=== PATIENT | female | born 1955 | race Caucasian/White ===

== ENCOUNTER 2016-04-24 23:21 | Inpatient (IN) | payer OTHER, MEDICAID ==
[~2016-04-24] VITALS: Ht 154.9 cm; Wt 74.9 kg
[~2016-04-24 23:21] MED LIST: RISP2 PO
[2016-04-24 23:36] LABS: GLUCOSE,POINT OF CARE 118 MG/DL (70-110)
[2016-04-25 01:10] LABS: BASOPHILS % (AUTO) 0.4 % (0.0-2.0); HEMATOCRIT 35.1 % (36-46); HEMOGLOBIN 11.5 g/dL (12.0-16.0); LYMPHOCYTES # (AUTO) 1.7 K/uL (1.0-4.8); LYMPHOCYTES % (AUTO) 11.8 % (22.0-44.0); MEAN CORPUSCULAR HEMOGLOBIN 29.2 pg (26.0-34.0); MEAN CORPUSCULAR HGB CONC 32.8 G/dL (31.0-37.0); MEAN CORPUSCULAR VOLUME 89 fL (80-100); MONOCYTES # (AUTO) 1.1 K/uL (0.1-1.0); MONOCYTES % (AUTO) 7.8 % (2.0-9.0); NEUTROPHILS # (AUTO) 10.4 K/uL (1.8-7.7); PLATELET COUNT (AUTO) 244 K/uL (150-450); RED BLOOD CELL COUNT(AUTO) 3.94 MIL/uL (4.00-5.20); RED CELL DISTRIBUTION WIDTH 14.1 % (11.5-14.5); WHITE BLOOD COUNT (AUTO) 14.1 K/uL (4.5-11.0)
[2016-04-25 01:16] LABS: ANION GAP 7 mmol/L (8-16); CALCIUM, TOTAL 8.5 mg/dL (8.8-10.5); CARBON DIOXIDE 29 mmol/L (22-29); CHLORIDE 104 mmol/L (98-107); CREATININE 0.74 mg/dL (0.60-1.30); GLOMERULAR FILTR. RATE CALC > 60 mL/min (>60); POTASSIUM 3.7 mmol/L (3.5-5.1); SODIUM SERUM 140 mmol/L (136-145); UREA NITROGEN, BLOOD 17 mg/dL (7-18)
[2016-04-25 01:21] LABS: ALANINE AMINOTRANSFERASE 21 U/L (12-78); ALBUMIN 3.2 g/dL (3.4-5.0); ASPARTATE AMINOTRANSFERASE 11 U/L (15-37); BILIRUBIN,TOTAL 0.2 mg/dL (0.1-1.0); TOTAL PROTEIN, SERUM 6.6 g/dL (6.4-8.2)
[2016-04-25] MEDS ORDERED: HALOPERIDOL LACTATE 5 MG/ML VIAL IM ONE (01:45)
[2016-04-25] MEDS ORDERED: DiphenhydrAMINE HCL 50 MG/ML VIAL IM ONE (01:45)
[2016-04-25] MEDS ORDERED: LORazepam 2 MG/ML VIAL IM ONE (01:45)
[2016-04-25] MEDS: LORazepam 2 MG TABLET PO PRN (01:53)
[2016-04-25] MEDS: HALOPERIDOL 5 MG TABLET PO PRN (01:53)
[2016-04-25 06:09] VITALS: BP 113/60
[2016-04-25 08:43] VITALS: BP 131/66
[2016-04-25] MEDS ORDERED: IBUPROFEN 600 MG TABLET PO PRN (11:45)
[2016-04-25] MEDS: ACETAMINOPHEN 325 MG TABLET PO SCH ×2 (12:52→17:02)
[2016-04-25 16:09] VITALS: BP 129/59
[2016-04-25] MEDS: OXYBUTYNIN CHLORIDE 5 MG TABLET PO SCH (20:16)
[2016-04-26] MEDS: ACETAMINOPHEN 325 MG TABLET PO SCH ×2 (06:00)
[2016-04-26 08:04] VITALS: BP 110/88
[2016-04-26] MEDS: AmLODIPine BESYLATE 5 MG TABLET PO SCH (08:33)
[2016-04-26] MEDS: LORATADINE 10 MG TABLET PO SCH (08:33)
[2016-04-26] MEDS: TERBINAFINE HCL 250 MG TABLET PO SCH (08:33)
[2016-04-26] MEDS: ALLOPURINOL 300 MG TABLET PO SCH (08:33)
[2016-04-26 09:54] LABS: APPEARANCE,URINE CLOUDY (CLEAR); GLUCOSE, URINE (UA) NEGATIVE (NEGATIVE); KETONES,URINE NEGATIVE (NEGATIVE); LEUKOCYTE ESTERASE ,URINE MODERATE (NEGATIVE); OCCULT BLOOD,URINE NEGATIVE (NEGATIVE); PH,URINE 6.5 (5.0-8.0); PROTEIN,URINE NEGATIVE (NEGATIVE)
[2016-04-26 09:58] LABS: ADD UA MICROSCOPIC YES
[2016-04-26 10:07] LABS: RBC,URINE None Seen /HPF (0-2); SQUAMOUS EPITHELIAL CELL,UR Rare /LPF (None Seen)
[2016-04-26] MEDS ORDERED: ACETAMINOPHEN 325 MG TABLET PO PRN (12:00)
[2016-04-26] MEDS: LORazepam 2 MG TABLET PO PRN (13:59)
[2016-04-26 16:06] VITALS: BP 130/71
[2016-04-26] MEDS: OXYBUTYNIN CHLORIDE 5 MG TABLET PO SCH (21:10)
[2016-04-27 06:27] VITALS: BP 134/63
[2016-04-27 08:26] VITALS: BP 133/66
[2016-04-27 08:26] LABS: BASOPHILS % (AUTO) 0.7 % (0.0-2.0); EOSINOPHILS % (AUTO) 12.4 % (1.0-6.0); HEMATOCRIT 36.5 % (36-46); LYMPHOCYTES # (AUTO) 2.1 K/uL (1.0-4.8); MEAN CORPUSCULAR HEMOGLOBIN 29.4 pg (26.0-34.0); MEAN CORPUSCULAR HGB CONC 32.7 G/dL (31.0-37.0); MEAN CORPUSCULAR VOLUME 90 fL (80-100); MONOCYTES # (AUTO) 0.7 K/uL (0.1-1.0); MONOCYTES % (AUTO) 9.6 % (2.0-9.0); NEUTROPHILS # (AUTO) 3.4 K/uL (1.8-7.7); NEUTROPHILS % (AUTO) 47.3 % (40.0-70.0); PLATELET COUNT (AUTO) 251 K/uL (150-450); RED BLOOD CELL COUNT(AUTO) 4.07 MIL/uL (4.00-5.20); RED CELL DISTRIBUTION WIDTH 14.2 % (11.5-14.5); WHITE BLOOD COUNT (AUTO) 7.1 K/uL (4.5-11.0)
[2016-04-27] MEDS: LORATADINE 10 MG TABLET PO SCH (09:42)
[2016-04-27] MEDS: TERBINAFINE HCL 250 MG TABLET PO SCH (09:42)
[2016-04-27] MEDS: AmLODIPine BESYLATE 5 MG TABLET PO SCH (09:42)
[2016-04-27] MEDS: ALLOPURINOL 300 MG TABLET PO SCH (09:42)
[2016-04-27] MEDS: LORazepam 2 MG TABLET PO PRN (09:42)
[2016-04-27] MEDS: OXYBUTYNIN CHLORIDE 5 MG TABLET PO SCH (21:00)
[2016-04-28] MEDS: ALLOPURINOL 300 MG TABLET PO SCH (09:00)
[2016-04-28] MEDS: AmLODIPine BESYLATE 5 MG TABLET PO SCH (09:00)
[2016-04-28] MEDS: TERBINAFINE HCL 250 MG TABLET PO SCH (09:00)
[2016-04-28] MEDS: LORATADINE 10 MG TABLET PO SCH (09:00)
[2016-04-28] MEDS ORDERED: PERMETHRIN 1% 60 ML LOTION TP ONE (16:00)
[2016-04-28] MEDS: OXYBUTYNIN CHLORIDE 5 MG TABLET PO SCH (21:00)
[2016-04-28] MEDS ORDERED: PERMETHRIN 5% 60 GM CREAM TP ONE (23:35)
[2016-04-28] MEDS: HALOPERIDOL 5 MG TABLET PO PRN (23:55)
[2016-04-28] MEDS: LORazepam 2 MG TABLET PO PRN (23:55)
[2016-04-29 08:54] VITALS: BP 131/69
[2016-04-29] MEDS: ALLOPURINOL 300 MG TABLET PO SCH (10:21)
[2016-04-29] MEDS: AmLODIPine BESYLATE 5 MG TABLET PO SCH (10:21)
[2016-04-29] MEDS: TERBINAFINE HCL 250 MG TABLET PO SCH (10:21)
[2016-04-29] MEDS: LORazepam 2 MG TABLET PO PRN (10:21)
[2016-04-29] MEDS: LORATADINE 10 MG TABLET PO SCH (10:22)
[2016-04-29 16:04] VITALS: BP 108/67
[2016-04-29] MEDS: NITROFURANTOIN/NITROFURAN MAC 100 MG CAPSULE [MACROBID] PO SCH (17:17)
[2016-04-29] MEDS: OXYBUTYNIN CHLORIDE 5 MG TABLET PO SCH (20:36)
[2016-04-30 08:30] VITALS: BP 112/62
[2016-04-30] MEDS: LORATADINE 10 MG TABLET PO SCH (08:42)
[2016-04-30] MEDS: ALLOPURINOL 300 MG TABLET PO SCH (08:42)
[2016-04-30] MEDS: NITROFURANTOIN/NITROFURAN MAC 100 MG CAPSULE [MACROBID] PO SCH ×2 (08:42→16:27)
[2016-04-30] MEDS: AmLODIPine BESYLATE 5 MG TABLET PO SCH (08:42)
[2016-04-30] MEDS: TERBINAFINE HCL 250 MG TABLET PO SCH (08:42)
[2016-04-30 16:00] VITALS: BP 137/81
[2016-04-30] MEDS: OXYBUTYNIN CHLORIDE 5 MG TABLET PO SCH (20:11)
[2016-05-01 09:01] VITALS: BP 110/62
[2016-05-01] MEDS: ALLOPURINOL 300 MG TABLET PO SCH (09:20)
[2016-05-01] MEDS: LORATADINE 10 MG TABLET PO SCH (09:20)
[2016-05-01] MEDS: NITROFURANTOIN/NITROFURAN MAC 100 MG CAPSULE [MACROBID] PO SCH ×2 (09:20→16:40)
[2016-05-01] MEDS: AmLODIPine BESYLATE 5 MG TABLET PO SCH (09:20)
[2016-05-01] MEDS: TERBINAFINE HCL 250 MG TABLET PO SCH (09:20)
[2016-05-01 16:05] VITALS: BP 117/65
[2016-05-01] MEDS: OXYBUTYNIN CHLORIDE 5 MG TABLET PO SCH (20:35)
[2016-05-02 08:31] VITALS: BP 120/59
[2016-05-02] MEDS ORDERED: RisperiDONE MICROSPHERES 50 MG/2 ML SYRINGE IM SCH (09:00)
[2016-05-02] MEDS: AmLODIPine BESYLATE 5 MG TABLET PO SCH (09:18)
[2016-05-02] MEDS: LORATADINE 10 MG TABLET PO SCH (09:18)
[2016-05-02] MEDS: ALLOPURINOL 300 MG TABLET PO SCH (09:18)
[2016-05-02] MEDS: TERBINAFINE HCL 250 MG TABLET PO SCH (09:18)
[2016-05-02] MEDS: NITROFURANTOIN/NITROFURAN MAC 100 MG CAPSULE [MACROBID] PO SCH (09:18)
[2016-05-02] MEDS: NICOTINE 21 MG/24 HOUR PATCH TD SCH (10:45)
[2016-05-02] MEDS ORDERED: RISPC50 IM (11:32)
[2016-05-02] MEDS ORDERED: OXYB5 PO (11:34)
[2016-05-02] MEDS ORDERED: LORA10TA7 PO (11:42)
[2016-05-02] MEDS ORDERED: TERB250 PO (11:43)
[2016-05-02] MEDS ORDERED: ALLO300 PO (11:44)
[2016-05-02] MEDS ORDERED: AMLO-511 PO (11:44)
[2016-05-02 16:07] VITALS: BP 128/85
[2016-05-02] MEDS: OXYBUTYNIN CHLORIDE 5 MG TABLET PO SCH (20:09)
[2016-05-03 06:55] VITALS: BP 133/72
[2016-05-03 08:14] VITALS: BP 148/64
[2016-05-03] MEDS: AmLODIPine BESYLATE 5 MG TABLET PO SCH (08:48)
[2016-05-03] MEDS: ALLOPURINOL 300 MG TABLET PO SCH (08:48)
[2016-05-03] MEDS: TERBINAFINE HCL 250 MG TABLET PO SCH (08:48)
[2016-05-03] MEDS: LORATADINE 10 MG TABLET PO SCH (08:49)
[2016-05-03] MEDS: NICOTINE 21 MG/24 HOUR PATCH TD SCH (09:00)
[2016-05-03 16:02] VITALS: BP 128/80
[2016-05-03] MEDS: OXYBUTYNIN CHLORIDE 5 MG TABLET PO SCH (20:02)
[2016-05-03] MEDS: LORazepam 2 MG TABLET PO PRN (21:51)
[2016-05-04 08:40] VITALS: BP 134/70
[2016-05-04] MEDS: ALLOPURINOL 300 MG TABLET PO SCH (10:52)
[2016-05-04] MEDS: TERBINAFINE HCL 250 MG TABLET PO SCH (10:52)
[2016-05-04] MEDS: AmLODIPine BESYLATE 5 MG TABLET PO SCH (10:53)
[2016-05-04] MEDS: LORATADINE 10 MG TABLET PO SCH (10:53)
[2016-05-04] MEDS: NICOTINE 21 MG/24 HOUR PATCH TD SCH (10:54)
[2016-05-04 16:07] VITALS: BP 132/81
[2016-05-04] MEDS: OXYBUTYNIN CHLORIDE 5 MG TABLET PO SCH (20:11)
[2016-05-05 08:13] VITALS: BP 120/60
[2016-05-05] MEDS: HALOPERIDOL 5 MG TABLET PO PRN (10:04)
[2016-05-05] MEDS: ALLOPURINOL 300 MG TABLET PO SCH (10:04)
[2016-05-05] MEDS: AmLODIPine BESYLATE 5 MG TABLET PO SCH (10:04)
[2016-05-05] MEDS: LORazepam 2 MG TABLET PO PRN ×2 (10:04→20:48)
[2016-05-05] MEDS: LORATADINE 10 MG TABLET PO SCH (10:04)
[2016-05-05] MEDS: TERBINAFINE HCL 250 MG TABLET PO SCH (10:05)
[2016-05-05] MEDS: NICOTINE 21 MG/24 HOUR PATCH TD SCH (10:05)
[2016-05-05] MEDS ORDERED: PERMETHRIN 1% 60 ML LOTION TP ONE (12:00)
[2016-05-05 16:42] VITALS: BP 121/61
[2016-05-05] MEDS: OXYBUTYNIN CHLORIDE 5 MG TABLET PO SCH (20:48)
[2016-05-06 08:30] VITALS: BP 146/69
[2016-05-06] MEDS: AmLODIPine BESYLATE 5 MG TABLET PO SCH (10:35)
[2016-05-06] MEDS: TERBINAFINE HCL 250 MG TABLET PO SCH (10:35)
[2016-05-06] MEDS: LORATADINE 10 MG TABLET PO SCH (10:35)
[2016-05-06] MEDS: ALLOPURINOL 300 MG TABLET PO SCH (10:35)
[2016-05-06] MEDS: NICOTINE 21 MG/24 HOUR PATCH TD SCH (10:36)
[2016-05-06 16:33] VITALS: BP 135/77
[2016-05-06] MEDS: LORazepam 2 MG TABLET PO PRN (20:05)
[2016-05-06] MEDS: OXYBUTYNIN CHLORIDE 5 MG TABLET PO SCH (20:10)
[2016-05-06] MEDS: ZOLPIDEM TARTRATE 10 MG TABLET PO PRN (22:38)
[2016-05-07] MEDS: AmLODIPine BESYLATE 5 MG TABLET PO SCH (08:03)
[2016-05-07] MEDS: ALLOPURINOL 300 MG TABLET PO SCH (08:03)
[2016-05-07] MEDS: LORATADINE 10 MG TABLET PO SCH (08:03)
[2016-05-07] MEDS: NICOTINE 21 MG/24 HOUR PATCH TD SCH (08:03)
[2016-05-07] MEDS: TERBINAFINE HCL 250 MG TABLET PO SCH (08:03)
[2016-05-07 08:30] VITALS: BP 112/61
[2016-05-07] MEDS: LORazepam 2 MG TABLET PO PRN ×2 (09:06→16:01)
[2016-05-07] MEDS ORDERED: IVERMECTIN 3 MG TABLET PO ONE (12:00)
[2016-05-07 16:03] VITALS: BP 118/61
[2016-05-07] MEDS: ZOLPIDEM TARTRATE 10 MG TABLET PO PRN (20:55)
[2016-05-07] MEDS: OXYBUTYNIN CHLORIDE 5 MG TABLET PO SCH (20:55)
[2016-05-08] MEDS: NICOTINE 21 MG/24 HOUR PATCH TD SCH (10:20)
[2016-05-08] MEDS: AmLODIPine BESYLATE 5 MG TABLET PO SCH (10:20)
[2016-05-08] MEDS: LORATADINE 10 MG TABLET PO SCH (10:20)
[2016-05-08] MEDS: TERBINAFINE HCL 250 MG TABLET PO SCH (10:20)
[2016-05-08] MEDS: ALLOPURINOL 300 MG TABLET PO SCH (10:20)
[2016-05-08 16:11] VITALS: BP 124/69
[2016-05-08] MEDS: LORazepam 2 MG TABLET PO PRN (16:22)
[2016-05-08] MEDS: OXYBUTYNIN CHLORIDE 5 MG TABLET PO SCH (20:05)
[2016-05-08] MEDS: ZOLPIDEM TARTRATE 10 MG TABLET PO PRN (20:05)
[2016-05-09 06:43] VITALS: BP 130/72
[2016-05-09 08:28] VITALS: BP 126/69
[2016-05-09] MEDS: TERBINAFINE HCL 250 MG TABLET PO SCH (08:28)
[2016-05-09] MEDS: AmLODIPine BESYLATE 5 MG TABLET PO SCH (08:28)
[2016-05-09] MEDS: LORATADINE 10 MG TABLET PO SCH (08:28)
[2016-05-09] MEDS: ALLOPURINOL 300 MG TABLET PO SCH (08:28)
[2016-05-09] MEDS: NICOTINE 21 MG/24 HOUR PATCH TD SCH (08:29)
[2016-05-09] MEDS: LORazepam 2 MG TABLET PO PRN (10:06)
[2016-05-09 16:01] VITALS: BP 114/57
[2016-05-09] MEDS: OXYBUTYNIN CHLORIDE 5 MG TABLET PO SCH (20:09)
[2016-05-10 05:41] VITALS: BP 104/53
[2016-05-10 08:19] VITALS: BP 108/64
[2016-05-10] MEDS: AmLODIPine BESYLATE 5 MG TABLET PO SCH (09:44)
[2016-05-10] MEDS: LORATADINE 10 MG TABLET PO SCH (09:44)
[2016-05-10] MEDS: ALLOPURINOL 300 MG TABLET PO SCH (09:45)
[2016-05-10] MEDS: TERBINAFINE HCL 250 MG TABLET PO SCH (09:45)
[2016-05-10] MEDS: NICOTINE 21 MG/24 HOUR PATCH TD SCH (09:45)
== END 2016-05-10 15:21 | disposition home or self-care (01) | DRG 750 ==
LOC: EMS 23:26 → B3A 04-25 01:15
PROVIDERS: ADMIT Psychiatry & Neurology Psychiatry; ATTEND Psychiatry & Neurology Psychiatry
DX: F25.0 Schizoaffective disorder, bipolar type (principal); F23 Brief psychotic disorder; J44.9 Chronic obstructive pulmonary disease, unspecified; B19.20 Unspecified viral hepatitis C without hepatic coma; B85.2 Pediculosis, unspecified; D72.829 Elevated white blood cell count, unspecified; F22 Delusional disorders; F17.210 Nicotine dependence, cigarettes, uncomplicated; R32 Unspecified urinary incontinence; Z88.5 Allergy status to narcotic agent; Z88.8 Allergy status to other drugs, medicaments and biological substances; Z91.02 Food additives allergy status; Z79.899 Other long term (current) drug therapy; Z90.49 Acquired absence of other specified parts of digestive tract
CPT/HCPCS: 80307; 82962; 87081; 87086; 99285; G0480; J2794

== ENCOUNTER 2016-07-08 16:15 | Inpatient (IN) | payer MEDICAID, OTHER ==
[~2016-07-08] VITALS: Ht 157.5 cm; Wt 75.3 kg
[2016-07-08] MEDS ORDERED: DiphenhydrAMINE HCL 50 MG/ML VIAL IM ONE (16:30)
[2016-07-08] MEDS ORDERED: HALOPERIDOL LACTATE 5 MG/ML VIAL IM ONE (16:30)
[2016-07-08] MEDS ORDERED: LORazepam 2 MG/ML VIAL IM ONE (16:30)
[2016-07-08 16:32] LABS: BASOPHILS % (AUTO) 0.5 % (0.0-2.0); EOSINOPHILS % (AUTO) 1.4 % (1.0-6.0); HEMATOCRIT 34.8 % (36-46); HEMOGLOBIN 11.4 g/dL (12.0-16.0); LYMPHOCYTES # (AUTO) 1.9 K/uL (1.0-4.8); LYMPHOCYTES % (AUTO) 25.1 % (22.0-44.0); MEAN CORPUSCULAR HEMOGLOBIN 29.2 pg (26.0-34.0); MEAN CORPUSCULAR HGB CONC 32.7 G/dL (31.0-37.0); MEAN CORPUSCULAR VOLUME 89 fL (80-100); MONOCYTES # (AUTO) 0.6 K/uL (0.1-1.0); MONOCYTES % (AUTO) 7.5 % (2.0-9.0); NEUTROPHILS # (AUTO) 4.9 K/uL (1.8-7.7); NEUTROPHILS % (AUTO) 65.5 % (40.0-70.0); PLATELET COUNT (AUTO) 255 K/uL (150-450); RED BLOOD CELL COUNT(AUTO) 3.89 MIL/uL (4.00-5.20); RED CELL DISTRIBUTION WIDTH 15.3 % (11.5-14.5); WHITE BLOOD COUNT (AUTO) 7.5 K/uL (4.5-11.0)
[2016-07-08 16:42] LABS: ANION GAP 10 mmol/L (8-16); CALCIUM, TOTAL 8.9 mg/dL (8.8-10.5); CARBON DIOXIDE 28 mmol/L (22-29); CHLORIDE 109 mmol/L (98-107); CREATININE 0.61 mg/dL (0.60-1.30); GLOMERULAR FILTR. RATE CALC > 60 mL/min (>60); POTASSIUM 3.9 mmol/L (3.5-5.1); SODIUM SERUM 147 mmol/L (136-145); UREA NITROGEN, BLOOD 11 mg/dL (7-18)
[2016-07-08 16:50] LABS: ALANINE AMINOTRANSFERASE 14 U/L (12-78); ALBUMIN 3.4 g/dL (3.4-5.0); ASPARTATE AMINOTRANSFERASE 8 U/L (15-37); BILIRUBIN,TOTAL 0.2 mg/dL (0.1-1.0)
[2016-07-08] MEDS ORDERED: PERMETHRIN 1% 60 ML LOTION TP ONE (18:00)
[2016-07-09] MEDS ORDERED: ACETAMINOPHEN 325 MG TABLET PO PRN (11:45)
[2016-07-09] MEDS ORDERED: ONDANSETRON HCL 4 MG/2 ML VIAL IVP PRN (11:45)
[2016-07-09 12:37] VITALS: BP 139/77
[2016-07-09] MEDS: HALOPERIDOL 5 MG TABLET PO PRN (13:26)
[2016-07-09] MEDS: LORazepam 2 MG TABLET PO PRN (13:26)
[2016-07-09 16:31] VITALS: BP 122/59
[2016-07-09] MEDS: RisperiDONE 2 MG TABLET PO SCH (20:20)
[2016-07-09] MEDS: OXYBUTYNIN CHLORIDE 5 MG TABLET PO SCH (20:20)
[2016-07-10] MEDS: RisperiDONE 2 MG TABLET PO SCH ×2 (07:37→21:00)
[2016-07-10] MEDS: TERBINAFINE HCL 250 MG TABLET PO SCH (07:38)
[2016-07-10] MEDS: ALLOPURINOL 300 MG TABLET PO SCH (07:38)
[2016-07-10] MEDS: AmLODIPine BESYLATE 5 MG TABLET PO SCH (07:38)
[2016-07-10] MEDS: LORATADINE 10 MG TABLET PO SCH (07:38)
[2016-07-10] MEDS: HALOPERIDOL 5 MG TABLET PO PRN (07:39)
[2016-07-10] MEDS: LORazepam 2 MG TABLET PO PRN (07:39)
[2016-07-10 08:00] VITALS: BP 130/77
[2016-07-10] MEDS ORDERED: RISPC50 IM (15:06)
[2016-07-10 16:04] VITALS: BP 147/86
[2016-07-10] MEDS: RisperiDONE MICROSPHERES 50 MG/2 ML SYRINGE IM SCH (16:49)
[2016-07-10] MEDS: OXYBUTYNIN CHLORIDE 5 MG TABLET PO SCH (20:59)
[2016-07-11] MEDS: LORATADINE 10 MG TABLET PO SCH (08:26)
[2016-07-11] MEDS: AmLODIPine BESYLATE 5 MG TABLET PO SCH (08:26)
[2016-07-11] MEDS: ALLOPURINOL 300 MG TABLET PO SCH (08:26)
[2016-07-11] MEDS: RisperiDONE 2 MG TABLET PO SCH ×2 (08:26→21:57)
[2016-07-11] MEDS: TERBINAFINE HCL 250 MG TABLET PO SCH (08:27)
[2016-07-11 08:55] VITALS: BP 122/93
[2016-07-11] MEDS: LORazepam 2 MG TABLET PO PRN (09:00)
[2016-07-11] MEDS: HALOPERIDOL 5 MG TABLET PO PRN (09:01)
[2016-07-11 16:17] VITALS: BP 140/79
[2016-07-11] MEDS: OXYBUTYNIN CHLORIDE 5 MG TABLET PO SCH (21:57)
[2016-07-12] MEDS: AmLODIPine BESYLATE 5 MG TABLET PO SCH (08:02)
[2016-07-12] MEDS: TERBINAFINE HCL 250 MG TABLET PO SCH (08:02)
[2016-07-12] MEDS: LORATADINE 10 MG TABLET PO SCH (08:02)
[2016-07-12] MEDS: ALLOPURINOL 300 MG TABLET PO SCH (08:03)
[2016-07-12] MEDS: RisperiDONE 2 MG TABLET PO SCH ×2 (08:03→21:20)
[2016-07-12 08:05] VITALS: BP 132/77
[2016-07-12 16:27] VITALS: BP 125/82
[2016-07-12] MEDS: OXYBUTYNIN CHLORIDE 5 MG TABLET PO SCH (21:21)
[2016-07-12] MEDS: LORazepam 2 MG TABLET PO PRN (23:41)
[2016-07-12] MEDS: HALOPERIDOL 5 MG TABLET PO PRN (23:54)
[2016-07-13] MEDS ORDERED: LORazepam 2 MG/ML VIAL IM ONE (00:45)
[2016-07-13] MEDS ORDERED: DiphenhydrAMINE HCL 50 MG/ML VIAL IM ONE (00:45)
[2016-07-13] MEDS ORDERED: HALOPERIDOL LACTATE 5 MG/ML VIAL IM ONE (00:45)
[2016-07-13 01:11] VITALS: BP 120/80
[2016-07-13 02:11] VITALS: BP 128/82
[2016-07-13] MEDS: LORATADINE 10 MG TABLET PO SCH (10:50)
[2016-07-13] MEDS: TERBINAFINE HCL 250 MG TABLET PO SCH (10:50)
[2016-07-13] MEDS: OXYBUTYNIN CHLORIDE 5 MG TABLET PO SCH (10:50)
[2016-07-13] MEDS: ALLOPURINOL 300 MG TABLET PO SCH (10:50)
[2016-07-13] MEDS: RisperiDONE 2 MG TABLET PO SCH ×2 (10:50→20:21)
[2016-07-13] MEDS: HALOPERIDOL 5 MG TABLET PO PRN (10:53)
[2016-07-13] MEDS: LORazepam 2 MG TABLET PO PRN (10:53)
[2016-07-13] MEDS: AmLODIPine BESYLATE 5 MG TABLET PO SCH (10:53)
[2016-07-13 16:25] VITALS: BP 124/83
[2016-07-13 16:27] VITALS: BP 124/83
[2016-07-14] MEDS: TERBINAFINE HCL 250 MG TABLET PO SCH (10:57)
[2016-07-14] MEDS: RisperiDONE 2 MG TABLET PO SCH ×2 (10:57→21:08)
[2016-07-14] MEDS: ALLOPURINOL 300 MG TABLET PO SCH (10:57)
[2016-07-14] MEDS: LORATADINE 10 MG TABLET PO SCH (10:57)
[2016-07-14] MEDS: AmLODIPine BESYLATE 5 MG TABLET PO SCH (10:58)
[2016-07-14] MEDS: HALOPERIDOL 5 MG TABLET PO PRN (11:01)
[2016-07-14] MEDS ORDERED: FLUCONAZOLE 150 MG TABLET PO ONE (11:30)
[2016-07-14 12:33] VITALS: BP 134/80
[2016-07-14 13:06] LABS: APPEARANCE,URINE TURBID (CLEAR); GLUCOSE, URINE (UA) NEGATIVE (NEGATIVE); KETONES,URINE NEGATIVE (NEGATIVE); LEUKOCYTE ESTERASE ,URINE LARGE (NEGATIVE); OCCULT BLOOD,URINE LARGE (NEGATIVE); PH,URINE 5.5 (5.0-8.0); PROTEIN,URINE SEE CONFIRM (NEGATIVE)
[2016-07-14 13:16] LABS: SQUAMOUS EPITHELIAL CELL,UR Moderate /LPF (None Seen); SULFOSALICYLIC ACID,URINE 2+ (Negative); WBC,URINE 51-100 /HPF (0-5)
[2016-07-14] MEDS: LORazepam 2 MG TABLET PO PRN (14:45)
[2016-07-14] MEDS: NITROFURANTOIN/NITROFURAN MAC 100 MG CAPSULE [MACROBID] PO SCH (16:41)
[2016-07-14 17:48] VITALS: BP 121/69
[2016-07-14] MEDS: OXYBUTYNIN CHLORIDE 5 MG TABLET PO SCH (21:08)
[2016-07-15] MEDS: AmLODIPine BESYLATE 5 MG TABLET PO SCH (08:08)
[2016-07-15] MEDS: NITROFURANTOIN/NITROFURAN MAC 100 MG CAPSULE [MACROBID] PO SCH ×2 (08:08→16:53)
[2016-07-15] MEDS: LORazepam 2 MG TABLET PO PRN ×2 (08:08→18:11)
[2016-07-15] MEDS: RisperiDONE 2 MG TABLET PO SCH ×2 (08:08→20:12)
[2016-07-15] MEDS: HALOPERIDOL 5 MG TABLET PO PRN ×2 (08:08→18:11)
[2016-07-15] MEDS: LORATADINE 10 MG TABLET PO SCH (08:08)
[2016-07-15] MEDS: TERBINAFINE HCL 250 MG TABLET PO SCH (08:08)
[2016-07-15] MEDS: ALLOPURINOL 300 MG TABLET PO SCH (08:09)
[2016-07-15 08:17] VITALS: BP 112/80
[2016-07-15] MEDS ORDERED: NICOTINE 21 MG/24 HOUR PATCH TD ONE (14:30)
[2016-07-15 17:04] VITALS: BP 131/76
[2016-07-15] MEDS: OXYBUTYNIN CHLORIDE 5 MG TABLET PO SCH (20:12)
[2016-07-16] MEDS: RisperiDONE 2 MG TABLET PO SCH ×2 (07:54→21:04)
[2016-07-16] MEDS: LORazepam 2 MG TABLET PO PRN ×2 (07:54→16:02)
[2016-07-16] MEDS: NITROFURANTOIN/NITROFURAN MAC 100 MG CAPSULE [MACROBID] PO SCH ×2 (07:54→16:03)
[2016-07-16] MEDS: AmLODIPine BESYLATE 5 MG TABLET PO SCH (07:54)
[2016-07-16] MEDS: HALOPERIDOL 5 MG TABLET PO PRN ×2 (07:54→16:02)
[2016-07-16] MEDS: LORATADINE 10 MG TABLET PO SCH (07:55)
[2016-07-16] MEDS: TERBINAFINE HCL 250 MG TABLET PO SCH (07:55)
[2016-07-16] MEDS: ALLOPURINOL 300 MG TABLET PO SCH (07:55)
[2016-07-16] MEDS: LOPERAMIDE HCL 2 MG CAPSULE PO PRN (07:56)
[2016-07-16 08:00] VITALS: BP 131/67
[2016-07-16] MEDS: NICOTINE 21 MG/24 HOUR PATCH TD SCH (08:03)
[2016-07-16 16:38] VITALS: BP 133/78
[2016-07-16] MEDS: OXYBUTYNIN CHLORIDE 5 MG TABLET PO SCH (21:04)
[2016-07-17] MEDS: RisperiDONE 2 MG TABLET PO SCH ×2 (07:43→20:22)
[2016-07-17] MEDS: HALOPERIDOL 5 MG TABLET PO PRN ×2 (07:43→15:30)
[2016-07-17] MEDS: LORazepam 2 MG TABLET PO PRN ×2 (07:43→15:30)
[2016-07-17] MEDS: ALLOPURINOL 300 MG TABLET PO SCH (07:44)
[2016-07-17] MEDS: AmLODIPine BESYLATE 5 MG TABLET PO SCH (07:44)
[2016-07-17] MEDS: TERBINAFINE HCL 250 MG TABLET PO SCH (07:44)
[2016-07-17] MEDS: LORATADINE 10 MG TABLET PO SCH (07:45)
[2016-07-17] MEDS: NITROFURANTOIN/NITROFURAN MAC 100 MG CAPSULE [MACROBID] PO SCH (07:45)
[2016-07-17] MEDS: NICOTINE 21 MG/24 HOUR PATCH TD SCH (07:54)
[2016-07-17 10:02] VITALS: BP 121/52
[2016-07-17 16:00] VITALS: BP 143/70
[2016-07-17] MEDS: OXYBUTYNIN CHLORIDE 5 MG TABLET PO SCH (20:22)
[2016-07-18] MEDS: TERBINAFINE HCL 250 MG TABLET PO SCH (09:42)
[2016-07-18] MEDS: LORATADINE 10 MG TABLET PO SCH (09:42)
[2016-07-18] MEDS: ALLOPURINOL 300 MG TABLET PO SCH (09:42)
[2016-07-18] MEDS: AmLODIPine BESYLATE 5 MG TABLET PO SCH (09:43)
[2016-07-18] MEDS: RisperiDONE 2 MG TABLET PO SCH ×2 (09:43→20:22)
[2016-07-18] MEDS: DIVALPROEX SODIUM 500 MG DR TABLET PO SCH ×2 (09:44→20:22)
[2016-07-18 09:45] VITALS: BP 124/82
[2016-07-18] MEDS: NICOTINE 21 MG/24 HOUR PATCH TD SCH (09:59)
[2016-07-18 17:36] VITALS: BP 128/78
[2016-07-18] MEDS: OXYBUTYNIN CHLORIDE 5 MG TABLET PO SCH (20:22)
[2016-07-19] MEDS: LORazepam 2 MG TABLET PO PRN (03:39)
[2016-07-19 03:42] VITALS: BP 122/76
[2016-07-19] MEDS ORDERED: IBUPROFEN 600 MG TABLET PO PRN (08:15)
[2016-07-19 08:18] VITALS: BP 132/71
[2016-07-19] MEDS: TERBINAFINE HCL 250 MG TABLET PO SCH (08:41)
[2016-07-19] MEDS: RisperiDONE 2 MG TABLET PO SCH ×2 (08:41→21:30)
[2016-07-19] MEDS: LORATADINE 10 MG TABLET PO SCH (08:41)
[2016-07-19] MEDS: ALLOPURINOL 300 MG TABLET PO SCH (08:41)
[2016-07-19] MEDS: AmLODIPine BESYLATE 5 MG TABLET PO SCH (08:41)
[2016-07-19] MEDS: DIVALPROEX SODIUM 500 MG DR TABLET PO SCH ×2 (08:41→21:30)
[2016-07-19] MEDS: NICOTINE 21 MG/24 HOUR PATCH TD SCH (08:42)
[2016-07-19 16:38] VITALS: BP 141/88
[2016-07-19] MEDS: OXYBUTYNIN CHLORIDE 5 MG TABLET PO SCH (21:31)
[2016-07-20 08:28] VITALS: BP 106/55
[2016-07-20] MEDS: TERBINAFINE HCL 250 MG TABLET PO SCH (09:17)
[2016-07-20] MEDS: DIVALPROEX SODIUM 500 MG DR TABLET PO SCH ×2 (09:17→20:02)
[2016-07-20] MEDS: LORATADINE 10 MG TABLET PO SCH (09:17)
[2016-07-20] MEDS: RisperiDONE 2 MG TABLET PO SCH ×2 (09:17→20:02)
[2016-07-20] MEDS: AmLODIPine BESYLATE 5 MG TABLET PO SCH (09:17)
[2016-07-20] MEDS: ALLOPURINOL 300 MG TABLET PO SCH (09:18)
[2016-07-20] MEDS: NICOTINE 21 MG/24 HOUR PATCH TD SCH (09:22)
[2016-07-20] MEDS: LOPERAMIDE HCL 2 MG CAPSULE PO PRN (13:45)
[2016-07-20 16:00] VITALS: BP 118/63
[2016-07-20] MEDS: OXYBUTYNIN CHLORIDE 5 MG TABLET PO SCH (20:02)
[2016-07-21 08:00] VITALS: BP 122/73
[2016-07-21 08:32] VITALS: BP 122/73
[2016-07-21] MEDS: TERBINAFINE HCL 250 MG TABLET PO SCH (08:42)
[2016-07-21] MEDS: RisperiDONE 2 MG TABLET PO SCH ×2 (08:42→20:24)
[2016-07-21] MEDS: AmLODIPine BESYLATE 5 MG TABLET PO SCH (08:42)
[2016-07-21] MEDS: ALLOPURINOL 300 MG TABLET PO SCH (08:42)
[2016-07-21] MEDS: DIVALPROEX SODIUM 500 MG DR TABLET PO SCH ×2 (08:42→20:24)
[2016-07-21] MEDS: LORATADINE 10 MG TABLET PO SCH (08:42)
[2016-07-21] MEDS: NICOTINE 21 MG/24 HOUR PATCH TD SCH (12:54)
[2016-07-21] MEDS: LORazepam 2 MG TABLET PO PRN (15:57)
[2016-07-21] MEDS: HALOPERIDOL 5 MG TABLET PO PRN (15:58)
[2016-07-21 19:58] VITALS: BP 124/69
[2016-07-21] MEDS: OXYBUTYNIN CHLORIDE 5 MG TABLET PO SCH (20:24)
[2016-07-22 08:58] VITALS: BP 121/64
[2016-07-22] MEDS: SULFAMETHOX/TRIMETH DS 800-160 MG/TABLET PO SCH ×2 (09:04→16:36)
[2016-07-22] MEDS: LORATADINE 10 MG TABLET PO SCH (09:05)
[2016-07-22] MEDS: TERBINAFINE HCL 250 MG TABLET PO SCH (09:05)
[2016-07-22] MEDS: ALLOPURINOL 300 MG TABLET PO SCH (09:05)
[2016-07-22] MEDS: DIVALPROEX SODIUM 500 MG DR TABLET PO SCH ×2 (09:05→20:54)
[2016-07-22] MEDS: RisperiDONE 2 MG TABLET PO SCH ×2 (09:05→20:53)
[2016-07-22] MEDS: AmLODIPine BESYLATE 5 MG TABLET PO SCH (09:05)
[2016-07-22] MEDS: NICOTINE 21 MG/24 HOUR PATCH TD SCH (09:49)
[2016-07-22] MEDS ORDERED: IVERMECTIN 3 MG TABLET PO ONE (10:45)
[2016-07-22 16:12] VITALS: BP 109/65
[2016-07-22] MEDS: OXYBUTYNIN CHLORIDE 5 MG TABLET PO SCH (20:54)
[2016-07-23 04:56] VITALS: BP 112/71
[2016-07-23] MEDS: AmLODIPine BESYLATE 5 MG TABLET PO SCH (09:36)
[2016-07-23] MEDS: RisperiDONE 2 MG TABLET PO SCH ×2 (09:36→20:28)
[2016-07-23] MEDS: SULFAMETHOX/TRIMETH DS 800-160 MG/TABLET PO SCH ×2 (09:36→16:23)
[2016-07-23] MEDS: ALLOPURINOL 300 MG TABLET PO SCH (09:36)
[2016-07-23] MEDS: DIVALPROEX SODIUM 500 MG DR TABLET PO SCH ×2 (09:36→20:28)
[2016-07-23] MEDS: LORATADINE 10 MG TABLET PO SCH (09:36)
[2016-07-23] MEDS: TERBINAFINE HCL 250 MG TABLET PO SCH (09:36)
[2016-07-23] MEDS: NICOTINE 21 MG/24 HOUR PATCH TD SCH (09:38)
[2016-07-23 16:00] VITALS: BP 106/63
[2016-07-23] MEDS: LOPERAMIDE HCL 2 MG CAPSULE PO PRN (16:38)
[2016-07-23] MEDS: OXYBUTYNIN CHLORIDE 5 MG TABLET PO SCH (20:28)
[2016-07-24] MEDS: ALLOPURINOL 300 MG TABLET PO SCH (09:15)
[2016-07-24] MEDS: SULFAMETHOX/TRIMETH DS 800-160 MG/TABLET PO SCH ×2 (09:15→16:04)
[2016-07-24] MEDS: DIVALPROEX SODIUM 500 MG DR TABLET PO SCH ×2 (09:15→20:20)
[2016-07-24] MEDS: AmLODIPine BESYLATE 5 MG TABLET PO SCH (09:15)
[2016-07-24] MEDS: RisperiDONE 2 MG TABLET PO SCH ×2 (09:15→20:16)
[2016-07-24] MEDS: TERBINAFINE HCL 250 MG TABLET PO SCH (09:15)
[2016-07-24] MEDS: LORATADINE 10 MG TABLET PO SCH (09:15)
[2016-07-24] MEDS: NICOTINE 21 MG/24 HOUR PATCH TD SCH (09:16)
[2016-07-24] MEDS: RisperiDONE MICROSPHERES 50 MG/2 ML SYRINGE IM SCH (09:20)
[2016-07-24] MEDS: ACETAMINOPHEN 325 MG TABLET PO PRN (12:19)
[2016-07-24 16:11] VITALS: BP 108/59
[2016-07-24] MEDS: LORazepam 2 MG TABLET PO PRN (19:12)
[2016-07-24] MEDS: OXYBUTYNIN CHLORIDE 5 MG TABLET PO SCH (20:16)
[2016-07-25 07:13] VITALS: BP 112/65
[2016-07-25] MEDS: AmLODIPine BESYLATE 5 MG TABLET PO SCH (09:53)
[2016-07-25] MEDS: RisperiDONE 2 MG TABLET PO SCH ×2 (09:53→21:02)
[2016-07-25] MEDS: TERBINAFINE HCL 250 MG TABLET PO SCH (09:54)
[2016-07-25] MEDS: LORATADINE 10 MG TABLET PO SCH (09:54)
[2016-07-25] MEDS: DIVALPROEX SODIUM 500 MG DR TABLET PO SCH ×2 (09:54→21:02)
[2016-07-25] MEDS: NICOTINE 21 MG/24 HOUR PATCH TD SCH (09:54)
[2016-07-25] MEDS: SULFAMETHOX/TRIMETH DS 800-160 MG/TABLET PO SCH ×2 (09:54→16:39)
[2016-07-25] MEDS: ALLOPURINOL 300 MG TABLET PO SCH (09:54)
[2016-07-25 16:00] VITALS: BP 108/60
[2016-07-25] MEDS: LORazepam 2 MG TABLET PO PRN (18:29)
[2016-07-25] MEDS: OXYBUTYNIN CHLORIDE 5 MG TABLET PO SCH (21:02)
[2016-07-26] MEDS: AmLODIPine BESYLATE 5 MG TABLET PO SCH (10:11)
[2016-07-26] MEDS: SULFAMETHOX/TRIMETH DS 800-160 MG/TABLET PO SCH ×2 (10:11→16:01)
[2016-07-26] MEDS: RisperiDONE 2 MG TABLET PO SCH ×2 (10:11→20:10)
[2016-07-26] MEDS: LORATADINE 10 MG TABLET PO SCH (10:11)
[2016-07-26] MEDS: DIVALPROEX SODIUM 500 MG DR TABLET PO SCH (10:11)
[2016-07-26] MEDS: TERBINAFINE HCL 250 MG TABLET PO SCH (10:12)
[2016-07-26] MEDS: ALLOPURINOL 300 MG TABLET PO SCH (10:12)
[2016-07-26] MEDS: NICOTINE 21 MG/24 HOUR PATCH TD SCH (10:17)
[2016-07-26 16:03] VITALS: BP 115/64
[2016-07-26] MEDS: ACETAMINOPHEN 325 MG TABLET PO PRN (18:54)
[2016-07-26] MEDS: DIVALPROEX SODIUM 250 MG DR TABLET PO SCH (20:09)
[2016-07-26] MEDS: OXYBUTYNIN CHLORIDE 5 MG TABLET PO SCH (20:10)
[2016-07-26] MEDS ORDERED: DIVALPROEX SODIUM 500 MG DR TABLET PO SCH (21:00)
[2016-07-27] MEDS: TERBINAFINE HCL 250 MG TABLET PO SCH (08:25)
[2016-07-27] MEDS: RisperiDONE 2 MG TABLET PO SCH ×2 (08:25→20:20)
[2016-07-27] MEDS: LORATADINE 10 MG TABLET PO SCH (08:25)
[2016-07-27] MEDS: AmLODIPine BESYLATE 5 MG TABLET PO SCH (08:25)
[2016-07-27] MEDS: ALLOPURINOL 300 MG TABLET PO SCH (08:25)
[2016-07-27] MEDS: NICOTINE 21 MG/24 HOUR PATCH TD SCH (08:29)
[2016-07-27] MEDS: ACETAMINOPHEN 325 MG TABLET PO PRN (14:15)
[2016-07-27 14:21] VITALS: BP 147/79
[2016-07-27 16:07] VITALS: BP 125/70
[2016-07-27] MEDS: LORazepam 2 MG TABLET PO PRN (19:40)
[2016-07-27] MEDS: DIVALPROEX SODIUM 250 MG DR TABLET PO SCH (20:19)
[2016-07-27] MEDS: OXYBUTYNIN CHLORIDE 5 MG TABLET PO SCH (20:20)
[2016-07-27] MEDS: ZOLPIDEM TARTRATE 10 MG TABLET PO PRN (22:59)
[2016-07-28] MEDS: NICOTINE 21 MG/24 HOUR PATCH TD SCH (09:13)
[2016-07-28] MEDS: LORATADINE 10 MG TABLET PO SCH (09:13)
[2016-07-28] MEDS: RisperiDONE 2 MG TABLET PO SCH ×2 (09:13→20:32)
[2016-07-28] MEDS: TERBINAFINE HCL 250 MG TABLET PO SCH (09:13)
[2016-07-28] MEDS: ALLOPURINOL 300 MG TABLET PO SCH (09:13)
[2016-07-28] MEDS: AmLODIPine BESYLATE 5 MG TABLET PO SCH (09:13)
[2016-07-28 16:02] VITALS: BP 116/73
[2016-07-28] MEDS: DIVALPROEX SODIUM 250 MG DR TABLET PO SCH (20:32)
[2016-07-28] MEDS: OXYBUTYNIN CHLORIDE 5 MG TABLET PO SCH (20:32)
[2016-07-28] MEDS: LORazepam 2 MG TABLET PO PRN (22:31)
[2016-07-29 08:43] VITALS: BP 120/60
[2016-07-29] MEDS: AmLODIPine BESYLATE 5 MG TABLET PO SCH (09:04)
[2016-07-29] MEDS: RisperiDONE 2 MG TABLET PO SCH ×2 (09:04→20:18)
[2016-07-29] MEDS: LORATADINE 10 MG TABLET PO SCH (09:04)
[2016-07-29] MEDS: ALLOPURINOL 300 MG TABLET PO SCH (09:04)
[2016-07-29] MEDS: TERBINAFINE HCL 250 MG TABLET PO SCH (09:04)
[2016-07-29] MEDS: NICOTINE 21 MG/24 HOUR PATCH TD SCH (09:05)
[2016-07-29 16:20] VITALS: BP 129/72
[2016-07-29] MEDS: DIVALPROEX SODIUM 250 MG DR TABLET PO SCH (20:18)
[2016-07-29] MEDS: OXYBUTYNIN CHLORIDE 5 MG TABLET PO SCH (20:18)
[2016-07-29] MEDS: LORazepam 2 MG TABLET PO PRN (21:30)
[2016-07-30 06:21] VITALS: BP 115/70
[2016-07-30] MEDS: LORATADINE 10 MG TABLET PO SCH (09:31)
[2016-07-30] MEDS: ALLOPURINOL 300 MG TABLET PO SCH (09:31)
[2016-07-30] MEDS: AmLODIPine BESYLATE 5 MG TABLET PO SCH (09:31)
[2016-07-30] MEDS: TERBINAFINE HCL 250 MG TABLET PO SCH (09:31)
[2016-07-30] MEDS: RisperiDONE 2 MG TABLET PO SCH ×2 (09:31→20:09)
[2016-07-30] MEDS: NICOTINE 21 MG/24 HOUR PATCH TD SCH (09:32)
[2016-07-30 16:00] VITALS: BP 131/65
[2016-07-30] MEDS: DIVALPROEX SODIUM 250 MG DR TABLET PO SCH (20:09)
[2016-07-30] MEDS: OXYBUTYNIN CHLORIDE 5 MG TABLET PO SCH (20:09)
[2016-07-30] MEDS: LORazepam 2 MG TABLET PO PRN (21:34)
[2016-07-30] MEDS: ZOLPIDEM TARTRATE 10 MG TABLET PO PRN (22:29)
[2016-07-31 08:27] VITALS: BP 122/68
[2016-07-31] MEDS: LORATADINE 10 MG TABLET PO SCH (08:40)
[2016-07-31] MEDS: TERBINAFINE HCL 250 MG TABLET PO SCH (08:40)
[2016-07-31] MEDS: MULTIVITAMINS WITH IRON TABLET PO SCH (08:40)
[2016-07-31] MEDS: ALLOPURINOL 300 MG TABLET PO SCH (08:40)
[2016-07-31] MEDS: AmLODIPine BESYLATE 5 MG TABLET PO SCH (08:40)
[2016-07-31] MEDS: LORazepam 2 MG TABLET PO PRN ×2 (08:40→20:56)
[2016-07-31] MEDS: RisperiDONE 2 MG TABLET PO SCH ×2 (08:40→20:56)
[2016-07-31] MEDS: NICOTINE 21 MG/24 HOUR PATCH TD SCH (08:40)
[2016-07-31 16:07] VITALS: BP 121/73
[2016-07-31] MEDS: HALOPERIDOL 5 MG TABLET PO PRN (20:56)
[2016-07-31] MEDS: LOPERAMIDE HCL 2 MG CAPSULE PO PRN (20:56)
[2016-07-31] MEDS: OXYBUTYNIN CHLORIDE 5 MG TABLET PO SCH (20:56)
[2016-07-31] MEDS: DIVALPROEX SODIUM 250 MG DR TABLET PO SCH (20:56)
[2016-08-01 08:11] VITALS: BP 124/80
[2016-08-01] MEDS: ALLOPURINOL 300 MG TABLET PO SCH (09:37)
[2016-08-01] MEDS: AmLODIPine BESYLATE 5 MG TABLET PO SCH (09:37)
[2016-08-01] MEDS: RisperiDONE 2 MG TABLET PO SCH (09:37)
[2016-08-01] MEDS: LORATADINE 10 MG TABLET PO SCH (09:37)
[2016-08-01] MEDS: TERBINAFINE HCL 250 MG TABLET PO SCH (09:37)
[2016-08-01] MEDS: NICOTINE 21 MG/24 HOUR PATCH TD SCH (09:37)
[2016-08-01] MEDS: MULTIVITAMINS WITH IRON TABLET PO SCH (09:37)
[2016-08-01 11:47] VITALS: BP 120/78
[2016-08-01] MEDS: ACETAMINOPHEN 325 MG TABLET PO PRN (11:47)
[2016-08-01] MEDS: LOPERAMIDE HCL 2 MG CAPSULE PO PRN (11:49)
[2016-08-01] MEDS ORDERED: DIVA250T4 PO (11:50)
[2016-08-01] MEDS ORDERED: RISP2 PO (11:50)
[2016-08-01] MEDS ORDERED: OXYB5 PO (11:51)
[2016-08-01] MEDS ORDERED: TERB250 PO (11:53)
[2016-08-01] MEDS ORDERED: AMLO-511 PO (11:53)
[2016-08-01] MEDS ORDERED: ALLO300 PO (11:53)
[2016-08-01] MEDS ORDERED: LORA10TA7 PO (11:53)
== END 2016-08-01 13:30 | disposition home or self-care (01) | DRG 750 ==
LOC: EMS 16:16 → 3EC 07-09 02:00 → EMS 07-09 12:30 → B3A 07-22 09:45
DX: F25.0 Schizoaffective disorder, bipolar type (principal); E87.0 Hyperosmolality and hypernatremia; J44.9 Chronic obstructive pulmonary disease, unspecified; E11.9 Type 2 diabetes mellitus without complications; I10 Essential (primary) hypertension; E03.9 Hypothyroidism, unspecified; M10.9 Gout, unspecified; B96.20 Unspecified Escherichia coli [E. coli] as the cause of diseases classified elsewhere; J45.909 Unspecified asthma, uncomplicated; F15.90 Other stimulant use, unspecified, uncomplicated; R32 Unspecified urinary incontinence; E86.0 Dehydration; F10.20 Alcohol dependence, uncomplicated; R45.87 Impulsiveness; J30.9 Allergic rhinitis, unspecified; F17.210 Nicotine dependence, cigarettes, uncomplicated; D64.9 Anemia, unspecified; Z59.0 Homelessness; Z88.6 Allergy status to analgesic agent; Z88.8 Allergy status to other drugs, medicaments and biological substances; Z91.013 Allergy to seafood; Z90.49 Acquired absence of other specified parts of digestive tract; Z79.899 Other long term (current) drug therapy; Z91.83 Wandering in diseases classified elsewhere
CPT/HCPCS: 87081; 87086; 96372; 99285; G0480; J1200; J1630; J2060; J2794

== ENCOUNTER 2016-11-04 06:38 | Inpatient (IN) | payer MEDICAID ==
[~2016-11-04] VITALS: Ht 154.9 cm; Wt 78.5 kg
[~2016-11-04 06:38] MED LIST changes: +ALLO300 PO; +AMLO-511 PO; +DIVA250T4 PO; +LORA10TA7 PO; +OXYB5 PO; +RISPC50 IM; +TERB250 PO
[2016-11-04 10:41] VITALS: BP 130/70
[2016-11-04] MEDS ORDERED: PNEUMOCOCCAL VACCINE POLYVALENT 0.5 ML VIAL [PPSV23] IM ONE (10:45)
[2016-11-04] MEDS ORDERED: PERMETHRIN 1% 60 ML LOTION TP ONE (12:30)
[2016-11-04 15:32] LABS: GLUCOSE,POINT OF CARE 87 MG/DL (70-110)
[2016-11-04] MEDS: NYSTATIN 30 GM OINTMENT TP SCH (17:00)
[2016-11-05 04:33] VITALS: BP 127/71
[2016-11-05 08:26] VITALS: BP 149/114
[2016-11-05] MEDS: NYSTATIN 30 GM OINTMENT TP SCH ×2 (09:00→16:35)
[2016-11-05 16:33] VITALS: BP 112/77
[2016-11-05] MEDS: LORazepam 1 MG TABLET PO PRN (16:34)
[2016-11-05] MEDS: HALOPERIDOL 5 MG TABLET PO PRN (16:34)
[2016-11-05] MEDS: RisperiDONE 2 MG TABLET PO SCH (20:24)
[2016-11-05] MEDS: DIVALPROEX SODIUM 250 MG DR TABLET PO SCH (20:24)
[2016-11-05] MEDS: ZOLPIDEM TARTRATE 10 MG TABLET PO PRN (20:24)
[2016-11-06 06:08] VITALS: BP 117/78
[2016-11-06] MEDS: RisperiDONE 2 MG TABLET PO SCH ×2 (09:05→20:31)
[2016-11-06] MEDS: NYSTATIN 30 GM OINTMENT TP SCH ×2 (09:05→16:18)
[2016-11-06 16:07] VITALS: BP 146/96
[2016-11-06] MEDS: LORazepam 1 MG TABLET PO PRN (16:19)
[2016-11-06] MEDS: DIVALPROEX SODIUM 250 MG DR TABLET PO SCH (20:31)
[2016-11-06] MEDS: ZOLPIDEM TARTRATE 10 MG TABLET PO PRN (21:03)
[2016-11-07] MEDS: RisperiDONE 2 MG TABLET PO SCH ×3 (08:46→20:26)
[2016-11-07] MEDS: NYSTATIN 30 GM OINTMENT TP SCH ×2 (08:47→16:29)
[2016-11-07] MEDS ORDERED: LORazepam 2 MG/ML VIAL IM ONE (09:30)
[2016-11-07] MEDS ORDERED: DiphenhydrAMINE HCL 50 MG/ML VIAL IM ONE (09:30)
[2016-11-07] MEDS ORDERED: HALOPERIDOL LACTATE 5 MG/ML VIAL IM ONE (09:30)
[2016-11-07 11:00] VITALS: BP 151/77
[2016-11-07] MEDS: ZOLPIDEM TARTRATE 10 MG TABLET PO PRN (20:26)
[2016-11-07] MEDS: DIVALPROEX SODIUM 250 MG DR TABLET PO SCH (20:26)
[2016-11-07] MEDS: OXYBUTYNIN CHLORIDE 5 MG TABLET PO SCH (20:43)
[2016-11-08 08:22] LABS: BASOPHILS % (AUTO) 0.4 % (0.0-2.0); HEMATOCRIT 37.1 % (36-46); HEMOGLOBIN 12.4 g/dL (12.0-16.0); LYMPHOCYTES % (AUTO) 33.4 % (22.0-44.0); MEAN CORPUSCULAR HEMOGLOBIN 29.8 pg (26.0-34.0); MEAN CORPUSCULAR HGB CONC 33.4 G/dL (31.0-37.0); MEAN CORPUSCULAR VOLUME 89 fL (80-100); MONOCYTES # (AUTO) 0.4 K/uL (0.1-1.0); MONOCYTES % (AUTO) 6.9 % (2.0-9.0); NEUTROPHILS # (AUTO) 3.5 K/uL (1.8-7.7); NEUTROPHILS % (AUTO) 57.3 % (40.0-70.0); PLATELET COUNT (AUTO) 258 K/uL (150-450); RED BLOOD CELL COUNT(AUTO) 4.16 MIL/uL (4.00-5.20); RED CELL DISTRIBUTION WIDTH 14.2 % (11.5-14.5)
[2016-11-08 08:28] VITALS: BP 148/81
[2016-11-08 08:45] LABS: ALANINE AMINOTRANSFERASE 22 U/L (12-78); ALBUMIN 3.1 g/dL (3.4-5.0); ANION GAP 9 mmol/L (8-16); ASPARTATE AMINOTRANSFERASE 12 U/L (15-37); BILIRUBIN,TOTAL 0.4 mg/dL (0.1-1.0); CALCIUM, TOTAL 9.2 mg/dL (8.8-10.5); CARBON DIOXIDE 26 mmol/L (22-29); CHLORIDE 106 mmol/L (98-107); CREATININE 0.53 mg/dL (0.60-1.30); GLOMERULAR FILTR. RATE CALC > 60 mL/min (>60); POTASSIUM 4.6 mmol/L (3.5-5.1); SODIUM SERUM 141 mmol/L (136-145); TOTAL PROTEIN, SERUM 6.3 g/dL (6.4-8.2); UREA NITROGEN, BLOOD 14 mg/dL (7-18)
[2016-11-08] MEDS: RisperiDONE 2 MG TABLET PO SCH ×2 (09:10→20:01)
[2016-11-08] MEDS: ALLOPURINOL 100 MG TABLET PO SCH (09:10)
[2016-11-08] MEDS: AmLODIPine BESYLATE 10 MG TABLET PO SCH (09:10)
[2016-11-08] MEDS: NYSTATIN 30 GM OINTMENT TP SCH ×2 (09:19→16:01)
[2016-11-08] MEDS: LOPERAMIDE HCL 2 MG CAPSULE PO PRN (10:55)
[2016-11-08] MEDS ORDERED: DiphenhydrAMINE HCL 50 MG/ML VIAL IM ONE (13:00)
[2016-11-08] MEDS ORDERED: LORazepam 2 MG/ML VIAL IM ONE (13:00)
[2016-11-08] MEDS ORDERED: HALOPERIDOL LACTATE 5 MG/ML VIAL IM ONE (13:00)
[2016-11-08] MEDS ORDERED: RisperiDONE MICROSPHERES 50 MG/2 ML SYRINGE IM SCH (16:00)
[2016-11-08 16:05] VITALS: BP 135/83
[2016-11-08] MEDS ORDERED: LACTULOSE 20 GM/30 ML SOLUTION UDCUP PO ONE (18:00)
[2016-11-08] MEDS: DIVALPROEX SODIUM 250 MG DR TABLET PO SCH (20:01)
[2016-11-08] MEDS: OXYBUTYNIN CHLORIDE 5 MG TABLET PO SCH (20:01)
[2016-11-09 07:19] VITALS: BP 135/77
[2016-11-09] MEDS: ALLOPURINOL 100 MG TABLET PO SCH (08:29)
[2016-11-09] MEDS: AmLODIPine BESYLATE 10 MG TABLET PO SCH (08:29)
[2016-11-09] MEDS: RisperiDONE 2 MG TABLET PO SCH ×2 (08:29→20:06)
[2016-11-09] MEDS: NYSTATIN 30 GM OINTMENT TP SCH ×2 (08:29→16:34)
[2016-11-09 09:32] VITALS: BP 123/75
[2016-11-09 13:11] LABS: HEPATITIS Bs ANTIGEN SCREEN P Negative (Negative); HEPATITIS C AB SCREEN <0.1 s/co ratio (0.0-0.9)
[2016-11-09] MEDS ORDERED: LORazepam 2 MG/ML VIAL ONE (14:25)
[2016-11-09] MEDS ORDERED: HALOPERIDOL LACTATE 5 MG/ML VIAL IM ONE (14:30)
[2016-11-09] MEDS ORDERED: DiphenhydrAMINE HCL 50 MG/ML VIAL IM ONE (14:30)
[2016-11-09] MEDS ORDERED: LORazepam 2 MG/ML VIAL IM ONE (14:30)
[2016-11-09 16:03] VITALS: BP 120/62
[2016-11-09] MEDS: DIVALPROEX SODIUM 250 MG DR TABLET PO SCH (20:05)
[2016-11-09] MEDS: OXYBUTYNIN CHLORIDE 5 MG TABLET PO SCH (20:08)
[2016-11-10 06:45] VITALS: BP 135/69
[2016-11-10] MEDS: HALOPERIDOL 5 MG TABLET PO PRN (09:32)
[2016-11-10] MEDS: ALLOPURINOL 100 MG TABLET PO SCH (09:32)
[2016-11-10] MEDS: LORazepam 1 MG TABLET PO PRN ×2 (09:32→17:56)
[2016-11-10] MEDS: RisperiDONE 2 MG TABLET PO SCH ×2 (09:32→20:07)
[2016-11-10] MEDS: AmLODIPine BESYLATE 10 MG TABLET PO SCH (09:32)
[2016-11-10] MEDS: NYSTATIN 30 GM OINTMENT TP SCH ×2 (09:54→16:06)
[2016-11-10 16:20] VITALS: BP 138/80
[2016-11-10] MEDS: LOPERAMIDE HCL 2 MG CAPSULE PO PRN (17:55)
[2016-11-10] MEDS: DIVALPROEX SODIUM 250 MG DR TABLET PO SCH (20:07)
[2016-11-10] MEDS: OXYBUTYNIN CHLORIDE 5 MG TABLET PO SCH (20:07)
[2016-11-11 06:38] VITALS: BP 131/76
[2016-11-11 08:40] VITALS: BP 130/75
[2016-11-11] MEDS: AmLODIPine BESYLATE 10 MG TABLET PO SCH (08:46)
[2016-11-11] MEDS: RisperiDONE 2 MG TABLET PO SCH ×2 (08:46→20:03)
[2016-11-11] MEDS: NYSTATIN 30 GM OINTMENT TP SCH ×2 (08:46→16:42)
[2016-11-11] MEDS: ALLOPURINOL 100 MG TABLET PO SCH (08:46)
[2016-11-11 16:03] VITALS: BP 122/69
[2016-11-11] MEDS: LORazepam 1 MG TABLET PO PRN (19:51)
[2016-11-11] MEDS: OXYBUTYNIN CHLORIDE 5 MG TABLET PO SCH (20:03)
[2016-11-11] MEDS: DIVALPROEX SODIUM 250 MG DR TABLET PO SCH (20:03)
[2016-11-12 06:43] VITALS: BP 130/81
[2016-11-12] MEDS: NYSTATIN 30 GM OINTMENT TP SCH ×2 (09:19→16:32)
[2016-11-12] MEDS: ALLOPURINOL 100 MG TABLET PO SCH (09:19)
[2016-11-12] MEDS: AmLODIPine BESYLATE 10 MG TABLET PO SCH (09:19)
[2016-11-12] MEDS: RisperiDONE 2 MG TABLET PO SCH ×2 (09:19→20:10)
[2016-11-12] MEDS: LACTULOSE 20 GM/30 ML SOLUTION UDCUP PO SCH (09:20)
[2016-11-12 16:07] VITALS: BP 138/68
[2016-11-12 17:41] VITALS: BP 129/72
[2016-11-12] MEDS: ACETAMINOPHEN 325 MG TABLET PO PRN (17:44)
[2016-11-12] MEDS ORDERED: IBUPROFEN 600 MG TABLET PO PRN (17:45)
[2016-11-12] MEDS: OXYBUTYNIN CHLORIDE 5 MG TABLET PO SCH (20:10)
[2016-11-12] MEDS: DIVALPROEX SODIUM 250 MG DR TABLET PO SCH (20:10)
[2016-11-13] VITALS: BP 122/71
[2016-11-13] MEDS: ACETAMINOPHEN 325 MG TABLET PO PRN ×3 (00:03→21:40)
[2016-11-13 08:30] VITALS: BP 108/86
[2016-11-13] MEDS: AmLODIPine BESYLATE 10 MG TABLET PO SCH (09:18)
[2016-11-13] MEDS: ALLOPURINOL 100 MG TABLET PO SCH (09:18)
[2016-11-13] MEDS: RisperiDONE 2 MG TABLET PO SCH ×2 (09:18→20:55)
[2016-11-13] MEDS: LACTULOSE 20 GM/30 ML SOLUTION UDCUP PO SCH (09:18)
[2016-11-13] MEDS: NYSTATIN 30 GM OINTMENT TP SCH ×2 (09:18→16:21)
[2016-11-13 10:00] VITALS: BP 116/82
[2016-11-13 16:05] VITALS: BP 136/74
[2016-11-13] MEDS: OXYBUTYNIN CHLORIDE 5 MG TABLET PO SCH (20:55)
[2016-11-13] MEDS: DIVALPROEX SODIUM 250 MG DR TABLET PO SCH (20:55)
[2016-11-14 00:57] VITALS: BP 126/77
[2016-11-14 09:00] VITALS: BP 118/78
[2016-11-14] MEDS: ALLOPURINOL 100 MG TABLET PO SCH (09:12)
[2016-11-14] MEDS: RisperiDONE 2 MG TABLET PO SCH ×2 (09:12→20:43)
[2016-11-14] MEDS: AmLODIPine BESYLATE 10 MG TABLET PO SCH (09:12)
[2016-11-14] MEDS: NYSTATIN 30 GM OINTMENT TP SCH ×2 (09:13→16:26)
[2016-11-14] MEDS: LACTULOSE 20 GM/30 ML SOLUTION UDCUP PO SCH (09:23)
[2016-11-14 12:15] VITALS: BP 114/78
[2016-11-14] MEDS: LOPERAMIDE HCL 2 MG CAPSULE PO PRN (12:27)
[2016-11-14] MEDS: ACETAMINOPHEN 325 MG TABLET PO PRN ×2 (12:28→18:40)
[2016-11-14 16:00] VITALS: BP 118/68
[2016-11-14] MEDS: OXYBUTYNIN CHLORIDE 5 MG TABLET PO SCH (20:43)
[2016-11-14] MEDS: DIVALPROEX SODIUM 250 MG DR TABLET PO SCH (20:43)
[2016-11-15 07:04] VITALS: BP 115/78
[2016-11-15 08:14] VITALS: BP 124/66
[2016-11-15] MEDS: RisperiDONE 2 MG TABLET PO SCH ×2 (09:05→20:28)
[2016-11-15] MEDS: NYSTATIN 30 GM OINTMENT TP SCH ×2 (09:05→17:19)
[2016-11-15] MEDS: LACTULOSE 20 GM/30 ML SOLUTION UDCUP PO SCH (09:05)
[2016-11-15] MEDS: AmLODIPine BESYLATE 10 MG TABLET PO SCH (09:05)
[2016-11-15] MEDS: ALLOPURINOL 100 MG TABLET PO SCH (09:05)
[2016-11-15] MEDS: LOPERAMIDE HCL 2 MG CAPSULE PO PRN (13:38)
[2016-11-15 16:05] VITALS: BP 142/65
[2016-11-15] MEDS: LORazepam 1 MG TABLET PO PRN (16:15)
[2016-11-15] MEDS: HALOPERIDOL 5 MG TABLET PO PRN (16:32)
[2016-11-15] MEDS: OXYBUTYNIN CHLORIDE 5 MG TABLET PO SCH (20:28)
[2016-11-15] MEDS: DIVALPROEX SODIUM 250 MG DR TABLET PO SCH (20:28)
[2016-11-15] MEDS: ZOLPIDEM TARTRATE 10 MG TABLET PO PRN (21:00)
[2016-11-16 06:02] VITALS: BP 133/67
[2016-11-16 08:28] VITALS: BP 109/66
[2016-11-16] MEDS: ALLOPURINOL 100 MG TABLET PO SCH (09:00)
[2016-11-16] MEDS: NYSTATIN 30 GM OINTMENT TP SCH (09:00)
[2016-11-16] MEDS ORDERED: LACTULOSE 20 GM/30 ML SOLUTION UDCUP PO SCH (09:00)
[2016-11-16] MEDS: RisperiDONE 2 MG TABLET PO SCH (09:00)
[2016-11-16] MEDS: AmLODIPine BESYLATE 10 MG TABLET PO SCH (09:00)
[2016-11-16] MEDS: LOPERAMIDE HCL 2 MG CAPSULE PO PRN (10:21)
[2016-11-17] MEDS ORDERED: LACTULOSE 20 GM/30 ML SOLUTION UDCUP PO SCH (09:00)
== END 2016-11-16 13:45 | disposition home or self-care (01) | DRG 750 ==
LOC: B3A 07:00 → EDSTATUS 08:56 → B3A 11-06 19:43
PROVIDERS: ADMIT Psychiatry & Neurology Psychiatry; ATTEND Psychiatry & Neurology Psychiatry
DX: F25.9 Schizoaffective disorder, unspecified (principal); Z59.0 Homelessness; I10 Essential (primary) hypertension; F17.200 Nicotine dependence, unspecified, uncomplicated; F19.90 Other psychoactive substance use, unspecified, uncomplicated; J30.9 Allergic rhinitis, unspecified; M10.9 Gout, unspecified; D64.9 Anemia, unspecified; R32 Unspecified urinary incontinence; R45.1 Restlessness and agitation; Z90.49 Acquired absence of other specified parts of digestive tract; Z72.89 Other problems related to lifestyle; Z28.21 Immunization not carried out because of patient refusal; Z88.6 Allergy status to analgesic agent; Z91.013 Allergy to seafood
CPT/HCPCS: 80074; 82248; 82962; J1200; J1630; J2060; J2794

== ENCOUNTER 2017-01-17 10:07 | Inpatient (IN) | payer MEDICAID ==
[~2017-01-17 10:07] MED LIST changes: -LORA10TA7 PO; -RISP2 PO; -TERB250 PO
[2017-01-17 10:30] VITALS: BP 125/92
[2017-01-17] MEDS ORDERED: LORazepam 2 MG TABLET PO PRN (10:45)
[2017-01-17] MEDS ORDERED: ZOLPIDEM TARTRATE 10 MG TABLET PO PRN (10:45)
[2017-01-17] MEDS ORDERED: PNEUMOCOCCAL VACCINE POLYVALENT 0.5 ML VIAL [PPSV23] IM ONE (11:15)
[2017-01-17] MEDS ORDERED: LORazepam 2 MG/ML VIAL ONE (12:11)
[2017-01-17] MEDS ORDERED: DiphenhydrAMINE HCL 50 MG/ML VIAL ONE (12:11)
[2017-01-17] MEDS ORDERED: HALOPERIDOL LACTATE 5 MG/ML VIAL ONE (12:11)
[2017-01-17] MEDS ORDERED: HALOPERIDOL LACTATE 5 MG/ML VIAL IM ONE (12:30)
[2017-01-17] MEDS ORDERED: DiphenhydrAMINE HCL 50 MG/ML VIAL IM ONE (12:30)
[2017-01-17] MEDS ORDERED: LORazepam 2 MG/ML VIAL IM ONE (12:30)
[2017-01-17 16:21] VITALS: BP 130/94
[2017-01-17] MEDS: OXYBUTYNIN CHLORIDE 5 MG TABLET PO SCH (20:41)
[2017-01-18] MEDS ORDERED: INFLUENZA VIRUS VACCINE QVS 2017-18 (3YR+)/PF 60 MCG/0.5 ML SYRINGE IM ONE (01:45)
[2017-01-18 08:19] LABS: BASOPHILS # (AUTO) 0.03 K/uL (0.00-0.20); BASOPHILS % (AUTO) 0.5 % (0.0-2.0); EOSINOPHILS # (AUTO) 0.17 K/uL (0.00-0.70); EOSINOPHILS % (AUTO) 2.73 % (1.0-6.0); HEMATOCRIT 36.8 % (36-46); LYMPHOCYTES # (AUTO) 1.5 K/uL (1.0-4.8); LYMPHOCYTES % (AUTO) 24.2 % (22.0-44.0); MEAN CORPUSCULAR HGB CONC 32.6 G/dL (31.0-37.0); MEAN CORPUSCULAR VOLUME 92 fL (80-100); MONOCYTES # (AUTO) 0.7 K/uL (0.1-1.0); NEUTROPHILS # (AUTO) 3.8 K/uL (1.8-7.7); NEUTROPHILS % (AUTO) 61.6 % (40.0-70.0); PLATELET COUNT (AUTO) 215 K/uL (150-450); RED BLOOD CELL COUNT(AUTO) 4.01 MIL/uL (4.00-5.20); RED CELL DISTRIBUTION WIDTH 15.4 % (11.5-14.5); WHITE BLOOD COUNT (AUTO) 6.1 K/uL (4.5-11.0)
[2017-01-18 08:30] VITALS: BP 115/59
[2017-01-18] MEDS: AmLODIPine BESYLATE 5 MG TABLET PO SCH (08:31)
[2017-01-18] MEDS: DIVALPROEX SODIUM 500 MG DR TABLET PO SCH ×2 (08:31→16:04)
[2017-01-18] MEDS: RisperiDONE 3 MG TABLET PO SCH ×2 (08:31→16:51)
[2017-01-18] MEDS: DIVALPROEX SODIUM 250 MG DR TABLET PO SCH ×2 (08:31→16:04)
[2017-01-18] MEDS: ALLOPURINOL 100 MG TABLET PO SCH (08:31)
[2017-01-18 08:47] LABS: HEMOGLOBIN A1C 5.9 % (4.5-6.2)
[2017-01-18 08:49] LABS: ALANINE AMINOTRANSFERASE 28 U/L (12-78); ANION GAP 6 mmol/L (8-16); ASPARTATE AMINOTRANSFERASE 17 U/L (15-37); BILIRUBIN,TOTAL 0.3 mg/dL (0.1-1.0); CALCIUM, TOTAL 8.5 mg/dL (8.8-10.5); CARBON DIOXIDE 30 mmol/L (22-29); CHLORIDE 109 mmol/L (98-107); CHOL/HDL RATIO 4.4 (3.9-5.7); CREATININE 0.53 mg/dL (0.60-1.30); GLOMERULAR FILTR. RATE CALC > 60 mL/min (>60); POTASSIUM 4.1 mmol/L (3.5-5.1); SODIUM SERUM 145 mmol/L (136-145); THYROID STIMULATING HORMONE 1.31 uIU/mL (0.36-3.74); TOTAL PROTEIN, SERUM 5.7 g/dL (6.4-8.2); UREA NITROGEN, BLOOD 9 mg/dL (7-18)
[2017-01-18] MEDS ORDERED: IBUPROFEN 600 MG TABLET PO PRN (10:15)
[2017-01-18] MEDS: LOPERAMIDE HCL 2 MG CAPSULE PO PRN (11:50)
[2017-01-18 16:17] VITALS: BP 143/82
[2017-01-18] MEDS ORDERED: ALLO100T PO (18:14)
[2017-01-18] MEDS: OXYBUTYNIN CHLORIDE 5 MG TABLET PO SCH (20:09)
[2017-01-19 01:55] VITALS: BP 137/80
[2017-01-19 08:22] VITALS: BP 102/53
[2017-01-19 08:36] LABS: APPEARANCE,URINE CLOUDY (CLEAR); GLUCOSE, URINE (UA) NEGATIVE (NEGATIVE); KETONES,URINE NEGATIVE (NEGATIVE); LEUKOCYTE ESTERASE ,URINE LARGE (NEGATIVE); OCCULT BLOOD,URINE TRACE (NEGATIVE); PROTEIN,URINE NEGATIVE (NEGATIVE)
[2017-01-19] MEDS: RisperiDONE 3 MG TABLET PO SCH ×2 (09:07→16:34)
[2017-01-19] MEDS: NICOTINE 21 MG/24 HOUR PATCH TD SCH (09:07)
[2017-01-19] MEDS: DIVALPROEX SODIUM 250 MG DR TABLET PO SCH ×2 (09:07→16:34)
[2017-01-19] MEDS: ALLOPURINOL 100 MG TABLET PO SCH (09:07)
[2017-01-19] MEDS: AmLODIPine BESYLATE 5 MG TABLET PO SCH (09:07)
[2017-01-19] MEDS: DIVALPROEX SODIUM 500 MG DR TABLET PO SCH ×2 (09:08→16:34)
[2017-01-19 09:50] LABS: ADD UA MICROSCOPIC YES
[2017-01-19 09:51] LABS: RBC,URINE 0-2 /HPF (0-2)
[2017-01-19 09:52] LABS: SQUAMOUS EPITHELIAL CELL,UR Many /LPF (None Seen)
[2017-01-19] MEDS: LOPERAMIDE HCL 2 MG CAPSULE PO PRN (14:22)
[2017-01-19 14:23] VITALS: BP 122/77
[2017-01-19] MEDS: ACETAMINOPHEN 325 MG TABLET PO PRN (14:23)
[2017-01-19 16:13] VITALS: BP 126/70
[2017-01-19] MEDS: OXYBUTYNIN CHLORIDE 5 MG TABLET PO SCH (20:49)
[2017-01-20 06:52] VITALS: BP 137/63
[2017-01-20 08:24] VITALS: BP 129/62
[2017-01-20] MEDS: DIVALPROEX SODIUM 250 MG DR TABLET PO SCH ×2 (08:30→16:37)
[2017-01-20] MEDS: AmLODIPine BESYLATE 5 MG TABLET PO SCH (08:30)
[2017-01-20] MEDS: RisperiDONE 3 MG TABLET PO SCH ×2 (08:30→17:05)
[2017-01-20] MEDS: NICOTINE 21 MG/24 HOUR PATCH TD SCH (08:30)
[2017-01-20] MEDS: ALLOPURINOL 100 MG TABLET PO SCH (08:30)
[2017-01-20] MEDS: DIVALPROEX SODIUM 500 MG DR TABLET PO SCH ×2 (08:30→16:37)
[2017-01-20 16:05] VITALS: BP 121/63
[2017-01-20] MEDS: ACETAMINOPHEN 325 MG TABLET PO PRN (18:12)
[2017-01-20 18:13] VITALS: BP 121/67
[2017-01-20] MEDS: OXYBUTYNIN CHLORIDE 5 MG TABLET PO SCH (20:45)
[2017-01-21 08:17] VITALS: BP 127/69
[2017-01-21] MEDS: ALLOPURINOL 100 MG TABLET PO SCH (10:16)
[2017-01-21] MEDS: DIVALPROEX SODIUM 250 MG DR TABLET PO SCH ×2 (10:17→16:38)
[2017-01-21] MEDS: AmLODIPine BESYLATE 5 MG TABLET PO SCH (10:17)
[2017-01-21] MEDS: RisperiDONE 3 MG TABLET PO SCH ×2 (10:17→16:38)
[2017-01-21] MEDS: NICOTINE 21 MG/24 HOUR PATCH TD SCH (10:17)
[2017-01-21] MEDS: DIVALPROEX SODIUM 500 MG DR TABLET PO SCH ×2 (10:21→16:38)
[2017-01-21] MEDS: LOPERAMIDE HCL 2 MG CAPSULE PO PRN ×2 (10:50→16:37)
[2017-01-21 16:18] VITALS: BP 136/73
[2017-01-21] MEDS: OXYBUTYNIN CHLORIDE 5 MG TABLET PO SCH (20:17)
[2017-01-22 06:44] VITALS: BP 134/72
[2017-01-22 08:00] VITALS: BP 124/69
[2017-01-22] MEDS: RisperiDONE 3 MG TABLET PO SCH ×2 (09:58→16:13)
[2017-01-22] MEDS: DIVALPROEX SODIUM 250 MG DR TABLET PO SCH ×2 (09:58→16:13)
[2017-01-22] MEDS: AmLODIPine BESYLATE 5 MG TABLET PO SCH (09:58)
[2017-01-22] MEDS: NICOTINE 21 MG/24 HOUR PATCH TD SCH (09:58)
[2017-01-22] MEDS: ALLOPURINOL 100 MG TABLET PO SCH (09:58)
[2017-01-22] MEDS: DIVALPROEX SODIUM 500 MG DR TABLET PO SCH ×2 (10:04→16:13)
[2017-01-22 16:16] VITALS: BP 148/78
[2017-01-22] MEDS: OXYBUTYNIN CHLORIDE 5 MG TABLET PO SCH (20:23)
[2017-01-22] MEDS: CHOLESTYRAMINE/ASPARTAME 4 GM POWDER PACKET PO SCH (21:29)
[2017-01-23] MEDS: CHOLESTYRAMINE/ASPARTAME 4 GM POWDER PACKET PO SCH ×3 (06:30→17:05)
[2017-01-23 08:33] VITALS: BP 132/68
[2017-01-23] MEDS: MULTIVITAMINS, THERAPEUTIC TABLET PO SCH (08:54)
[2017-01-23] MEDS: DIVALPROEX SODIUM 500 MG DR TABLET PO SCH ×2 (08:54→17:05)
[2017-01-23] MEDS: DIVALPROEX SODIUM 250 MG DR TABLET PO SCH ×2 (08:54→17:05)
[2017-01-23] MEDS: RisperiDONE 3 MG TABLET PO SCH ×2 (08:54→17:05)
[2017-01-23] MEDS: AmLODIPine BESYLATE 5 MG TABLET PO SCH (08:54)
[2017-01-23] MEDS: FERROUS SULFATE 325 MG EC TABLET PO SCH (08:54)
[2017-01-23] MEDS: ALLOPURINOL 100 MG TABLET PO SCH (08:55)
[2017-01-23] MEDS: NICOTINE 21 MG/24 HOUR PATCH TD SCH (08:55)
[2017-01-23] MEDS: TERBINAFINE HCL 250 MG TABLET PO SCH (08:55)
[2017-01-23] MEDS: LOPERAMIDE HCL 2 MG CAPSULE PO PRN (12:11)
[2017-01-23 16:00] VITALS: BP 133/74
[2017-01-23] MEDS: OXYBUTYNIN CHLORIDE 5 MG TABLET PO SCH (20:35)
[2017-01-24] MEDS: CHOLESTYRAMINE/ASPARTAME 4 GM POWDER PACKET PO SCH ×4 (06:10→17:38)
[2017-01-24 08:42] VITALS: BP 137/65
[2017-01-24] MEDS: FERROUS SULFATE 325 MG EC TABLET PO SCH (10:27)
[2017-01-24] MEDS: DIVALPROEX SODIUM 500 MG DR TABLET PO SCH ×2 (10:27→17:39)
[2017-01-24] MEDS: MULTIVITAMINS, THERAPEUTIC TABLET PO SCH (10:27)
[2017-01-24] MEDS: AmLODIPine BESYLATE 5 MG TABLET PO SCH (10:28)
[2017-01-24] MEDS: RisperiDONE 3 MG TABLET PO SCH ×2 (10:28→17:39)
[2017-01-24] MEDS: DIVALPROEX SODIUM 250 MG DR TABLET PO SCH ×2 (10:28→17:00)
[2017-01-24] MEDS: NICOTINE 21 MG/24 HOUR PATCH TD SCH (10:29)
[2017-01-24] MEDS: ALLOPURINOL 100 MG TABLET PO SCH (10:29)
[2017-01-24] MEDS: TERBINAFINE HCL 250 MG TABLET PO SCH (10:29)
[2017-01-24] MEDS: LOPERAMIDE HCL 2 MG CAPSULE PO PRN (10:30)
[2017-01-24] MEDS: FAMOTIDINE 20 MG TABLET PO SCH (17:39)
[2017-01-24 18:08] VITALS: BP 121/74
[2017-01-24] MEDS: OXYBUTYNIN CHLORIDE 5 MG TABLET PO SCH (21:38)
[2017-01-25 04:23] VITALS: BP 136/72
[2017-01-25] MEDS: CHOLESTYRAMINE/ASPARTAME 4 GM POWDER PACKET PO SCH ×3 (06:40→16:47)
[2017-01-25 08:20] VITALS: BP 122/76
[2017-01-25] MEDS: DIVALPROEX SODIUM 250 MG DR TABLET PO SCH ×4 (09:00→17:00)
[2017-01-25] MEDS: LOPERAMIDE HCL 2 MG CAPSULE PO PRN (09:35)
[2017-01-25] MEDS: RisperiDONE 3 MG TABLET PO SCH ×2 (09:35→16:47)
[2017-01-25] MEDS: FERROUS SULFATE 325 MG EC TABLET PO SCH (09:35)
[2017-01-25] MEDS: MULTIVITAMINS, THERAPEUTIC TABLET PO SCH (09:36)
[2017-01-25] MEDS: ALLOPURINOL 100 MG TABLET PO SCH (09:36)
[2017-01-25] MEDS: AmLODIPine BESYLATE 5 MG TABLET PO SCH (09:37)
[2017-01-25] MEDS: FAMOTIDINE 20 MG TABLET PO SCH ×2 (09:37→16:47)
[2017-01-25] MEDS: NICOTINE 21 MG/24 HOUR PATCH TD SCH (09:37)
[2017-01-25] MEDS: TERBINAFINE HCL 250 MG TABLET PO SCH (09:37)
[2017-01-25] MEDS: DIVALPROEX SODIUM 500 MG DR TABLET PO SCH ×2 (09:43→16:47)
[2017-01-25 16:00] VITALS: BP 131/61
[2017-01-25] MEDS: OXYBUTYNIN CHLORIDE 5 MG TABLET PO SCH (20:11)
[2017-01-26] MEDS: CHOLESTYRAMINE/ASPARTAME 4 GM POWDER PACKET PO SCH ×3 (06:48→16:48)
[2017-01-26 08:15] VITALS: BP 140/67
[2017-01-26] MEDS: RisperiDONE 3 MG TABLET PO SCH ×2 (08:38→16:47)
[2017-01-26] MEDS: FERROUS SULFATE 325 MG EC TABLET PO SCH (08:38)
[2017-01-26] MEDS: MULTIVITAMINS, THERAPEUTIC TABLET PO SCH (08:38)
[2017-01-26] MEDS: AmLODIPine BESYLATE 5 MG TABLET PO SCH (08:38)
[2017-01-26] MEDS: DIVALPROEX SODIUM 500 MG DR TABLET PO SCH ×3 (08:38→16:47)
[2017-01-26] MEDS: FAMOTIDINE 20 MG TABLET PO SCH ×2 (08:39→16:49)
[2017-01-26] MEDS: DIVALPROEX SODIUM 250 MG DR TABLET PO SCH ×2 (08:39→16:49)
[2017-01-26] MEDS: TERBINAFINE HCL 250 MG TABLET PO SCH (08:39)
[2017-01-26] MEDS: ALLOPURINOL 100 MG TABLET PO SCH (08:39)
[2017-01-26] MEDS: NICOTINE 21 MG/24 HOUR PATCH TD SCH (08:40)
[2017-01-26 15:59] VITALS: BP 116/55
[2017-01-26 16:00] VITALS: BP 119/62
[2017-01-26] MEDS: OXYBUTYNIN CHLORIDE 5 MG TABLET PO SCH (20:03)
[2017-01-27] MEDS: CHOLESTYRAMINE/ASPARTAME 4 GM POWDER PACKET PO SCH ×3 (06:30→16:07)
[2017-01-27 08:05] VITALS: BP 132/80
[2017-01-27] MEDS: RisperiDONE 3 MG TABLET PO SCH ×2 (08:42→16:07)
[2017-01-27] MEDS: AmLODIPine BESYLATE 5 MG TABLET PO SCH (08:42)
[2017-01-27] MEDS: MULTIVITAMINS, THERAPEUTIC TABLET PO SCH (08:42)
[2017-01-27] MEDS: DIVALPROEX SODIUM 250 MG DR TABLET PO SCH ×2 (08:42→16:07)
[2017-01-27] MEDS: FERROUS SULFATE 325 MG EC TABLET PO SCH (08:42)
[2017-01-27] MEDS: DIVALPROEX SODIUM 500 MG DR TABLET PO SCH ×3 (08:44→16:07)
[2017-01-27] MEDS: TERBINAFINE HCL 250 MG TABLET PO SCH (08:44)
[2017-01-27] MEDS: FAMOTIDINE 20 MG TABLET PO SCH ×2 (08:44→16:07)
[2017-01-27] MEDS: ALLOPURINOL 100 MG TABLET PO SCH (08:44)
[2017-01-27] MEDS: NICOTINE 21 MG/24 HOUR PATCH TD SCH (08:46)
[2017-01-27 16:06] VITALS: BP 127/68
[2017-01-27] MEDS: OXYBUTYNIN CHLORIDE 5 MG TABLET PO SCH (20:11)
[2017-01-28] MEDS: CHOLESTYRAMINE/ASPARTAME 4 GM POWDER PACKET PO SCH ×3 (06:25→16:26)
[2017-01-28 07:21] VITALS: BP 128/72
[2017-01-28 08:22] VITALS: BP 137/85
[2017-01-28] MEDS: NICOTINE 21 MG/24 HOUR PATCH TD SCH (09:23)
[2017-01-28] MEDS: AmLODIPine BESYLATE 5 MG TABLET PO SCH (09:23)
[2017-01-28] MEDS: DIVALPROEX SODIUM 250 MG DR TABLET PO SCH ×2 (09:23→17:00)
[2017-01-28] MEDS: RisperiDONE 3 MG TABLET PO SCH ×2 (09:24→16:57)
[2017-01-28] MEDS: ALLOPURINOL 100 MG TABLET PO SCH (09:24)
[2017-01-28] MEDS: TERBINAFINE HCL 250 MG TABLET PO SCH (09:24)
[2017-01-28] MEDS: FAMOTIDINE 20 MG TABLET PO SCH ×2 (09:24→16:57)
[2017-01-28] MEDS: FERROUS SULFATE 325 MG EC TABLET PO SCH (09:24)
[2017-01-28] MEDS: MULTIVITAMINS, THERAPEUTIC TABLET PO SCH (09:24)
[2017-01-28] MEDS: DIVALPROEX SODIUM 500 MG DR TABLET PO SCH ×2 (09:29→17:00)
[2017-01-28 16:26] VITALS: BP 135/85
[2017-01-28] MEDS: ACETAMINOPHEN 325 MG TABLET PO PRN (16:26)
[2017-01-28] MEDS: OXYBUTYNIN CHLORIDE 5 MG TABLET PO SCH (20:35)
[2017-01-29 03:30] VITALS: BP 139/94
[2017-01-29] MEDS: CHOLESTYRAMINE/ASPARTAME 4 GM POWDER PACKET PO SCH ×3 (06:26→16:30)
[2017-01-29 08:36] VITALS: BP 147/68
[2017-01-29] MEDS: FAMOTIDINE 20 MG TABLET PO SCH ×2 (08:37→17:06)
[2017-01-29] MEDS: DIVALPROEX SODIUM 500 MG DR TABLET PO SCH ×2 (08:38→17:00)
[2017-01-29] MEDS: DIVALPROEX SODIUM 250 MG DR TABLET PO SCH ×2 (08:38→17:00)
[2017-01-29] MEDS: AmLODIPine BESYLATE 5 MG TABLET PO SCH (08:38)
[2017-01-29] MEDS: FERROUS SULFATE 325 MG EC TABLET PO SCH (08:38)
[2017-01-29] MEDS: ALLOPURINOL 100 MG TABLET PO SCH (08:38)
[2017-01-29] MEDS: MULTIVITAMINS, THERAPEUTIC TABLET PO SCH (08:39)
[2017-01-29] MEDS: TERBINAFINE HCL 250 MG TABLET PO SCH (08:39)
[2017-01-29] MEDS: RisperiDONE 3 MG TABLET PO SCH ×2 (08:39→17:06)
[2017-01-29] MEDS: NICOTINE 21 MG/24 HOUR PATCH TD SCH (08:39)
[2017-01-29 16:00] VITALS: BP 127/62
[2017-01-29] MEDS: OXYBUTYNIN CHLORIDE 5 MG TABLET PO SCH (20:10)
[2017-01-29 20:39] VITALS: BP 124/70
[2017-01-29] MEDS: ACETAMINOPHEN 325 MG TABLET PO PRN (20:41)
[2017-01-30] MEDS: CHOLESTYRAMINE/ASPARTAME 4 GM POWDER PACKET PO SCH ×3 (06:30→16:30)
[2017-01-30 08:47] VITALS: BP 119/59
[2017-01-30] MEDS: NICOTINE 21 MG/24 HOUR PATCH TD SCH (08:57)
[2017-01-30] MEDS: MULTIVITAMINS, THERAPEUTIC TABLET PO SCH (08:58)
[2017-01-30] MEDS: AmLODIPine BESYLATE 5 MG TABLET PO SCH (08:58)
[2017-01-30] MEDS: FERROUS SULFATE 325 MG EC TABLET PO SCH (08:58)
[2017-01-30] MEDS: DIVALPROEX SODIUM 500 MG DR TABLET PO SCH ×2 (08:58→17:00)
[2017-01-30] MEDS: RisperiDONE 3 MG TABLET PO SCH ×2 (08:58→17:23)
[2017-01-30] MEDS: FAMOTIDINE 20 MG TABLET PO SCH ×2 (08:58→17:23)
[2017-01-30] MEDS: DIVALPROEX SODIUM 250 MG DR TABLET PO SCH ×2 (08:58→17:00)
[2017-01-30] MEDS: ALLOPURINOL 100 MG TABLET PO SCH (09:00)
[2017-01-30] MEDS: TERBINAFINE HCL 250 MG TABLET PO SCH (09:00)
[2017-01-30] MEDS ORDERED: PALIPERIDONE PALMITATE 234 MG/1.5 ML SYRINGE IM SCH (16:00)
[2017-01-30 16:04] VITALS: BP 136/77
[2017-01-30] MEDS: OXYBUTYNIN CHLORIDE 5 MG TABLET PO SCH (20:14)
[2017-01-31] MEDS: CHOLESTYRAMINE/ASPARTAME 4 GM POWDER PACKET PO SCH ×2 (06:30→11:30)
[2017-01-31 06:58] VITALS: BP 124/78
[2017-01-31 08:00] VITALS: BP 132/78
[2017-01-31] MEDS: RisperiDONE 3 MG TABLET PO SCH (09:13)
[2017-01-31] MEDS: FERROUS SULFATE 325 MG EC TABLET PO SCH (09:13)
[2017-01-31] MEDS: AmLODIPine BESYLATE 5 MG TABLET PO SCH (09:13)
[2017-01-31] MEDS: MULTIVITAMINS, THERAPEUTIC TABLET PO SCH (09:13)
[2017-01-31] MEDS: DIVALPROEX SODIUM 250 MG DR TABLET PO SCH (09:13)
[2017-01-31] MEDS: FAMOTIDINE 20 MG TABLET PO SCH (09:14)
[2017-01-31] MEDS: TERBINAFINE HCL 250 MG TABLET PO SCH (09:14)
[2017-01-31] MEDS: ALLOPURINOL 100 MG TABLET PO SCH (09:14)
[2017-01-31] MEDS: DIVALPROEX SODIUM 500 MG DR TABLET PO SCH (09:14)
[2017-01-31] MEDS: NICOTINE 21 MG/24 HOUR PATCH TD SCH (09:18)
[2017-01-31] MEDS ORDERED: PALI234D IM (14:44)
[2017-01-31] MEDS ORDERED: RISP3 PO (14:44)
[2017-01-31] MEDS ORDERED: TERB250 PO (14:44)
[2017-01-31] MEDS ORDERED: FAMO20 PO (14:44)
[2017-01-31] MEDS ORDERED: QUESL4 PO (14:44)
[2017-01-31] MEDS ORDERED: FERR-89 PO (14:44)
[2017-02-27] MEDS ORDERED: PALIPERIDONE PALMITATE 234 MG/1.5 ML SYRINGE IM SCH (09:00)
== END 2017-01-31 15:20 | disposition home or self-care (01) | DRG 750 ==
LOC: B3A 10:48 → EDSTATUS 10:53 → B3A 15:54
PROVIDERS: ADMIT Psychiatry & Neurology Psychiatry; ATTEND Psychiatry & Neurology Psychiatry
DX: F25.9 Schizoaffective disorder, unspecified (principal); I10 Essential (primary) hypertension; F15.90 Other stimulant use, unspecified, uncomplicated; M10.9 Gout, unspecified; R32 Unspecified urinary incontinence; J30.9 Allergic rhinitis, unspecified; F19.10 Other psychoactive substance abuse, uncomplicated; Z88.5 Allergy status to narcotic agent; Z91.013 Allergy to seafood
CPT/HCPCS: 83036; 84439; 84443; 87086; 90471; J1200; J1630; J2060

== ENCOUNTER 2017-09-04 06:56 | Inpatient (IN) | payer MEDICAID, OTHER ==
[~2017-09-04] VITALS: Ht 157.5 cm; Wt 80.0 kg
[~2017-09-04 06:56] MED LIST changes: +ALLO100T PO; -ALLO300 PO; +FAMO20 PO; +FERR-89 PO; +PALI234D IM; +QUESL4 PO; +RISP3 PO; -RISPC50 IM; +TERB250 PO
[2017-09-04 07:39] LABS: BASOPHILS % (AUTO) 0.5 % (0.0-2.0); EOSINOPHILS % (AUTO) 2.3 % (1.0-6.0); HEMATOCRIT 36.5 % (36-46); HEMOGLOBIN 12.3 g/dL (12.0-16.0); LYMPHOCYTES # (AUTO) 1.7 K/uL (1.0-4.8); LYMPHOCYTES % (AUTO) 21.1 % (22.0-44.0); MEAN CORPUSCULAR HEMOGLOBIN 29.5 pg (26.0-34.0); MEAN CORPUSCULAR HGB CONC 33.7 G/dL (31.0-37.0); MEAN CORPUSCULAR VOLUME 88 fL (80-100); MONOCYTES # (AUTO) 0.8 K/uL (0.1-1.0); MONOCYTES % (AUTO) 9.8 % (2.0-9.0); NEUTROPHILS # (AUTO) 5.5 K/uL (1.8-7.7); NEUTROPHILS % (AUTO) 66.3 % (40.0-70.0); PLATELET COUNT (AUTO) 256 K/uL (150-450); RED BLOOD CELL COUNT(AUTO) 4.17 MIL/uL (4.00-5.20); RED CELL DISTRIBUTION WIDTH 14.6 % (11.5-14.5)
[2017-09-04 07:51] LABS: ANION GAP 9 mmol/L (8-16); CALCIUM, TOTAL 8.7 mg/dL (8.8-10.5); CARBON DIOXIDE 29 mmol/L (22-29); CHLORIDE 104 mmol/L (98-107); CREATININE 0.56 mg/dL (0.60-1.30); GLOMERULAR FILTR. RATE CALC > 60 mL/min (>60); GLUCOSE,RANDOM 104 mg/dL (70-110); POTASSIUM 3.7 mmol/L (3.5-5.1); SODIUM SERUM 142 mmol/L (136-145); UREA NITROGEN, BLOOD 13 mg/dL (7-18)
[2017-09-04 07:57] LABS: ALANINE AMINOTRANSFERASE 30 U/L (12-78); ALBUMIN 3.4 g/dL (3.4-5.0); ALKALINE PHOSPHATASE 96 U/L (46-116); ASPARTATE AMINOTRANSFERASE 20 U/L (15-37); BILIRUBIN,TOTAL 0.2 mg/dL (0.1-1.0); LIPASE 86 U/L (73-393); TOTAL PROTEIN, SERUM 7.4 g/dL (6.4-8.2)
[2017-09-04 08:08] LABS: VALPROIC ACID 40 mcg/mL (50-100)
[2017-09-04] MEDS ORDERED: HALOPERIDOL 5 MG TABLET PO PRN (09:00)
[2017-09-04] MEDS ORDERED: LORazepam 2 MG TABLET PO PRN (09:00)
[2017-09-04] MEDS ORDERED: DIVALPROEX SODIUM 250 MG DR TABLET PO SCH (09:00)
[2017-09-04] MEDS ORDERED: ZOLPIDEM TARTRATE 10 MG TABLET PO PRN (09:00)
[2017-09-04] MEDS: RisperiDONE 3 MG TABLET PO SCH ×2 (10:14→17:20)
[2017-09-04 10:50] VITALS: BP 144/71
[2017-09-04 14:39] VITALS: BP 144/71
[2017-09-04] MEDS ORDERED: PNEUMOCOCCAL VACCINE POLYVALENT 0.5 ML VIAL [PPSV23] IM ONE (16:00)
[2017-09-04] MEDS: DIVALPROEX SODIUM 500 MG ER TABLET PO SCH (17:00)
[2017-09-04] MEDS: FAMOTIDINE 20 MG TABLET PO SCH ×2 (17:00→17:19)
[2017-09-04] MEDS: OXYBUTYNIN CHLORIDE 5 MG TABLET PO SCH (20:42)
[2017-09-04] MEDS ORDERED: PALIPERIDONE 3 MG ER TABLET PO SCH ×2 (21:00)
[2017-09-05 09:00] VITALS: BP 151/82
[2017-09-05] MEDS: AmLODIPine BESYLATE 5 MG TABLET PO SCH (10:08)
[2017-09-05] MEDS: FAMOTIDINE 20 MG TABLET PO SCH ×2 (10:09→17:00)
[2017-09-05] MEDS: ALLOPURINOL 100 MG TABLET PO SCH (10:09)
[2017-09-05] MEDS: DIVALPROEX SODIUM 500 MG ER TABLET PO SCH (17:00)
[2017-09-05] MEDS ORDERED: DiphenhydrAMINE HCL 50 MG/ML VIAL IM ONE (17:15)
[2017-09-05] MEDS ORDERED: HALOPERIDOL LACTATE 5 MG/ML VIAL IM ONE (17:15)
[2017-09-05] MEDS ORDERED: LORazepam 2 MG/ML VIAL IM ONE (17:15)
[2017-09-05 20:00] VITALS: BP 119/57
[2017-09-05] MEDS: PALIPERIDONE 3 MG ER TABLET PO SCH (21:28)
[2017-09-05] MEDS: OXYBUTYNIN CHLORIDE 5 MG TABLET PO SCH (21:28)
[2017-09-06 08:30] VITALS: BP 131/75
[2017-09-06] MEDS: DIVALPROEX SODIUM 250 MG ER TABLET PO SCH ×2 (09:21→17:00)
[2017-09-06] MEDS: FAMOTIDINE 20 MG TABLET PO SCH ×2 (09:22→17:00)
[2017-09-06] MEDS: DIVALPROEX SODIUM 500 MG ER TABLET PO SCH ×2 (09:22→17:00)
[2017-09-06] MEDS: AmLODIPine BESYLATE 5 MG TABLET PO SCH (09:22)
[2017-09-06] MEDS: ALLOPURINOL 100 MG TABLET PO SCH (09:22)
[2017-09-06 16:00] VITALS: BP 152/63
[2017-09-06] MEDS: PALIPERIDONE 3 MG ER TABLET PO SCH (20:07)
[2017-09-06] MEDS: OXYBUTYNIN CHLORIDE 5 MG TABLET PO SCH (20:07)
[2017-09-06] MEDS: LOPERAMIDE HCL 2 MG CAPSULE PO PRN (21:43)
[2017-09-07 08:05] VITALS: BP 145/78
[2017-09-07] MEDS: FAMOTIDINE 20 MG TABLET PO SCH ×2 (08:05→16:22)
[2017-09-07] MEDS: DIVALPROEX SODIUM 500 MG ER TABLET PO SCH ×2 (08:05→16:21)
[2017-09-07] MEDS: ALLOPURINOL 100 MG TABLET PO SCH (08:05)
[2017-09-07] MEDS: IBUPROFEN 600 MG TABLET PO PRN ×2 (08:05→16:25)
[2017-09-07] MEDS: AmLODIPine BESYLATE 5 MG TABLET PO SCH (08:06)
[2017-09-07] MEDS: DIVALPROEX SODIUM 250 MG ER TABLET PO SCH ×2 (08:11→16:21)
[2017-09-07 17:25] VITALS: BP 131/61
[2017-09-07] MEDS: PALIPERIDONE 3 MG ER TABLET PO SCH (20:14)
[2017-09-07] MEDS: OXYBUTYNIN CHLORIDE 5 MG TABLET PO SCH (20:14)
[2017-09-08 09:00] VITALS: BP 154/69
[2017-09-08] MEDS: DIVALPROEX SODIUM 250 MG ER TABLET PO SCH ×2 (09:38→16:20)
[2017-09-08] MEDS: DIVALPROEX SODIUM 500 MG ER TABLET PO SCH ×2 (09:38→16:20)
[2017-09-08] MEDS: AmLODIPine BESYLATE 5 MG TABLET PO SCH (09:38)
[2017-09-08] MEDS: ALLOPURINOL 100 MG TABLET PO SCH (09:38)
[2017-09-08] MEDS: FAMOTIDINE 20 MG TABLET PO SCH ×2 (09:38→16:20)
[2017-09-08] MEDS: NICOTINE 21 MG/24 HOUR PATCH TD SCH (12:02)
[2017-09-08] MEDS ORDERED: ACETAMINOPHEN 325 MG TABLET PO PRN (17:15)
[2017-09-08 17:23] VITALS: BP 138/57
[2017-09-08] MEDS: OXYBUTYNIN CHLORIDE 5 MG TABLET PO SCH (20:25)
[2017-09-08] MEDS: PALIPERIDONE 3 MG ER TABLET PO SCH (20:25)
[2017-09-09] MEDS: AmLODIPine BESYLATE 5 MG TABLET PO SCH (08:33)
[2017-09-09] MEDS: NICOTINE 21 MG/24 HOUR PATCH TD SCH (08:33)
[2017-09-09] MEDS: DIVALPROEX SODIUM 500 MG ER TABLET PO SCH ×2 (08:33→16:03)
[2017-09-09] MEDS: DIVALPROEX SODIUM 250 MG ER TABLET PO SCH ×2 (08:33→16:03)
[2017-09-09] MEDS: ALLOPURINOL 100 MG TABLET PO SCH (08:34)
[2017-09-09] MEDS: FAMOTIDINE 20 MG TABLET PO SCH ×2 (08:34→16:03)
[2017-09-09 08:58] VITALS: BP 136/73
[2017-09-09 18:58] VITALS: BP 121/64
[2017-09-09] MEDS: PALIPERIDONE 3 MG ER TABLET PO SCH (20:34)
[2017-09-09] MEDS: OXYBUTYNIN CHLORIDE 5 MG TABLET PO SCH (20:34)
[2017-09-09 20:39] VITALS: BP 149/77
[2017-09-09] MEDS: ACETAMINOPHEN 325 MG TABLET PO PRN (20:39)
[2017-09-09 21:39] VITALS: BP 142/71
[2017-09-10 09:35] VITALS: BP 136/79
[2017-09-10] MEDS: DIVALPROEX SODIUM 250 MG ER TABLET PO SCH ×2 (10:22→17:35)
[2017-09-10] MEDS: FAMOTIDINE 20 MG TABLET PO SCH ×2 (10:23→17:35)
[2017-09-10] MEDS: DIVALPROEX SODIUM 500 MG ER TABLET PO SCH ×2 (10:23→17:35)
[2017-09-10] MEDS: AmLODIPine BESYLATE 5 MG TABLET PO SCH (10:24)
[2017-09-10] MEDS: ALLOPURINOL 100 MG TABLET PO SCH (10:24)
[2017-09-10] MEDS: NICOTINE 21 MG/24 HOUR PATCH TD SCH (10:35)
[2017-09-10] MEDS: LOPERAMIDE HCL 2 MG CAPSULE PO PRN (14:56)
[2017-09-10] MEDS: ACETAMINOPHEN 325 MG TABLET PO PRN (14:57)
[2017-09-10] MEDS: PALIPERIDONE 3 MG ER TABLET PO SCH (20:03)
[2017-09-10] MEDS: OXYBUTYNIN CHLORIDE 5 MG TABLET PO SCH (20:03)
[2017-09-11] MEDS: DIVALPROEX SODIUM 250 MG ER TABLET PO SCH ×2 (09:50→16:04)
[2017-09-11] MEDS: DIVALPROEX SODIUM 500 MG ER TABLET PO SCH ×2 (09:50→16:04)
[2017-09-11] MEDS: FAMOTIDINE 20 MG TABLET PO SCH ×2 (09:51→16:04)
[2017-09-11] MEDS: ALLOPURINOL 100 MG TABLET PO SCH (09:51)
[2017-09-11] MEDS: AmLODIPine BESYLATE 5 MG TABLET PO SCH (09:51)
[2017-09-11] MEDS: NICOTINE 21 MG/24 HOUR PATCH TD SCH (09:54)
[2017-09-11] MEDS: LOPERAMIDE HCL 2 MG CAPSULE PO PRN (10:04)
[2017-09-11 10:13] VITALS: BP 160/77
[2017-09-11] MEDS: ACETAMINOPHEN 325 MG TABLET PO PRN (16:04)
[2017-09-11 16:05] VITALS: BP 129/73
[2017-09-11] MEDS: OXYBUTYNIN CHLORIDE 5 MG TABLET PO SCH (20:19)
[2017-09-11] MEDS: PALIPERIDONE 3 MG ER TABLET PO SCH (20:20)
[2017-09-12 00:49] VITALS: BP 144/67
[2017-09-12] MEDS: ACETAMINOPHEN 325 MG TABLET PO PRN ×2 (00:49→10:42)
[2017-09-12 09:31] VITALS: BP 138/76
[2017-09-12] MEDS: AmLODIPine BESYLATE 5 MG TABLET PO SCH (10:34)
[2017-09-12] MEDS: ALLOPURINOL 100 MG TABLET PO SCH (10:34)
[2017-09-12] MEDS: DIVALPROEX SODIUM 500 MG ER TABLET PO SCH ×2 (10:34→16:43)
[2017-09-12] MEDS: FAMOTIDINE 20 MG TABLET PO SCH ×2 (10:34→16:44)
[2017-09-12] MEDS: DIVALPROEX SODIUM 250 MG ER TABLET PO SCH ×2 (10:35→16:44)
[2017-09-12] MEDS: NICOTINE 21 MG/24 HOUR PATCH TD SCH (10:44)
[2017-09-12] MEDS: LOPERAMIDE HCL 2 MG CAPSULE PO PRN (14:26)
[2017-09-12 19:19] VITALS: BP 127/81
[2017-09-12] MEDS: PALIPERIDONE 3 MG ER TABLET PO SCH (21:31)
[2017-09-12] MEDS: OXYBUTYNIN CHLORIDE 5 MG TABLET PO SCH (21:32)
[2017-09-13 09:05] VITALS: BP 135/63
[2017-09-13] MEDS: ALLOPURINOL 100 MG TABLET PO SCH (09:52)
[2017-09-13] MEDS: FAMOTIDINE 20 MG TABLET PO SCH ×2 (09:52→16:48)
[2017-09-13] MEDS: AmLODIPine BESYLATE 5 MG TABLET PO SCH (09:54)
[2017-09-13] MEDS: DIVALPROEX SODIUM 500 MG ER TABLET PO SCH ×2 (09:54→16:48)
[2017-09-13] MEDS: DIVALPROEX SODIUM 250 MG ER TABLET PO SCH ×2 (09:56→16:48)
[2017-09-13] MEDS: NICOTINE 21 MG/24 HOUR PATCH TD SCH (10:02)
[2017-09-13] MEDS: ACETAMINOPHEN 325 MG TABLET PO PRN (11:39)
[2017-09-13 17:31] VITALS: BP 129/69
[2017-09-13] MEDS: PALIPERIDONE 3 MG ER TABLET PO SCH (20:09)
[2017-09-13] MEDS: OXYBUTYNIN CHLORIDE 5 MG TABLET PO SCH (20:09)
[2017-09-14] MEDS: DIVALPROEX SODIUM 500 MG ER TABLET PO SCH ×2 (09:14→16:05)
[2017-09-14] MEDS: ALLOPURINOL 100 MG TABLET PO SCH (09:15)
[2017-09-14] MEDS: AmLODIPine BESYLATE 5 MG TABLET PO SCH (09:15)
[2017-09-14] MEDS: DIVALPROEX SODIUM 250 MG ER TABLET PO SCH ×2 (09:15→16:05)
[2017-09-14] MEDS: FAMOTIDINE 20 MG TABLET PO SCH ×2 (09:15→16:05)
[2017-09-14] MEDS: NICOTINE 21 MG/24 HOUR PATCH TD SCH (09:23)
[2017-09-14] MEDS: LOPERAMIDE HCL 2 MG CAPSULE PO PRN ×2 (14:49→21:58)
[2017-09-14] MEDS: PALIPERIDONE 3 MG ER TABLET PO SCH (20:09)
[2017-09-14] MEDS: OXYBUTYNIN CHLORIDE 5 MG TABLET PO SCH (20:09)
[2017-09-14 20:40] VITALS: BP 131/71
[2017-09-14] MEDS: ACETAMINOPHEN 325 MG TABLET PO PRN (21:57)
[2017-09-15] MEDS: AmLODIPine BESYLATE 5 MG TABLET PO SCH (10:52)
[2017-09-15] MEDS: DIVALPROEX SODIUM 500 MG ER TABLET PO SCH ×2 (10:52→16:58)
[2017-09-15] MEDS: DIVALPROEX SODIUM 250 MG ER TABLET PO SCH ×2 (10:53→16:58)
[2017-09-15] MEDS: ALLOPURINOL 100 MG TABLET PO SCH (10:53)
[2017-09-15] MEDS: FAMOTIDINE 20 MG TABLET PO SCH ×2 (10:53→16:58)
[2017-09-15] MEDS: NICOTINE 21 MG/24 HOUR PATCH TD SCH (10:57)
[2017-09-15 17:03] VITALS: BP 135/59
[2017-09-15] MEDS: OXYBUTYNIN CHLORIDE 5 MG TABLET PO SCH (20:25)
[2017-09-15] MEDS: PALIPERIDONE 3 MG ER TABLET PO SCH (20:25)
[2017-09-15] MEDS: LOPERAMIDE HCL 2 MG CAPSULE PO PRN (20:42)
[2017-09-16 09:21] VITALS: BP 113/67
[2017-09-16] MEDS: NICOTINE 21 MG/24 HOUR PATCH TD SCH (10:27)
[2017-09-16] MEDS: DIVALPROEX SODIUM 250 MG ER TABLET PO SCH ×2 (10:27→16:47)
[2017-09-16] MEDS: DIVALPROEX SODIUM 500 MG ER TABLET PO SCH ×2 (10:28→16:47)
[2017-09-16] MEDS: ALLOPURINOL 100 MG TABLET PO SCH (10:28)
[2017-09-16] MEDS: FAMOTIDINE 20 MG TABLET PO SCH ×2 (10:28→16:47)
[2017-09-16] MEDS: AmLODIPine BESYLATE 5 MG TABLET PO SCH (10:28)
[2017-09-16 16:56] VITALS: BP 124/58
[2017-09-16] MEDS: OXYBUTYNIN CHLORIDE 5 MG TABLET PO SCH (20:25)
[2017-09-16] MEDS: PALIPERIDONE 3 MG ER TABLET PO SCH (20:25)
[2017-09-17] MEDS ORDERED: LORazepam 2 MG TABLET PO PRN (03:15)
[2017-09-17] MEDS ORDERED: ZOLPIDEM TARTRATE 10 MG TABLET PO PRN (03:15)
[2017-09-17 08:30] VITALS: BP 124/60
[2017-09-17] MEDS: DIVALPROEX SODIUM 500 MG ER TABLET PO SCH (09:10)
[2017-09-17] MEDS: AmLODIPine BESYLATE 5 MG TABLET PO SCH (09:10)
[2017-09-17] MEDS: ALLOPURINOL 100 MG TABLET PO SCH (09:10)
[2017-09-17] MEDS: DIVALPROEX SODIUM 250 MG ER TABLET PO SCH (09:10)
[2017-09-17] MEDS: NICOTINE 21 MG/24 HOUR PATCH TD SCH (09:10)
[2017-09-17] MEDS: FAMOTIDINE 20 MG TABLET PO SCH (09:11)
[2017-09-17] MEDS: ACETAMINOPHEN 325 MG TABLET PO PRN (09:12)
[2017-09-17] MEDS ORDERED: PALI3 PO (10:43)
== END 2017-09-17 12:19 | disposition home or self-care (01) | DRG 750 ==
LOC: EMS 06:58 → 3EI 09:50 → EMS 10:20
PROVIDERS: ADMIT Psychiatry & Neurology Psychiatry; ATTEND Psychiatry & Neurology Psychiatry
DX: F25.0 Schizoaffective disorder, bipolar type (principal); I10 Essential (primary) hypertension; B35.1 Tinea unguium; D64.9 Anemia, unspecified; J44.9 Chronic obstructive pulmonary disease, unspecified; K21.9 Gastro-esophageal reflux disease without esophagitis; M10.9 Gout, unspecified; R32 Unspecified urinary incontinence; Z87.891 Personal history of nicotine dependence; Z91.5 Personal history of self-harm; Z28.21 Immunization not carried out because of patient refusal
CPT/HCPCS: 87081; 99285; G0480; J1200; J1630; J2060

== ENCOUNTER 2018-01-16 16:53 | Inpatient (IN) | payer MEDICAID, OTHER ==
[~2018-01-16] VITALS: Ht 157.5 cm; Wt 78.0 kg
[~2018-01-16 16:53] MED LIST changes: -FERR-89 PO; -PALI234D IM; +PALI3 PO; -QUESL4 PO; -RISP3 PO; -TERB250 PO
[2018-01-16 18:38] LABS: GLUCOSE,POINT OF CARE 94 MG/DL (70-110)
[2018-01-16 18:48] LABS: BASOPHILS % (AUTO) 0.7 % (0.0-2.0); EOSINOPHILS % (AUTO) 1.3 % (1.0-6.0); HEMATOCRIT 35.6 % (36-46); LYMPHOCYTES # (AUTO) 1.7 K/uL (1.0-4.8); LYMPHOCYTES % (AUTO) 23.3 % (22.0-44.0); MEAN CORPUSCULAR HEMOGLOBIN 29.3 pg (26.0-34.0); MEAN CORPUSCULAR HGB CONC 33.8 G/dL (31.0-37.0); MEAN CORPUSCULAR VOLUME 87 fL (80-100); MONOCYTES # (AUTO) 0.6 K/uL (0.1-1.0); NEUTROPHILS # (AUTO) 4.7 K/uL (1.8-7.7); NEUTROPHILS % (AUTO) 65.7 % (40.0-70.0); PLATELET COUNT (AUTO) 232 K/uL (150-450); RED BLOOD CELL COUNT(AUTO) 4.11 MIL/uL (4.00-5.20)
[2018-01-16 18:58] LABS: ANION GAP 3 mmol/L (8-16); CALCIUM, TOTAL 8.8 mg/dL (8.8-10.5); CARBON DIOXIDE 30 mmol/L (22-29); CHLORIDE 106 mmol/L (98-107); GLOMERULAR FILTR. RATE CALC > 60 mL/min (>60); GLUCOSE,RANDOM 98 mg/dL (70-110); POTASSIUM 3.6 mmol/L (3.5-5.1); SODIUM SERUM 139 mmol/L (136-145); UREA NITROGEN, BLOOD 5 mg/dL (7-18)
[2018-01-16] MEDS ORDERED: LORazepam 1 MG TABLET PO ONE (19:00)
[2018-01-16 19:05] LABS: ALANINE AMINOTRANSFERASE 65 U/L (12-78); ALBUMIN 3.3 g/dL (3.4-5.0); ALKALINE PHOSPHATASE 101 U/L (46-116); ASPARTATE AMINOTRANSFERASE 36 U/L (15-37); BILIRUBIN,TOTAL 0.3 mg/dL (0.1-1.0); TOTAL PROTEIN, SERUM 6.9 g/dL (6.4-8.2)
[2018-01-16] MEDS ORDERED: HALOPERIDOL 5 MG TABLET PO PRN (20:00)
[2018-01-16 20:34] LABS: FREE T4 (FREE THYROXINE) 0.88 ng/dL (0.76-1.46); THYROID STIMULATING HORMONE 1.51 uIU/mL (0.36-3.74)
[2018-01-17] MEDS ORDERED: PNEUMOCOCCAL VACCINE POLYVALENT 0.5 ML VIAL [PPSV23] IM ONE ×2 (03:15→04:30)
[2018-01-17 06:21] VITALS: BP 108/72
[2018-01-17] MEDS ORDERED: CloNIDine HCL 0.1 MG TABLET PO PRN (07:15)
[2018-01-17 09:00] VITALS: BP 140/69
[2018-01-17] MEDS ORDERED: PERMETHRIN 1% 60 ML LOTION TP ONE (11:15)
[2018-01-17] MEDS: DIVALPROEX SODIUM 250 MG DR TABLET PO SCH ×2 (12:13→20:25)
[2018-01-17] MEDS: PALIPERIDONE 3 MG ER TABLET PO SCH (21:00)
[2018-01-18 08:34] VITALS: BP 135/64
[2018-01-18] MEDS: DIVALPROEX SODIUM 250 MG DR TABLET PO SCH ×2 (09:49→20:12)
[2018-01-18 16:17] VITALS: BP 140/71
[2018-01-18 17:09] VITALS: BP 140/71
[2018-01-18] MEDS: IBUPROFEN 400 MG TABLET PO PRN (17:09)
[2018-01-18] MEDS: PALIPERIDONE 3 MG ER TABLET PO SCH (20:12)
[2018-01-19 08:15] VITALS: BP 138/68
[2018-01-19] MEDS: DIVALPROEX SODIUM 250 MG DR TABLET PO SCH ×2 (08:41→20:55)
[2018-01-19] MEDS: IBUPROFEN 400 MG TABLET PO PRN (14:59)
[2018-01-19 16:14] VITALS: BP 143/70
[2018-01-19] MEDS: PALIPERIDONE 3 MG ER TABLET PO SCH (20:55)
[2018-01-19] MEDS: LORazepam 2 MG TABLET PO PRN (20:55)
[2018-01-20 08:26] VITALS: BP 140/76
[2018-01-20] MEDS: DIVALPROEX SODIUM 250 MG DR TABLET PO SCH ×2 (09:08→20:39)
[2018-01-20] MEDS ORDERED: PERMETHRIN 5% 60 GM CREAM TP ONE (15:15)
[2018-01-20] MEDS ORDERED: PERMETHRIN 1% 60 ML LOTION TP ONE (15:15)
[2018-01-20] MEDS ORDERED: IVERMECTIN 3 MG TABLET PO ONE (15:15)
[2018-01-20 16:27] VITALS: BP 132/84
[2018-01-20] MEDS: PALIPERIDONE 3 MG ER TABLET PO SCH (20:39)
[2018-01-21 06:10] VITALS: BP 127/74
[2018-01-21 08:00] VITALS: BP 137/86
[2018-01-21] MEDS: DIVALPROEX SODIUM 250 MG DR TABLET PO SCH ×2 (08:46→20:41)
[2018-01-21] MEDS: IBUPROFEN 400 MG TABLET PO PRN (16:20)
[2018-01-21] MEDS: LORazepam 2 MG TABLET PO PRN (16:20)
[2018-01-21 19:48] VITALS: BP 153/87
[2018-01-21] MEDS: ZOLPIDEM TARTRATE 10 MG TABLET PO PRN (20:41)
[2018-01-21] MEDS: PALIPERIDONE 3 MG ER TABLET PO SCH (20:41)
[2018-01-22 00:56] VITALS: BP 132/87
[2018-01-22 08:20] VITALS: BP 118/74
[2018-01-22] MEDS: DIVALPROEX SODIUM 250 MG DR TABLET PO SCH ×2 (08:53→20:12)
[2018-01-22] MEDS ORDERED: ALBUTEROL SULFATE HFA 90 MCG/PUFF 8 GM INHALER IH PRN (10:45)
[2018-01-22] MEDS: FUROSEMIDE 20 MG TABLET PO SCH (12:07)
[2018-01-22 16:00] VITALS: BP 156/94
[2018-01-22 18:00] VITALS: BP 140/85
[2018-01-22] MEDS: PALIPERIDONE 3 MG ER TABLET PO SCH (20:12)
[2018-01-23 08:20] VITALS: BP 116/71
[2018-01-23] MEDS: FUROSEMIDE 20 MG TABLET PO SCH (09:04)
[2018-01-23] MEDS: DIVALPROEX SODIUM 250 MG DR TABLET PO SCH ×2 (09:04→20:31)
[2018-01-23 16:50] VITALS: BP 137/65
[2018-01-23] MEDS ORDERED: IVERMECTIN 3 MG TABLET PO ONE (19:00)
[2018-01-23] MEDS: PALIPERIDONE 3 MG ER TABLET PO SCH (20:31)
[2018-01-24 06:58] VITALS: BP 118/69
[2018-01-24 08:14] VITALS: BP 121/66
[2018-01-24] MEDS: DIVALPROEX SODIUM 250 MG DR TABLET PO SCH ×2 (08:42→20:22)
[2018-01-24] MEDS: FUROSEMIDE 20 MG TABLET PO SCH (08:42)
[2018-01-24 16:00] VITALS: BP 131/61
[2018-01-24] MEDS: PALIPERIDONE 3 MG ER TABLET PO SCH (20:22)
[2018-01-25 06:40] VITALS: BP 135/73
[2018-01-25 08:13] VITALS: BP 118/66
[2018-01-25] MEDS: DIVALPROEX SODIUM 500 MG DR TABLET PO SCH (09:21)
[2018-01-25] MEDS: FUROSEMIDE 20 MG TABLET PO SCH (09:21)
[2018-01-25] MEDS: ALLOPURINOL 100 MG TABLET PO SCH (09:21)
[2018-01-25] MEDS: AmLODIPine BESYLATE 5 MG TABLET PO SCH (09:22)
[2018-01-25] MEDS: IBUPROFEN 400 MG TABLET PO PRN (14:51)
[2018-01-25 17:29] VITALS: BP 109/84
[2018-01-25] MEDS: DIVALPROEX SODIUM 250 MG DR TABLET PO SCH (20:00)
[2018-01-25] MEDS: PALIPERIDONE 3 MG ER TABLET PO SCH (20:00)
[2018-01-26 05:10] VITALS: BP 119/78
[2018-01-26 08:20] VITALS: BP 143/78
[2018-01-26] MEDS: AmLODIPine BESYLATE 5 MG TABLET PO SCH (09:04)
[2018-01-26] MEDS: DIVALPROEX SODIUM 500 MG DR TABLET PO SCH ×2 (09:04→20:16)
[2018-01-26] MEDS: ALLOPURINOL 100 MG TABLET PO SCH (09:04)
[2018-01-26 16:23] VITALS: BP 139/64
[2018-01-26] MEDS: IBUPROFEN 400 MG TABLET PO PRN (19:07)
[2018-01-26] MEDS: PALIPERIDONE 3 MG ER TABLET PO SCH (20:16)
[2018-01-26] MEDS: ZOLPIDEM TARTRATE 10 MG TABLET PO PRN (21:21)
[2018-01-27 03:06] VITALS: BP 133/68
[2018-01-27] MEDS: DIVALPROEX SODIUM 500 MG DR TABLET PO SCH ×2 (09:50→20:24)
[2018-01-27] MEDS: ALLOPURINOL 100 MG TABLET PO SCH (09:50)
[2018-01-27] MEDS: AmLODIPine BESYLATE 5 MG TABLET PO SCH (09:50)
[2018-01-27] MEDS: LORazepam 2 MG TABLET PO PRN (09:51)
[2018-01-27 12:15] VITALS: BP 140/96
[2018-01-27 12:30] VITALS: BP 140/96
[2018-01-27] MEDS ORDERED: LORazepam 1 MG TABLET PO PRN (12:30)
[2018-01-27 12:45] VITALS: BP 123/67
[2018-01-27 13:15] VITALS: BP 130/67
[2018-01-27 16:10] VITALS: BP 124/66
[2018-01-27] MEDS: PALIPERIDONE 3 MG ER TABLET PO SCH (20:24)
[2018-01-28 06:10] VITALS: BP 117/79
[2018-01-28 08:33] VITALS: BP 132/96
[2018-01-28 08:35] VITALS: BP 132/96
[2018-01-28] MEDS: ALLOPURINOL 100 MG TABLET PO SCH (08:41)
[2018-01-28] MEDS: DIVALPROEX SODIUM 500 MG DR TABLET PO SCH (08:41)
[2018-01-28] MEDS: AmLODIPine BESYLATE 5 MG TABLET PO SCH (08:41)
[2018-01-28] MEDS ORDERED: DIVA-78 PO (13:28)
[2018-01-28] MEDS ORDERED: ALLO100T PO (13:31)
[2018-01-28] MEDS ORDERED: IVER3 PO (13:31)
[2018-01-28] MEDS ORDERED: PALI3 PO (13:31)
[2018-01-28] MEDS ORDERED: AMLO-511 PO (13:31)
[2018-01-29] MEDS ORDERED: IVERMECTIN 3 MG TABLET PO SCH (09:00)
[2018-02-05] MEDS ORDERED: IVERMECTIN 3 MG TABLET PO ONE (17:00)
== END 2018-01-28 14:45 | disposition home or self-care (01) | DRG 750 ==
LOC: EMS 16:54 → B3A 21:30
PROVIDERS: ADMIT Psychiatry & Neurology Child & Adolescent Psychiatry; ATTEND Psychiatry & Neurology Child & Adolescent Psychiatry
DX: F25.0 Schizoaffective disorder, bipolar type (principal); R45.851 Suicidal ideations; Z59.0 Homelessness; B85.2 Pediculosis, unspecified; D64.9 Anemia, unspecified; F15.90 Other stimulant use, unspecified, uncomplicated; F17.200 Nicotine dependence, unspecified, uncomplicated; I10 Essential (primary) hypertension; J30.9 Allergic rhinitis, unspecified; J44.9 Chronic obstructive pulmonary disease, unspecified; K21.9 Gastro-esophageal reflux disease without esophagitis; R32 Unspecified urinary incontinence; Z91.19 Patient's noncompliance with other medical treatment and regimen; Z91.5 Personal history of self-harm; M10.9 Gout, unspecified; Z28.21 Immunization not carried out because of patient refusal
CPT/HCPCS: 84439; 84443; 90686; 90732; G0480; J3535

== ENCOUNTER 2018-07-12 13:17 | Emergency (ER) | payer MEDICAID, OTHER ==
[~2018-07-12] VITALS: Ht 154.9 cm; Wt 74.1 kg
[~2018-07-12 13:17] MED LIST changes: +DIVA-78 PO; -DIVA250T4 PO; -FAMO20 PO; +IVER3 PO; -OXYB5 PO
[2018-07-12] MEDS ORDERED: FluPHENAZine HCL 2.5 MG/ML INJ IM ONE (14:30)
[2018-07-12] MEDS ORDERED: LORazepam 2 MG/ML VIAL IM ONE (14:30)
[2018-07-12] MEDS ORDERED: DiphenhydrAMINE HCL 50 MG/ML VIAL IM ONE (15:00)
[2018-07-12 15:37] LABS: BASOPHILS % (AUTO) 0.5 % (0.0-2.0); HEMATOCRIT 37.7 % (36-46); HEMOGLOBIN 12.6 g/dL (12.0-16.0); LYMPHOCYTES # (AUTO) 1.6 K/uL (1.0-4.8); LYMPHOCYTES % (AUTO) 20.5 % (22.0-44.0); MEAN CORPUSCULAR HEMOGLOBIN 29.2 pg (26.0-34.0); MEAN CORPUSCULAR HGB CONC 33.3 G/dL (31.0-37.0); MEAN CORPUSCULAR VOLUME 88 fL (80-100); MONOCYTES # (AUTO) 0.8 K/uL (0.1-1.0); MONOCYTES % (AUTO) 10.8 % (2.0-9.0); NEUTROPHILS # (AUTO) 5.2 K/uL (1.8-7.7); NEUTROPHILS % (AUTO) 66.2 % (40.0-70.0); PLATELET COUNT (AUTO) 239 K/uL (150-450); RED BLOOD CELL COUNT(AUTO) 4.29 MIL/uL (4.00-5.20); RED CELL DISTRIBUTION WIDTH 13.7 % (11.5-14.5)
[2018-07-12 15:55] LABS: ANION GAP 11 mmol/L (8-16); CALCIUM, TOTAL 9.2 mg/dL (8.8-10.5); CARBON DIOXIDE 25 mmol/L (22-29); CHLORIDE 104 mmol/L (98-107); CREATININE 0.62 mg/dL (0.60-1.30); GLOMERULAR FILTR. RATE CALC > 60 mL/min (>60); GLUCOSE,RANDOM 87 mg/dL (70-110); POTASSIUM 3.6 mmol/L (3.5-5.1); SODIUM SERUM 140 mmol/L (136-145); UREA NITROGEN, BLOOD 11 mg/dL (7-18)
[2018-07-12 16:02] LABS: ALANINE AMINOTRANSFERASE 19 U/L (12-78); ALBUMIN 3.2 g/dL (3.4-5.0); ALKALINE PHOSPHATASE 92 U/L (46-116); ASPARTATE AMINOTRANSFERASE 20 U/L (15-37); BILIRUBIN,TOTAL 0.6 mg/dL (0.1-1.0); TOTAL PROTEIN, SERUM 6.6 g/dL (6.4-8.2)
[2018-07-12 16:04] LABS: VALPROIC ACID < 3 mcg/mL (50-100)
[2018-07-12 18:42] VITALS: BP 132/68
== END 2018-07-12 19:55 | disposition short-term general hospital (02) ==
LOC: EMS 13:20
DX: F25.9 Schizoaffective disorder, unspecified (principal); F69 Unspecified disorder of adult personality and behavior; F15.10 Other stimulant abuse, uncomplicated; J44.9 Chronic obstructive pulmonary disease, unspecified; F17.210 Nicotine dependence, cigarettes, uncomplicated; F19.90 Other psychoactive substance use, unspecified, uncomplicated; Z90.49 Acquired absence of other specified parts of digestive tract; Z91.011 Allergy to milk products; Z88.5 Allergy status to narcotic agent; Z91.013 Allergy to seafood
CPT/HCPCS: 36415; 80053; 80164; 85025; 96372; 99285; G0480; J2060; J3490

== ENCOUNTER 2018-08-01 15:46 | Inpatient (IN) | payer MEDICAID ==
[~2018-08-01] VITALS: Ht 154.9 cm; Wt 74.4 kg
[~2018-08-01 15:46] MED LIST changes: -AMLO-511 PO; -IVER3 PO
[2018-08-01] MEDS ORDERED: ZOLPIDEM TARTRATE 10 MG TABLET PO PRN (18:45)
[2018-08-01] MEDS ORDERED: PNEUMOCOCCAL VACCINE POLYVALENT 0.5 ML VIAL [PPSV23] IM ONE (19:30)
[2018-08-01 19:37] VITALS: BP 121/70
[2018-08-01] MEDS: DIVALPROEX SODIUM 500 MG DR TABLET PO SCH (20:47)
[2018-08-01] MEDS: PALIPERIDONE 3 MG ER TABLET PO SCH (20:47)
[2018-08-02 08:09] VITALS: BP 114/59
[2018-08-02 08:32] LABS: BASOPHILS % (AUTO) 0.5 % (0.0-2.0); EOSINOPHILS % (AUTO) 1.9 % (1.0-6.0); HEMATOCRIT 38.5 % (36-46); HEMOGLOBIN 12.4 g/dL (12.0-16.0); LYMPHOCYTES # (AUTO) 1.5 K/uL (1.0-4.8); LYMPHOCYTES % (AUTO) 23.1 % (22.0-44.0); MEAN CORPUSCULAR HEMOGLOBIN 28.8 pg (26.0-34.0); MEAN CORPUSCULAR HGB CONC 32.2 G/dL (31.0-37.0); MEAN CORPUSCULAR VOLUME 89 fL (80-100); MONOCYTES # (AUTO) 0.7 K/uL (0.1-1.0); MONOCYTES % (AUTO) 10.6 % (2.0-9.0); NEUTROPHILS # (AUTO) 4.1 K/uL (1.8-7.7); NEUTROPHILS % (AUTO) 63.9 % (40.0-70.0); PLATELET COUNT (AUTO) 195 K/uL (150-450); RED CELL DISTRIBUTION WIDTH 14.6 % (11.5-14.5)
[2018-08-02 08:55] LABS: HEMOGLOBIN A1C 5.7 % (4.5-6.2)
[2018-08-02] MEDS: DIVALPROEX SODIUM 500 MG DR TABLET PO SCH ×2 (08:57→20:11)
[2018-08-02 09:15] LABS: ALANINE AMINOTRANSFERASE 33 U/L (12-78); ALBUMIN 2.9 g/dL (3.4-5.0); ALKALINE PHOSPHATASE 77 U/L (46-116); ANION GAP 7 mmol/L (8-16); ASPARTATE AMINOTRANSFERASE 30 U/L (15-37); BILIRUBIN,TOTAL 0.3 mg/dL (0.1-1.0); CALCIUM, TOTAL 8.7 mg/dL (8.8-10.5); CARBON DIOXIDE 28 mmol/L (22-29); CHLORIDE 111 mmol/L (98-107); CHOL/HDL RATIO 4.6 (3.9-5.7); CHOLESTEROL 146 mg/dL (131-200); CREATININE 0.63 mg/dL (0.60-1.30); FREE T4 (FREE THYROXINE) 0.97 ng/dL (0.76-1.46); GLOMERULAR FILTR. RATE CALC > 60 mL/min (>60); GLUCOSE,RANDOM 83 mg/dL (70-110); HDL CHOLESTEROL 32 mg/dL (40-60); LDL CHOL (CALC.) 101 mg/dL (0-130); POTASSIUM 3.9 mmol/L (3.5-5.1); SODIUM SERUM 146 mmol/L (136-145); THYROID STIMULATING HORMONE 1.65 uIU/mL (0.36-3.74); TRIGLYCERIDES 65 mg/dL (15-150); UREA NITROGEN, BLOOD 16 mg/dL (7-18)
[2018-08-02] MEDS ORDERED: ALBUTEROL SULFATE HFA 90 MCG/PUFF 8 GM INHALER IH PRN (09:45)
[2018-08-02] MEDS ORDERED: BACITRACIN 28.4 GM OINTMENT TP PRN (09:45)
[2018-08-02] MEDS ORDERED: MAG HYDROX/AL HYDROX/SIMETH ES 30 ML SUSPENSION UDCUP PO PRN (09:45)
[2018-08-02] MEDS ORDERED: CloNIDine HCL 0.1 MG TABLET PO PRN (09:45)
[2018-08-02] MEDS ORDERED: BENZOCAINE/MENTHOL LOZENGE MM PRN (09:45)
[2018-08-02] MEDS ORDERED: PETROLATUM,WHITE 28 GM JELLY TP PRN (09:45)
[2018-08-02] MEDS ORDERED: LOPERAMIDE HCL 2 MG CAPSULE PO PRN (09:45)
[2018-08-02] MEDS ORDERED: MAGNESIUM HYDROXIDE SUSPENSION 30 ML UDCUP PO PRN (09:45)
[2018-08-02] MEDS ORDERED: ONDANSETRON HCL 4 MG TABLET PO PRN (09:45)
[2018-08-02 16:17] VITALS: BP 155/76
[2018-08-02] MEDS: PALIPERIDONE 3 MG ER TABLET PO SCH (20:10)
[2018-08-02] MEDS: HALOPERIDOL 5 MG TABLET PO PRN (20:11)
[2018-08-02] MEDS: LORazepam 2 MG TABLET PO PRN (20:11)
[2018-08-03 05:46] VITALS: BP 126/57
[2018-08-03 08:39] VITALS: BP 133/77
[2018-08-03 09:06] LABS: ANION GAP 6 mmol/L (8-16); CALCIUM, TOTAL 8.5 mg/dL (8.8-10.5); CARBON DIOXIDE 29 mmol/L (22-29); CHLORIDE 109 mmol/L (98-107); CREATININE 0.61 mg/dL (0.60-1.30); GLOMERULAR FILTR. RATE CALC > 60 mL/min (>60); GLUCOSE,RANDOM 85 mg/dL (70-110); POTASSIUM 4.1 mmol/L (3.5-5.1); SODIUM SERUM 144 mmol/L (136-145); UREA NITROGEN, BLOOD 16 mg/dL (7-18)
[2018-08-03 09:24] LABS: AMPHET/METH SCREEN,URINE NEGATIVE (NEGATIVE); BARBITURATE SCREEN, URINE NEGATIVE (NEGATIVE); BENZODIAZEPINES SCREEN,URINE NEGATIVE (NEGATIVE); CANNABINOID SCREEN,URINE NEGATIVE (NEGATIVE); COCAINE SCREEN,URINE NEGATIVE (NEGATIVE); METHADONE SCREEN, URINE NEGATIVE (NEGATIVE); OPIATE SCREEN,URINE NEGATIVE (NEGATIVE)
[2018-08-03 09:25] LABS: PHENCYCLIDINE SCREEN,URINE NEGATIVE (NEGATIVE)
[2018-08-03] MEDS: DOCUSATE SODIUM 100 MG CAPSULE PO SCH (10:04)
[2018-08-03] MEDS: DIVALPROEX SODIUM 500 MG DR TABLET PO SCH ×2 (10:04→20:17)
[2018-08-03] MEDS: OMEPRAZOLE 20 MG CAPSULE PO SCH (10:04)
[2018-08-03 16:35] VITALS: BP 129/62
[2018-08-03] MEDS: ACETAMINOPHEN 325 MG TABLET PO PRN (16:38)
[2018-08-03] MEDS: PALIPERIDONE 3 MG ER TABLET PO SCH (20:17)
[2018-08-04 03:10] VITALS: BP 124/78
[2018-08-04] MEDS: OMEPRAZOLE 20 MG CAPSULE PO SCH (08:02)
[2018-08-04] MEDS: DOCUSATE SODIUM 100 MG CAPSULE PO SCH (08:03)
[2018-08-04] MEDS: DIVALPROEX SODIUM 500 MG DR TABLET PO SCH ×2 (08:03→20:09)
[2018-08-04 08:27] VITALS: BP 126/71
[2018-08-04] MEDS: ACETAMINOPHEN 325 MG TABLET PO PRN (09:05)
[2018-08-04] MEDS ORDERED: PERMETHRIN 1% 60 ML LOTION TP ONE (10:15)
[2018-08-04] MEDS ORDERED: IVERMECTIN 3 MG TABLET PO ONE (10:15)
[2018-08-04] MEDS: HALOPERIDOL 5 MG TABLET PO PRN (16:43)
[2018-08-04] MEDS: LORazepam 2 MG TABLET PO PRN (16:43)
[2018-08-04] MEDS: PALIPERIDONE 3 MG ER TABLET PO SCH (20:09)
[2018-08-05 08:27] VITALS: BP 152/80
[2018-08-05] MEDS: DOCUSATE SODIUM 100 MG CAPSULE PO SCH (08:38)
[2018-08-05] MEDS: DIVALPROEX SODIUM 500 MG DR TABLET PO SCH ×2 (08:38→20:29)
[2018-08-05] MEDS: OMEPRAZOLE 20 MG CAPSULE PO SCH (08:38)
[2018-08-05] MEDS: IBUPROFEN 600 MG TABLET PO PRN (13:44)
[2018-08-05 13:45] VITALS: BP 164/82
[2018-08-05 17:13] VITALS: BP 138/76
[2018-08-05] MEDS: PALIPERIDONE 3 MG ER TABLET PO SCH (20:29)
[2018-08-06 06:19] VITALS: BP_SYST 119; BP_SYST 140; BP_DIAS 75; BP_DIAS 78
[2018-08-06 08:16] VITALS: BP 131/63
[2018-08-06] MEDS: DIVALPROEX SODIUM 500 MG DR TABLET PO SCH ×2 (08:29→20:06)
[2018-08-06] MEDS: DOCUSATE SODIUM 100 MG CAPSULE PO SCH (08:29)
[2018-08-06] MEDS: OMEPRAZOLE 20 MG CAPSULE PO SCH (08:29)
[2018-08-06] MEDS: LORazepam 2 MG TABLET PO PRN ×2 (08:37→18:09)
[2018-08-06 16:10] VITALS: BP 150/84
[2018-08-06] MEDS ORDERED: PERMETHRIN 1% 60 ML LOTION TP ONE (18:00)
[2018-08-06 18:08] VITALS: BP 138/89
[2018-08-06] MEDS: ACETAMINOPHEN 325 MG TABLET PO PRN (18:09)
[2018-08-06] MEDS: PALIPERIDONE 3 MG ER TABLET PO SCH (20:06)
[2018-08-07 08:20] VITALS: BP 157/71
[2018-08-07] MEDS: DIVALPROEX SODIUM 500 MG DR TABLET PO SCH ×2 (09:04→20:08)
[2018-08-07] MEDS: DOCUSATE SODIUM 100 MG CAPSULE PO SCH (09:04)
[2018-08-07] MEDS: OMEPRAZOLE 20 MG CAPSULE PO SCH (09:04)
[2018-08-07 10:30] VITALS: BP 134/74
[2018-08-07 16:24] VITALS: BP 150/77
[2018-08-07] MEDS: ACETAMINOPHEN 325 MG TABLET PO PRN (17:57)
[2018-08-07 18:57] VITALS: BP 142/85
[2018-08-07] MEDS: PALIPERIDONE 3 MG ER TABLET PO SCH (20:08)
[2018-08-08 06:17] VITALS: BP 153/78
[2018-08-08 08:13] VITALS: BP 113/65
[2018-08-08] MEDS: DIVALPROEX SODIUM 500 MG DR TABLET PO SCH ×2 (08:19→20:34)
[2018-08-08] MEDS: DOCUSATE SODIUM 100 MG CAPSULE PO SCH (08:19)
[2018-08-08] MEDS: OMEPRAZOLE 20 MG CAPSULE PO SCH (08:19)
[2018-08-08 16:13] VITALS: BP 147/94
[2018-08-08] MEDS: IBUPROFEN 600 MG TABLET PO PRN (16:26)
[2018-08-08] MEDS: PALIPERIDONE 3 MG ER TABLET PO SCH (20:34)
[2018-08-09 05:00] VITALS: BP 141/69
[2018-08-09 08:20] VITALS: BP 135/88
[2018-08-09] MEDS: OMEPRAZOLE 20 MG CAPSULE PO SCH (08:52)
[2018-08-09] MEDS: DIVALPROEX SODIUM 500 MG DR TABLET PO SCH ×2 (08:52→20:45)
[2018-08-09] MEDS: DOCUSATE SODIUM 100 MG CAPSULE PO SCH (08:53)
[2018-08-09] MEDS: ACETAMINOPHEN 325 MG TABLET PO PRN (09:17)
[2018-08-09 10:17] VITALS: BP 127/62
[2018-08-09 16:14] VITALS: BP 139/75
[2018-08-09] MEDS: IBUPROFEN 600 MG TABLET PO PRN (16:17)
[2018-08-09] MEDS: LORazepam 2 MG TABLET PO PRN (19:12)
[2018-08-09] MEDS: HALOPERIDOL 5 MG TABLET PO PRN (19:12)
[2018-08-09] MEDS: PALIPERIDONE 3 MG ER TABLET PO SCH (20:45)
[2018-08-10 04:32] VITALS: BP 152/63
[2018-08-10] MEDS: IBUPROFEN 600 MG TABLET PO PRN (04:42)
[2018-08-10 08:08] VITALS: BP 138/52
[2018-08-10] MEDS: OMEPRAZOLE 20 MG CAPSULE PO SCH (08:08)
[2018-08-10] MEDS: DIVALPROEX SODIUM 500 MG DR TABLET PO SCH ×2 (08:08→20:54)
[2018-08-10] MEDS: ACETAMINOPHEN 325 MG TABLET PO PRN (08:08)
[2018-08-10] MEDS: DOCUSATE SODIUM 100 MG CAPSULE PO SCH (08:08)
[2018-08-10 16:08] VITALS: BP 138/73
[2018-08-10] MEDS: PALIPERIDONE 3 MG ER TABLET PO SCH (20:54)
[2018-08-11 01:10] VITALS: BP 143/74
[2018-08-11] MEDS: ACETAMINOPHEN 325 MG TABLET PO PRN ×2 (01:12→07:14)
[2018-08-11] MEDS: OMEPRAZOLE 20 MG CAPSULE PO SCH (08:15)
[2018-08-11] MEDS: DIVALPROEX SODIUM 500 MG DR TABLET PO SCH (08:15)
[2018-08-11] MEDS: DOCUSATE SODIUM 100 MG CAPSULE PO SCH (08:20)
[2018-08-11 08:22] VITALS: BP 143/75
== END 2018-08-11 15:00 | disposition home or self-care (01) | DRG 750 ==
LOC: B3A 18:48
PROVIDERS: ADMIT Psychiatry & Neurology Psychiatry; ATTEND Psychiatry & Neurology Psychiatry
DX: F25.9 Schizoaffective disorder, unspecified (principal); E87.1 Hypo-osmolality and hyponatremia; E03.9 Hypothyroidism, unspecified; F17.200 Nicotine dependence, unspecified, uncomplicated; I10 Essential (primary) hypertension; J31.0 Chronic rhinitis; J44.9 Chronic obstructive pulmonary disease, unspecified; M10.9 Gout, unspecified; M19.90 Unspecified osteoarthritis, unspecified site; E86.0 Dehydration; R32 Unspecified urinary incontinence; Z90.49 Acquired absence of other specified parts of digestive tract; Z88.8 Allergy status to other drugs, medicaments and biological substances; Z91.013 Allergy to seafood; Z79.899 Other long term (current) drug therapy
CPT/HCPCS: 80307; 83036; 84439; 84443; 87081

== ENCOUNTER 2019-04-19 11:28 | Inpatient (IN) | payer MEDICAID, OTHER ==
[~2019-04-19] VITALS: Ht 162.6 cm; Wt 75.2 kg
[~2019-04-19 11:28] MED LIST changes: -ALLO100T PO
[2019-04-19] MEDS ORDERED: ZOLPIDEM TARTRATE 10 MG TABLET PO PRN (14:00)
[2019-04-19 16:55] LABS: BASOPHILS % (AUTO) 0.5 % (0.0-2.0); EOSINOPHILS % (AUTO) 0.9 % (1.0-6.0); HEMATOCRIT 36.9 % (36-46); HEMOGLOBIN 12.4 g/dL (12.0-16.0); LYMPHOCYTES # (AUTO) 1.3 K/uL (1.0-4.8); MEAN CORPUSCULAR HGB CONC 33.6 G/dL (31.0-37.0); MEAN CORPUSCULAR VOLUME 89 fL (80-100); MONOCYTES # (AUTO) 0.8 K/uL (0.1-1.0); MONOCYTES % (AUTO) 8.2 % (2.0-9.0); NEUTROPHILS # (AUTO) 7.2 K/uL (1.8-7.7); NEUTROPHILS % (AUTO) 76.4 % (40.0-70.0); PLATELET COUNT (AUTO) 207 K/uL (150-450); RED BLOOD CELL COUNT(AUTO) 4.13 MIL/uL (4.00-5.20); RED CELL DISTRIBUTION WIDTH 14.2 % (11.5-14.5)
[2019-04-19 17:04] LABS: ANION GAP 9 mmol/L (8-16); CALCIUM, TOTAL 8.8 mg/dL (8.8-10.5); CARBON DIOXIDE 26 mmol/L (22-29); CHLORIDE 106 mmol/L (98-107); CREATININE 0.59 mg/dL (0.60-1.30); GLOMERULAR FILTR. RATE CALC > 60 mL/min (>60); GLUCOSE,RANDOM 78 mg/dL (70-110); POTASSIUM 3.7 mmol/L (3.5-5.1); SODIUM SERUM 141 mmol/L (136-145); UREA NITROGEN, BLOOD 9 mg/dL (7-18)
[2019-04-19 17:11] LABS: ALANINE AMINOTRANSFERASE 21 U/L (12-78); ALBUMIN 3.2 g/dL (3.4-5.0); ALKALINE PHOSPHATASE 101 U/L (46-116); ASPARTATE AMINOTRANSFERASE 21 U/L (15-37); BILIRUBIN,TOTAL 0.6 mg/dL (0.1-1.0); TOTAL PROTEIN, SERUM 6.4 g/dL (6.4-8.2)
[2019-04-19 17:22] LABS: VALPROIC ACID < 3 mcg/mL (50-100)
[2019-04-19 17:30] VITALS: BP 136/118
[2019-04-19] MEDS: HALOPERIDOL 5 MG TABLET PO PRN (17:47)
[2019-04-19] MEDS ORDERED: HALOPERIDOL LACTATE 5 MG/ML VIAL ONE (17:58)
[2019-04-19] MEDS ORDERED: DiphenhydrAMINE HCL 50 MG/ML VIAL ONE (17:58)
[2019-04-19] MEDS ORDERED: LORazepam 2 MG/ML VIAL ONE (17:58)
[2019-04-19] MEDS ORDERED: HALOPERIDOL LACTATE 5 MG/ML VIAL IM ONE (18:30)
[2019-04-19] MEDS ORDERED: DiphenhydrAMINE HCL 50 MG/ML VIAL IM ONE (18:30)
[2019-04-19] MEDS ORDERED: LORazepam 2 MG/ML VIAL IM ONE (18:30)
[2019-04-19] MEDS ORDERED: GuaiFENesin/D-METHORPHAN [SUGAR-FREE] 200-20MG/10 ML SYRUP UDCUP PO PRN (20:45)
[2019-04-19] MEDS ORDERED: ALBUTEROL SULFATE HFA 90 MCG/PUFF 8 GM INHALER IH PRN (20:45)
[2019-04-19] MEDS ORDERED: MAG HYDROX/AL HYDROX/SIMETH ES 30 ML SUSPENSION UDCUP PO PRN (20:45)
[2019-04-19] MEDS ORDERED: CloNIDine HCL 0.1 MG TABLET PO PRN (20:45)
[2019-04-19] MEDS ORDERED: LOPERAMIDE HCL 2 MG CAPSULE PO PRN (20:45)
[2019-04-19] MEDS ORDERED: ONDANSETRON HCL 4 MG TABLET PO PRN (20:45)
[2019-04-19] MEDS ORDERED: PETROLATUM,WHITE 28 GM JELLY TP PRN (20:45)
[2019-04-19] MEDS ORDERED: MAGNESIUM HYDROXIDE SUSPENSION 30 ML UDCUP PO PRN (20:45)
[2019-04-19] MEDS ORDERED: INFLUENZA VIRUS VACCINE QVS 2019-20 (3YR+)/PF 60 MCG/0.5 ML SYRINGE IM ONE (21:15)
[2019-04-20 08:13] LABS: CHOL/HDL RATIO 4.2 (3.9-5.7); FREE T4 (FREE THYROXINE) 1.05 ng/dL (0.76-1.46); THYROID STIMULATING HORMONE 0.74 uIU/mL (0.36-3.74)
[2019-04-20 11:40] VITALS: BP 127/64
[2019-04-20] MEDS ORDERED: GuaiFENesin/D-METHORPHAN [SUGAR-FREE] 200-20MG/10 ML SYRUP UDCUP PO PRN (13:45)
[2019-04-20] MEDS ORDERED: PETROLATUM,WHITE 28 GM JELLY TP PRN (13:45)
[2019-04-20] MEDS ORDERED: DOCUSATE SODIUM 100 MG CAPSULE PO PRN (13:45)
[2019-04-20] MEDS ORDERED: MAG HYDROX/AL HYDROX/SIMETH ES 30 ML SUSPENSION UDCUP PO PRN (13:45)
[2019-04-20] MEDS ORDERED: LOPERAMIDE HCL 2 MG CAPSULE PO PRN (13:45)
[2019-04-20] MEDS ORDERED: ALBUTEROL SULFATE HFA 90 MCG/PUFF 8 GM INHALER IH PRN (13:45)
[2019-04-20] MEDS ORDERED: NICOTINE 14 MG/24 HOUR PATCH TD PRN (13:45)
[2019-04-20] MEDS ORDERED: ACETAMINOPHEN 325 MG TABLET PO PRN (13:45)
[2019-04-20] MEDS ORDERED: ONDANSETRON HCL 4 MG TABLET PO PRN (13:45)
[2019-04-20] MEDS ORDERED: CloNIDine HCL 0.1 MG TABLET PO PRN (13:45)
[2019-04-20] MEDS ORDERED: IBUPROFEN 400 MG TABLET PO PRN (13:45)
[2019-04-20] MEDS ORDERED: MAGNESIUM HYDROXIDE SUSPENSION 30 ML UDCUP PO PRN (13:45)
[2019-04-20] MEDS ORDERED: HALOPERIDOL LACTATE 5 MG/ML VIAL IM ONE (17:30)
[2019-04-20] MEDS ORDERED: DiphenhydrAMINE HCL 50 MG/ML VIAL IM ONE (17:30)
[2019-04-20] MEDS ORDERED: LORazepam 2 MG/ML VIAL IM ONE (17:30)
[2019-04-20] MEDS ORDERED: HALOPERIDOL LACTATE 5 MG/ML VIAL ONE (17:32)
[2019-04-20] MEDS ORDERED: DiphenhydrAMINE HCL 50 MG/ML VIAL ONE (17:32)
[2019-04-20] MEDS ORDERED: LORazepam 2 MG/ML VIAL ONE (17:32)
[2019-04-20 20:11] VITALS: BP 158/73
[2019-04-20] MEDS: PALIPERIDONE 3 MG ER TABLET PO SCH (21:00)
[2019-04-21 03:53] VITALS: BP 129/70
[2019-04-21 04:02] VITALS: BP 129/79
[2019-04-21] MEDS: ACETAMINOPHEN 325 MG TABLET PO PRN (06:18)
[2019-04-21 06:22] VITALS: BP 158/78
[2019-04-21 07:34] LABS: HEMOGLOBIN A1C 5.4 % (4.5-6.2)
[2019-04-21 07:55] LABS: CHOL/HDL RATIO 4.6 (3.9-5.7); THYROID STIMULATING HORMONE 2.2 uIU/mL (0.36-3.74)
[2019-04-21 08:30] VITALS: BP 158/88
[2019-04-21] MEDS: DIVALPROEX SODIUM 500 MG DR TABLET PO SCH ×2 (09:00→21:00)
[2019-04-21 17:00] VITALS: BP 151/77
[2019-04-21] MEDS: DOCUSATE SODIUM 100 MG CAPSULE PO PRN (17:40)
[2019-04-21] MEDS: HALOPERIDOL 5 MG TABLET PO PRN (17:41)
[2019-04-21] MEDS: LORazepam 2 MG TABLET PO PRN (20:11)
[2019-04-21] MEDS: PALIPERIDONE 3 MG ER TABLET PO SCH (21:00)
[2019-04-22 08:41] VITALS: BP 145/75
[2019-04-22] MEDS: ACETAMINOPHEN 325 MG TABLET PO PRN (08:41)
[2019-04-22] MEDS: NICOTINE 14 MG/24 HOUR PATCH TD PRN (08:42)
[2019-04-22] MEDS: DIVALPROEX SODIUM 500 MG DR TABLET PO SCH ×2 (09:00→21:00)
[2019-04-22 09:13] VITALS: BP 145/75
[2019-04-22] MEDS: PALIPERIDONE 3 MG ER TABLET PO SCH (21:00)
[2019-04-22 22:11] VITALS: BP 168/83
[2019-04-22 22:30] VITALS: BP 164/91
[2019-04-22] MEDS: TraMADol HCL 50 MG TABLET PO PRN (22:30)
[2019-04-22] MEDS: LORazepam 2 MG TABLET PO PRN (22:30)
[2019-04-23 05:22] VITALS: BP 151/93
[2019-04-23 08:56] VITALS: BP 113/62
[2019-04-23] MEDS: DIVALPROEX SODIUM 500 MG DR TABLET PO SCH ×2 (09:00→21:00)
[2019-04-23] MEDS: DOCUSATE SODIUM 100 MG CAPSULE PO PRN (12:54)
[2019-04-23] MEDS: TraMADol HCL 50 MG TABLET PO PRN (12:54)
[2019-04-23 17:08] VITALS: BP 140/91
[2019-04-23] MEDS: HALOPERIDOL 5 MG TABLET PO PRN (17:15)
[2019-04-23] MEDS: LORazepam 2 MG TABLET PO PRN (17:15)
[2019-04-23] MEDS: PALIPERIDONE 3 MG ER TABLET PO SCH (21:00)
[2019-04-24 08:46] VITALS: BP 157/88
[2019-04-24] MEDS: DIVALPROEX SODIUM 500 MG DR TABLET PO SCH (08:49)
[2019-04-24] MEDS: HALOPERIDOL 5 MG TABLET PO PRN (08:51)
[2019-04-24] MEDS: ACETAMINOPHEN 325 MG TABLET PO PRN (08:52)
[2019-04-24] MEDS ORDERED: PALI819S IM (13:30)
[2019-04-24] MEDS: LORazepam 2 MG TABLET PO PRN (16:10)
[2019-04-24] MEDS: PALIPERIDONE 3 MG ER TABLET PO SCH (20:19)
[2019-04-24] MEDS: DIVALPROEX SODIUM 500 MG ER TABLET PO SCH ×2 (20:22→20:28)
[2019-04-25 04:55] VITALS: BP 155/80
[2019-04-25] MEDS: LORazepam 2 MG TABLET PO PRN (09:57)
[2019-04-25 14:32] VITALS: BP 128/66
[2019-04-25 16:30] VITALS: BP 166/92
[2019-04-25] MEDS: HALOPERIDOL 5 MG TABLET PO PRN (16:33)
[2019-04-25] MEDS: IBUPROFEN 400 MG TABLET PO PRN (16:33)
[2019-04-25 16:40] VITALS: BP 146/92
[2019-04-25] MEDS: DOCUSATE SODIUM 100 MG CAPSULE PO PRN (19:14)
[2019-04-25] MEDS: DIVALPROEX SODIUM 500 MG ER TABLET PO SCH (21:00)
[2019-04-25] MEDS: PALIPERIDONE 3 MG ER TABLET PO SCH (21:38)
[2019-04-26 08:20] VITALS: BP 146/84
[2019-04-26] MEDS: TraMADol HCL 50 MG TABLET PO PRN (08:23)
[2019-04-26] MEDS: HALOPERIDOL 5 MG TABLET PO PRN (08:23)
[2019-04-26] MEDS: DOCUSATE SODIUM 100 MG CAPSULE PO PRN (08:23)
[2019-04-26] MEDS: NICOTINE 14 MG/24 HOUR PATCH TD PRN (11:22)
[2019-04-26] MEDS: FAMOTIDINE 20 MG TABLET PO PRN (12:48)
[2019-04-26] MEDS: IBUPROFEN 400 MG TABLET PO PRN (12:49)
[2019-04-26 16:59] VITALS: BP 164/89
[2019-04-26] MEDS ORDERED: INFLUENZA VIRUS VACCINE QVS 2019-20 (3YR+)/PF 60 MCG/0.5 ML SYRINGE IM ONE (18:45)
[2019-04-26] MEDS: PALIPERIDONE 3 MG ER TABLET PO SCH (20:24)
[2019-04-26] MEDS: DIVALPROEX SODIUM 500 MG ER TABLET PO SCH (20:26)
[2019-04-26] MEDS: LORazepam 2 MG TABLET PO PRN (20:47)
[2019-04-27] MEDS: FAMOTIDINE 20 MG TABLET PO PRN (06:48)
[2019-04-27 10:18] VITALS: BP 142/96
[2019-04-27] MEDS: HALOPERIDOL 5 MG TABLET PO PRN (10:31)
[2019-04-27] MEDS: LORazepam 2 MG TABLET PO PRN ×2 (10:31→23:59)
[2019-04-27] MEDS: TraMADol HCL 50 MG TABLET PO PRN (10:34)
[2019-04-27] MEDS: DIVALPROEX SODIUM 500 MG ER TABLET PO SCH (20:48)
[2019-04-27] MEDS: PALIPERIDONE 3 MG ER TABLET PO SCH (20:49)
[2019-04-27 23:10] VITALS: BP 157/78
[2019-04-28 04:23] VITALS: BP 160/72
[2019-04-28 08:39] VITALS: BP 157/72
[2019-04-28] MEDS: TraMADol HCL 50 MG TABLET PO PRN (13:45)
[2019-04-28] MEDS: PALIPERIDONE 3 MG ER TABLET PO SCH (21:00)
[2019-04-28] MEDS: DIVALPROEX SODIUM 500 MG ER TABLET PO SCH (21:00)
[2019-04-29 00:55] VITALS: BP 140/95
[2019-04-29] MEDS: TraMADol HCL 50 MG TABLET PO PRN (00:58)
[2019-04-29] MEDS: LORazepam 2 MG TABLET PO PRN ×2 (08:48→18:41)
[2019-04-29] MEDS: AmLODIPine BESYLATE 2.5 MG TABLET PO SCH (08:48)
[2019-04-29 09:41] VITALS: BP 123/79
[2019-04-29] MEDS: PALIPERIDONE 6 MG ER TABLET PO SCH (13:26)
[2019-04-29 16:43] VITALS: BP 148/73
[2019-04-29] MEDS: ACETAMINOPHEN 325 MG TABLET PO PRN (16:44)
[2019-04-29] MEDS: FAMOTIDINE 20 MG TABLET PO PRN (16:47)
[2019-04-29] MEDS: HALOPERIDOL 5 MG TABLET PO PRN (18:41)
[2019-04-29] MEDS: PALIPERIDONE 3 MG ER TABLET PO SCH (20:29)
[2019-04-29] MEDS: DIVALPROEX SODIUM 500 MG ER TABLET PO SCH (20:29)
[2019-04-30 08:49] VITALS: BP 168/82
[2019-04-30] MEDS: PALIPERIDONE 6 MG ER TABLET PO SCH (09:00)
[2019-04-30] MEDS: FAMOTIDINE 20 MG TABLET PO PRN (09:27)
[2019-04-30] MEDS: AmLODIPine BESYLATE 2.5 MG TABLET PO SCH (09:28)
[2019-04-30] MEDS: TraMADol HCL 50 MG TABLET PO PRN (09:56)
[2019-04-30] MEDS: NICOTINE 14 MG/24 HOUR PATCH TD PRN (09:57)
[2019-04-30 16:57] VITALS: BP 142/96
[2019-04-30] MEDS: PALIPERIDONE 3 MG ER TABLET PO SCH (20:59)
[2019-04-30] MEDS: DIVALPROEX SODIUM 500 MG ER TABLET PO SCH (21:01)
[2019-04-30] MEDS: DOCUSATE SODIUM 100 MG CAPSULE PO PRN (21:02)
[2019-05-01 04:28] VITALS: BP 136/67
[2019-05-01] MEDS: AmLODIPine BESYLATE 2.5 MG TABLET PO SCH (09:19)
[2019-05-01] MEDS: PALIPERIDONE 6 MG ER TABLET PO SCH (09:20)
[2019-05-01 09:35] VITALS: BP 179/70
[2019-05-01] MEDS: TraMADol HCL 50 MG TABLET PO PRN (09:36)
[2019-05-01] MEDS: NICOTINE 14 MG/24 HOUR PATCH TD PRN (09:36)
[2019-05-01 10:39] VITALS: BP 128/80
[2019-05-01 16:19] VITALS: BP 150/85
[2019-05-01] MEDS: LORazepam 2 MG TABLET PO PRN (16:21)
[2019-05-01] MEDS: DIVALPROEX SODIUM 500 MG ER TABLET PO SCH (21:24)
[2019-05-01] MEDS: PALIPERIDONE 3 MG ER TABLET PO SCH (21:24)
[2019-05-02] MEDS: AmLODIPine BESYLATE 2.5 MG TABLET PO SCH (08:16)
[2019-05-02] MEDS: PALIPERIDONE 6 MG ER TABLET PO SCH (08:18)
[2019-05-02 08:19] VITALS: BP 131/73
[2019-05-02] MEDS: ACETAMINOPHEN 325 MG TABLET PO PRN (08:19)
[2019-05-02 11:09] VITALS: BP 158/83
[2019-05-02] MEDS: TraMADol HCL 50 MG TABLET PO PRN (11:09)
[2019-05-02 12:10] VITALS: BP 127/85
[2019-05-02] MEDS: LORazepam 2 MG TABLET PO PRN (16:05)
[2019-05-02 18:53] VITALS: BP 130/87
[2019-05-02] MEDS: DIVALPROEX SODIUM 500 MG ER TABLET PO SCH (20:36)
[2019-05-02] MEDS: PALIPERIDONE 3 MG ER TABLET PO SCH (20:36)
[2019-05-03 02:24] VITALS: BP 149/77
[2019-05-03] MEDS: AmLODIPine BESYLATE 2.5 MG TABLET PO SCH (08:53)
[2019-05-03] MEDS: PALIPERIDONE 6 MG ER TABLET PO SCH (08:54)
[2019-05-03 12:20] VITALS: BP 143/74
[2019-05-03] MEDS: TraMADol HCL 50 MG TABLET PO PRN (13:03)
[2019-05-03] MEDS: LORazepam 2 MG TABLET PO PRN (16:03)
[2019-05-03 17:45] VITALS: BP 114/75
[2019-05-03] MEDS: PALIPERIDONE 3 MG ER TABLET PO SCH (20:07)
[2019-05-03] MEDS: DIVALPROEX SODIUM 500 MG ER TABLET PO SCH (20:07)
[2019-05-04 06:37] VITALS: BP 134/85
[2019-05-04] MEDS: AmLODIPine BESYLATE 2.5 MG TABLET PO SCH (08:16)
[2019-05-04] MEDS: PALIPERIDONE 6 MG ER TABLET PO SCH (08:16)
[2019-05-04] MEDS: NICOTINE 14 MG/24 HOUR PATCH TD PRN (09:52)
[2019-05-04 09:57] VITALS: BP 167/88
[2019-05-04] MEDS: LORazepam 2 MG TABLET PO PRN (16:20)
[2019-05-04] MEDS: HALOPERIDOL 5 MG TABLET PO PRN (16:20)
[2019-05-04 17:42] VITALS: BP 152/89
[2019-05-04] MEDS: PALIPERIDONE 3 MG ER TABLET PO SCH (20:18)
[2019-05-04] MEDS: DIVALPROEX SODIUM 500 MG ER TABLET PO SCH (20:18)
[2019-05-05] MEDS: IBUPROFEN 400 MG TABLET PO PRN (06:42)
[2019-05-05 06:45] VITALS: BP 117/78
[2019-05-05 08:31] VITALS: BP 154/98
[2019-05-05] MEDS: PALIPERIDONE 6 MG ER TABLET PO SCH (09:31)
[2019-05-05] MEDS: LORazepam 2 MG TABLET PO PRN (09:31)
[2019-05-05] MEDS: AmLODIPine BESYLATE 2.5 MG TABLET PO SCH (09:32)
[2019-05-05] MEDS ORDERED: DIVA500T52 PO (09:57)
[2019-05-05] MEDS ORDERED: PALI6 PO (10:11)
[2019-05-05] MEDS ORDERED: AMLO5TAB9 PO (11:43)
[2019-05-05] MEDS: FAMOTIDINE 20 MG TABLET PO PRN (12:47)
== END 2019-05-05 16:30 | disposition home or self-care (01) | DRG 885 ==
LOC: EMS 11:30 → 3EI 16:18
PROVIDERS: ADMIT Psychiatry & Neurology Child & Adolescent Psychiatry; ATTEND Psychiatry & Neurology Child & Adolescent Psychiatry
DX: F25.9 Schizoaffective disorder, unspecified (principal); B18.2 Chronic viral hepatitis C; E03.9 Hypothyroidism, unspecified; E11.9 Type 2 diabetes mellitus without complications; E78.5 Hyperlipidemia, unspecified; F10.10 Alcohol abuse, uncomplicated; F15.90 Other stimulant use, unspecified, uncomplicated; F17.200 Nicotine dependence, unspecified, uncomplicated; F41.1 Generalized anxiety disorder; I10 Essential (primary) hypertension; J44.9 Chronic obstructive pulmonary disease, unspecified; M10.9 Gout, unspecified; N31.9 Neuromuscular dysfunction of bladder, unspecified; Z91.14 Patient's other noncompliance with medication regimen; Z23 Encounter for immunization
CPT/HCPCS: 83036; 84439; 84443; 90686; G0480; J1200; J1630; J2060

== ENCOUNTER 2019-09-29 22:17 | Inpatient (IN) | payer MEDICAID ==
[~2019-09-29] VITALS: Ht 162.6 cm; Wt 77.6 kg
[~2019-09-29 22:17] MED LIST changes: +AMLO5TAB9 PO; -DIVA-78 PO; +DIVA-80 PO; -PALI3 PO; +PALI3TAB14 PO; +PALI6TAB15 PO; +PALI819S IM
[2019-09-29] MEDS ORDERED: ZOLPIDEM TARTRATE 10 MG TABLET PO PRN (22:45)
[2019-09-29] MEDS ORDERED: HALOPERIDOL 5 MG TABLET PO PRN (22:45)
[2019-09-29 23:13] VITALS: BP 136/81
[2019-09-29] MEDS ORDERED: PNEUMOCOCCAL VACCINE POLYVALENT 0.5 ML VIAL [PPSV23] IM ONE (23:45)
[2019-09-30 01:05] VITALS: BP 138/67
[2019-09-30 04:00] VITALS: BP 122/73
[2019-09-30 06:53] LABS: GLUCOMETER DEV NAME(LOC) BV3S.; GLUCOSE,POINT OF CARE 115 MG/DL (70-110)
[2019-09-30 07:41] LABS: BASOPHILS % (AUTO) 0.7 % (0.0-2.0); EOSINOPHILS % (AUTO) 3.9 % (1.0-6.0); HEMOGLOBIN 12.5 g/dL (12.0-16.0); LYMPHOCYTES # (AUTO) 1.7 K/uL (1.0-4.8); LYMPHOCYTES % (AUTO) 27.9 % (22.0-44.0); MEAN CORPUSCULAR HEMOGLOBIN 29.7 pg (26.0-34.0); MEAN CORPUSCULAR HGB CONC 32.9 G/dL (31.0-37.0); MEAN CORPUSCULAR VOLUME 90 fL (80-100); MONOCYTES # (AUTO) 0.8 K/uL (0.1-1.0); MONOCYTES % (AUTO) 13.3 % (2.0-9.0); NEUTROPHILS # (AUTO) 3.3 K/uL (1.8-7.7); NEUTROPHILS % (AUTO) 54.2 % (40.0-70.0); PLATELET COUNT (AUTO) 217 K/uL (150-450); RED BLOOD CELL COUNT(AUTO) 4.21 MIL/uL (4.00-5.20); RED CELL DISTRIBUTION WIDTH 13.9 % (11.5-14.5)
[2019-09-30] MEDS ORDERED: GuaiFENesin/D-METHORPHAN [SUGAR-FREE] 200-20MG/10 ML SYRUP UDCUP PO PRN (08:00)
[2019-09-30] MEDS ORDERED: CloNIDine HCL 0.1 MG TABLET PO PRN (08:00)
[2019-09-30] MEDS ORDERED: DOCUSATE SODIUM 100 MG CAPSULE PO PRN (08:00)
[2019-09-30] MEDS ORDERED: ALBUTEROL SULFATE HFA 90 MCG/PUFF 8 GM INHALER IH PRN (08:00)
[2019-09-30] MEDS ORDERED: PETROLATUM,WHITE 28 GM JELLY TP PRN (08:00)
[2019-09-30] MEDS ORDERED: MAGNESIUM HYDROXIDE SUSPENSION 30 ML UDCUP PO PRN (08:00)
[2019-09-30 08:07] LABS: HEMOGLOBIN A1C 5.2 % (3.8-5.6)
[2019-09-30 08:18] LABS: ALANINE AMINOTRANSFERASE 46 U/L (12-78); ALBUMIN 2.9 g/dL (3.4-5.0); ALKALINE PHOSPHATASE 121 U/L (46-116); ANION GAP 9 mmol/L (8-16); ASPARTATE AMINOTRANSFERASE 22 U/L (15-37); BILIRUBIN,TOTAL 0.3 mg/dL (0.1-1.0); CALCIUM, TOTAL 8.1 mg/dL (8.8-10.5); CARBON DIOXIDE 28 mmol/L (22-29); CHLORIDE 107 mmol/L (98-107); CHOL/HDL RATIO 4.5 (3.9-5.7); CHOLESTEROL 126 mg/dL (131-200); FREE T4 (FREE THYROXINE) 0.98 ng/dL (0.76-1.46); GLOMERULAR FILTR. RATE CALC > 60 mL/min (>60); GLUCOSE,RANDOM 104 mg/dL (70-110); HDL CHOLESTEROL 28 mg/dL (40-60); LDL CHOL (CALC.) 81 mg/dL (0-130); POTASSIUM 3.8 mmol/L (3.5-5.1); SODIUM SERUM 144 mmol/L (136-145); THYROID STIMULATING HORMONE 1.08 uIU/mL (0.36-3.74); TOTAL PROTEIN, SERUM 6.2 g/dL (6.4-8.2); TRIGLYCERIDES 84 mg/dL (15-150); UREA NITROGEN, BLOOD 6 mg/dL (7-18)
[2019-09-30 08:27] VITALS: BP 143/63
[2019-09-30 16:18] VITALS: BP 124/68
[2019-09-30] MEDS: LORazepam 2 MG TABLET PO PRN (16:20)
[2019-10-01 02:25] VITALS: BP 120/65
[2019-10-01 08:17] LABS: AMPHET/METH SCREEN,URINE NEGATIVE (NEGATIVE); BARBITURATE SCREEN, URINE NEGATIVE (NEGATIVE); BENZODIAZEPINES SCREEN,URINE NEGATIVE (NEGATIVE); CANNABINOID SCREEN,URINE NEGATIVE (NEGATIVE); COCAINE SCREEN,URINE NEGATIVE (NEGATIVE); METHADONE SCREEN, URINE NEGATIVE (NEGATIVE); OPIATE SCREEN,URINE NEGATIVE (NEGATIVE)
[2019-10-01 08:20] LABS: BILIRUBIN,URINE NEGATIVE (NEGATIVE); GLUCOSE, URINE (UA) NEGATIVE (NEGATIVE); KETONES,URINE NEGATIVE (NEGATIVE); LEUKOCYTE ESTERASE ,URINE SMALL (NEGATIVE); NITRATE,URINE NEGATIVE (NEGATIVE); OCCULT BLOOD,URINE NEGATIVE (NEGATIVE); PROTEIN,URINE NEGATIVE (NEGATIVE)
[2019-10-01 08:26] LABS: PHENCYCLIDINE SCREEN,URINE NEGATIVE (NEGATIVE)
[2019-10-01 08:36] LABS: APPEARANCE,URINE HAZY (CLEAR)
[2019-10-01 08:37] LABS: BACTERIA,URINE None Seen /HPF (None Seen); RBC,URINE None Seen /HPF (0-2); SQUAMOUS EPITHELIAL CELL,UR Moderate /LPF (None Seen)
[2019-10-01 08:49] VITALS: BP 118/70
[2019-10-01] MEDS: ACETAMINOPHEN 325 MG TABLET PO PRN ×2 (08:49→19:43)
[2019-10-01] MEDS: LOPERAMIDE HCL 2 MG CAPSULE PO PRN (12:39)
[2019-10-01] MEDS: IBUPROFEN 400 MG TABLET PO PRN (16:01)
[2019-10-01 16:21] VITALS: BP 148/89
[2019-10-01] MEDS: LORazepam 2 MG TABLET PO PRN (19:39)
[2019-10-01] MEDS: NICOTINE 14 MG/24 HOUR PATCH TD PRN (20:00)
[2019-10-01] MEDS: PALIPERIDONE 3 MG ER TABLET PO SCH (21:00)
[2019-10-01] MEDS: DIVALPROEX SODIUM 500 MG DR TABLET PO SCH (21:00)
[2019-10-02 04:52] VITALS: BP 128/86
[2019-10-02 08:26] VITALS: BP 131/75
[2019-10-02] MEDS: DIVALPROEX SODIUM 500 MG DR TABLET PO SCH (09:00)
[2019-10-02] MEDS: PALIPERIDONE 3 MG ER TABLET PO SCH ×2 (09:00→21:00)
[2019-10-02] MEDS: VALPROIC ACID 250 MG/5 ML SYRUP UDCUP PO SCH ×3 (10:00→21:13)
[2019-10-02] MEDS: LOPERAMIDE HCL 2 MG CAPSULE PO PRN ×2 (10:27→21:13)
[2019-10-02] MEDS: IBUPROFEN 400 MG TABLET PO PRN (15:59)
[2019-10-02] MEDS: MAG HYDROX/AL HYDROX/SIMETH ES 30 ML SUSPENSION UDCUP PO PRN (16:16)
[2019-10-02 17:00] VITALS: BP 130/80
[2019-10-02] MEDS: LORazepam 2 MG TABLET PO PRN (21:13)
[2019-10-02] MEDS: NICOTINE 14 MG/24 HOUR PATCH TD PRN (21:13)
[2019-10-02] MEDS: ACETAMINOPHEN 325 MG TABLET PO PRN (21:14)
[2019-10-03 05:01] VITALS: BP 126/70
[2019-10-03 08:16] VITALS: BP 144/90
[2019-10-03] MEDS: VALPROIC ACID 250 MG/5 ML SYRUP UDCUP PO SCH ×3 (09:00→21:13)
[2019-10-03] MEDS: PALIPERIDONE 3 MG ER TABLET PO SCH ×2 (09:00→21:00)
[2019-10-03] MEDS: IBUPROFEN 400 MG TABLET PO PRN (13:47)
[2019-10-03 16:16] VITALS: BP 138/80
[2019-10-04 01:34] VITALS: BP 156/78
[2019-10-04] MEDS: IBUPROFEN 400 MG TABLET PO PRN ×2 (01:34→16:01)
[2019-10-04] MEDS: MAG HYDROX/AL HYDROX/SIMETH ES 30 ML SUSPENSION UDCUP PO PRN (08:11)
[2019-10-04] MEDS: PALIPERIDONE 3 MG ER TABLET PO SCH ×2 (08:13→20:02)
[2019-10-04] MEDS: VALPROIC ACID 250 MG/5 ML SYRUP UDCUP PO SCH ×2 (08:21→20:02)
[2019-10-04 08:34] VITALS: BP 122/73
[2019-10-04] MEDS: ACETAMINOPHEN 325 MG TABLET PO PRN (09:33)
[2019-10-04] MEDS ORDERED: OXYBUTYNIN CHLORIDE 5 MG TABLET PO SCH (14:15)
[2019-10-04] MEDS: FAMOTIDINE 20 MG TABLET PO PRN (16:01)
[2019-10-04] MEDS: LORazepam 2 MG TABLET PO PRN (16:01)
[2019-10-04] MEDS: OXYBUTYNIN CHLORIDE 5 MG TABLET PO SCH (16:02)
[2019-10-04] MEDS: NICOTINE 21 MG/24 HOUR PATCH TD PRN (16:02)
[2019-10-04 16:23] VITALS: BP 164/101
[2019-10-05 05:46] VITALS: BP 132/75
[2019-10-05 08:26] VITALS: BP 143/70
[2019-10-05] MEDS: PALIPERIDONE 3 MG ER TABLET PO SCH ×2 (09:00→21:00)
[2019-10-05] MEDS: AmLODIPine BESYLATE 5 MG TABLET PO SCH (09:22)
[2019-10-05] MEDS: VALPROIC ACID 250 MG/5 ML SYRUP UDCUP PO SCH ×2 (09:33→20:30)
[2019-10-05] MEDS: FAMOTIDINE 20 MG TABLET PO PRN (12:31)
[2019-10-05 16:17] VITALS: BP 134/81
[2019-10-05] MEDS: LOPERAMIDE HCL 2 MG CAPSULE PO PRN (16:38)
[2019-10-05] MEDS: MAG HYDROX/AL HYDROX/SIMETH ES 30 ML SUSPENSION UDCUP PO PRN (16:38)
[2019-10-05] MEDS: OXYBUTYNIN CHLORIDE 5 MG TABLET PO SCH (16:38)
[2019-10-05] MEDS: IBUPROFEN 400 MG TABLET PO PRN (21:36)
[2019-10-05] MEDS: LORazepam 2 MG TABLET PO PRN (22:52)
[2019-10-06 03:10] VITALS: BP 127/78
[2019-10-06 08:28] VITALS: BP 146/60
[2019-10-06] MEDS: PALIPERIDONE 3 MG ER TABLET PO SCH ×2 (09:00→21:00)
[2019-10-06] MEDS: AmLODIPine BESYLATE 5 MG TABLET PO SCH (09:47)
[2019-10-06] MEDS: VALPROIC ACID 250 MG/5 ML SYRUP UDCUP PO SCH ×2 (09:47→21:25)
[2019-10-06] MEDS: LOPERAMIDE HCL 2 MG CAPSULE PO PRN ×2 (09:59→21:26)
[2019-10-06] MEDS: FAMOTIDINE 20 MG TABLET PO PRN (09:59)
[2019-10-06 10:45] VITALS: BP 134/72
[2019-10-06] MEDS: ONDANSETRON HCL 4 MG TABLET PO PRN ×2 (12:41→16:47)
[2019-10-06 16:11] VITALS: BP 131/82
[2019-10-06] MEDS: OXYBUTYNIN CHLORIDE 5 MG TABLET PO SCH (16:20)
[2019-10-06] MEDS: IBUPROFEN 400 MG TABLET PO PRN (16:25)
[2019-10-06] MEDS: NICOTINE 21 MG/24 HOUR PATCH TD PRN (16:26)
[2019-10-06] MEDS: ACETAMINOPHEN 325 MG TABLET PO PRN (21:25)
[2019-10-07 05:10] VITALS: BP 127/76
[2019-10-07] MEDS: PALIPERIDONE 3 MG ER TABLET PO SCH (08:11)
[2019-10-07] MEDS: AmLODIPine BESYLATE 5 MG TABLET PO SCH (08:11)
[2019-10-07] MEDS: VALPROIC ACID 250 MG/5 ML SYRUP UDCUP PO SCH (08:11)
[2019-10-07 08:30] VITALS: BP 133/86
[2019-10-07] MEDS: IBUPROFEN 400 MG TABLET PO PRN (09:05)
[2019-10-07] MEDS: LOPERAMIDE HCL 2 MG CAPSULE PO PRN (09:05)
[2019-10-07] MEDS: ONDANSETRON HCL 4 MG TABLET PO PRN (09:05)
[2019-10-07] MEDS ORDERED: DIVA-112 PO (13:48)
[2019-10-07] MEDS ORDERED: PALI819S IM (13:48)
[2019-10-07] MEDS ORDERED: OXYB5XL PO ×2 (16:13→16:17)
[2019-10-07 16:17] VITALS: BP 142/70
[2019-10-07] MEDS ORDERED: VALP250C48 PO (16:26)
[2019-10-07] MEDS: OXYBUTYNIN CHLORIDE 5 MG TABLET PO SCH (16:49)
== END 2019-10-07 17:40 | disposition home or self-care (01) | DRG 885 ==
LOC: B3A 23:24
DX: F25.0 Schizoaffective disorder, bipolar type (principal); B19.20 Unspecified viral hepatitis C without hepatic coma; R45.851 Suicidal ideations; F10.10 Alcohol abuse, uncomplicated; I10 Essential (primary) hypertension; J44.9 Chronic obstructive pulmonary disease, unspecified; M10.9 Gout, unspecified; E78.5 Hyperlipidemia, unspecified; E03.9 Hypothyroidism, unspecified; E11.9 Type 2 diabetes mellitus without complications; Z79.899 Other long term (current) drug therapy
CPT/HCPCS: 80307; 83036; 84439; 84443; 87081; Q0162

== ENCOUNTER 2020-03-22 23:09 | Emergency (ER) | payer MEDICAID, OTHER ==
[~2020-03-22 23:09] MED LIST changes: +AMLO-257 PO; -AMLO5TAB9 PO; -DIVA-80 PO; +OXYB5XL PO; -PALI3TAB14 PO; -PALI6TAB15 PO; +VALP250C48 PO
== END 2020-03-23 01:00 | disposition left against medical advice (07) ==
LOC: EMS 23:11
DX: R45.851 Suicidal ideations (principal); Z53.21 Procedure and treatment not carried out due to patient leaving prior to being seen by health care provider

== ENCOUNTER 2021-07-26 16:42 | Inpatient (IN) | payer MEDICAID, OTHER ==
[~2021-07-26] VITALS: Ht 157.5 cm; Wt 73.3 kg
[~2021-07-26 16:42] MED LIST changes: +OXYB-34 PO; -OXYB5XL PO
[2021-07-26 17:58] LABS: BASOPHILS % (AUTO) 0.5 % (0.0-2.0); EOSINOPHILS % (AUTO) 1.5 % (1.0-6.0); HEMATOCRIT 35.9 % (36-46); HEMOGLOBIN 12.2 g/dL (12.0-16.0); LYMPHOCYTES # (AUTO) 1.5 K/uL (1.0-4.8); LYMPHOCYTES % (AUTO) 19.2 % (22.0-44.0); MEAN CORPUSCULAR HEMOGLOBIN 30.3 pg (26.0-34.0); MEAN CORPUSCULAR VOLUME 89 fL (80-100); MONOCYTES # (AUTO) 0.9 K/uL (0.1-1.0); MONOCYTES % (AUTO) 11.6 % (2.0-9.0); NEUTROPHILS # (AUTO) 5.2 K/uL (1.8-7.7); NEUTROPHILS % (AUTO) 67.2 % (40.0-70.0); PLATELET COUNT (AUTO) 176 K/uL (150-450); RED BLOOD CELL COUNT(AUTO) 4.02 MIL/uL (4.00-5.20); RED CELL DISTRIBUTION WIDTH 14.6 % (11.5-14.5)
[2021-07-26 18:11] LABS: ANION GAP 7 mmol/L (8-16); CARBON DIOXIDE 31 mmol/L (22-29); CHLORIDE 103 mmol/L (98-107); CREATININE 0.64 mg/dL (0.60-1.30); GLOMERULAR FILTR. RATE CALC > 60 mL/min (>60); GLUCOSE,RANDOM 98 mg/dL (70-110); SODIUM SERUM 141 mmol/L (136-145); UREA NITROGEN, BLOOD 13 mg/dL (7-18)
[2021-07-26 18:16] LABS: ALANINE AMINOTRANSFERASE 19 U/L (12-78); ALBUMIN 4.1 g/dL (3.4-5.0); ALKALINE PHOSPHATASE 79 U/L (46-116); ASPARTATE AMINOTRANSFERASE 20 U/L (15-37); BILIRUBIN,TOTAL 0.6 mg/dL (0.1-1.0); TOTAL PROTEIN, SERUM 7.3 g/dL (6.4-8.2); VALPROIC ACID 13 mcg/mL (50-100)
[2021-07-26 20:21] LABS: COVID AG,FIA SOURCE NASAL SWAB
[2021-07-26 21:58] VITALS: BP 163/77
[2021-07-26] MEDS: ZOLPIDEM TARTRATE 10 MG TABLET PO PRN (22:22)
[2021-07-26] MEDS: NICOTINE 14 MG/24 HOUR PATCH TD SCH (22:27)
[2021-07-27] MEDS ORDERED: ONDANSETRON HCL 4 MG TABLET PO PRN (08:15)
[2021-07-27] MEDS ORDERED: OMEPRAZOLE 20 MG CAPSULE PO PRN (08:15)
[2021-07-27] MEDS ORDERED: DOCUSATE SODIUM 100 MG CAPSULE PO PRN (08:15)
[2021-07-27] MEDS ORDERED: BENZOCAINE/MENTHOL LOZENGE PO PRN (08:15)
[2021-07-27] MEDS ORDERED: ALBUTEROL SULFATE HFA 90 MCG/PUFF 8 GM INHALER IH PRN (08:15)
[2021-07-27] MEDS ORDERED: MAGNESIUM HYDROXIDE SUSPENSION 30 ML UDCUP PO PRN (08:15)
[2021-07-27] MEDS ORDERED: PETROLATUM,WHITE 28 GM JELLY TP PRN (08:15)
[2021-07-27] MEDS ORDERED: BACITRACIN 28 GM OINTMENT TP PRN (08:15)
[2021-07-27] MEDS ORDERED: ACETAMINOPHEN 325 MG TABLET PO PRN (08:15)
[2021-07-27] MEDS ORDERED: MAG HYDROX/AL HYDROX/SIMETH ES 30 ML SUSPENSION UDCUP PO PRN (08:15)
[2021-07-27] MEDS ORDERED: CloNIDine HCL 0.1 MG TABLET PO PRN (08:15)
[2021-07-27 10:25] VITALS: BP 120/76
[2021-07-27] MEDS: AmLODIPine BESYLATE 5 MG TABLET PO SCH (10:26)
[2021-07-27] MEDS: NICOTINE 14 MG/24 HOUR PATCH TD SCH (10:27)
[2021-07-27] MEDS: LORazepam 2 MG TABLET PO PRN (12:40)
[2021-07-27 16:00] VITALS: BP 132/77
[2021-07-27] MEDS: OXYBUTYNIN CHLORIDE 5 MG ER TABLET PO SCH (16:51)
[2021-07-27] MEDS: PALIPERIDONE 3 MG ER TABLET PO SCH ×2 (21:00→21:17)
[2021-07-27] MEDS: DIVALPROEX SODIUM 500 MG DR TABLET PO SCH ×2 (21:00→21:13)
[2021-07-28 08:55] VITALS: BP 129/76
[2021-07-28] MEDS: LORazepam 2 MG TABLET PO PRN (08:58)
[2021-07-28] MEDS: HALOPERIDOL 5 MG TABLET PO PRN (08:58)
[2021-07-28] MEDS: IBUPROFEN 600 MG TABLET PO PRN (08:59)
[2021-07-28] MEDS: LOPERAMIDE HCL 2 MG CAPSULE PO PRN (08:59)
[2021-07-28] MEDS: AmLODIPine BESYLATE 5 MG TABLET PO SCH (09:00)
[2021-07-28] MEDS: DIVALPROEX SODIUM 500 MG DR TABLET PO SCH ×2 (09:00→20:05)
[2021-07-28] MEDS: NICOTINE 14 MG/24 HOUR PATCH TD SCH (09:00)
[2021-07-28] MEDS: OXYBUTYNIN CHLORIDE 5 MG ER TABLET PO SCH (16:05)
[2021-07-28 17:21] VITALS: BP 155/70
[2021-07-28] MEDS: PALIPERIDONE 3 MG ER TABLET PO SCH (20:04)
[2021-07-29 07:58] LABS: AMPHET/METH SCREEN,URINE NEGATIVE (NEGATIVE); BARBITURATE SCREEN, URINE NEGATIVE (NEGATIVE); BENZODIAZEPINES SCREEN,URINE NEGATIVE (NEGATIVE); CANNABINOID SCREEN,URINE NEGATIVE (NEGATIVE); COCAINE SCREEN,URINE NEGATIVE (NEGATIVE); METHADONE SCREEN, URINE NEGATIVE (NEGATIVE); OPIATE SCREEN,URINE NEGATIVE (NEGATIVE)
[2021-07-29 08:01] LABS: PHENCYCLIDINE SCREEN,URINE NEGATIVE (NEGATIVE)
[2021-07-29 08:20] VITALS: BP 131/76
[2021-07-29 08:21] LABS: APPEARANCE,URINE CLEAR (CLEAR); BILIRUBIN,URINE NEGATIVE (NEGATIVE); GLUCOSE, URINE (UA) NEGATIVE (NEGATIVE); KETONES,URINE NEGATIVE (NEGATIVE); LEUKOCYTE ESTERASE ,URINE NEGATIVE (NEGATIVE); NITRATE,URINE NEGATIVE (NEGATIVE); OCCULT BLOOD,URINE NEGATIVE (NEGATIVE); PH,URINE 5.5 (5.0-8.0); PROTEIN,URINE NEGATIVE (NEGATIVE); SPECIFIC GRAVITIY, URINE 1.008 (1.003-1.030); UROBILINOGEN,URINE <=1.0 mg/dL (<=1.0)
[2021-07-29] MEDS: LORazepam 2 MG TABLET PO PRN ×2 (08:24→17:08)
[2021-07-29] MEDS: AmLODIPine BESYLATE 5 MG TABLET PO SCH (08:24)
[2021-07-29] MEDS: DIVALPROEX SODIUM 500 MG DR TABLET PO SCH ×2 (08:24→20:15)
[2021-07-29] MEDS: LOPERAMIDE HCL 2 MG CAPSULE PO PRN (08:24)
[2021-07-29] MEDS: NICOTINE 14 MG/24 HOUR PATCH TD SCH (08:24)
[2021-07-29] MEDS: HALOPERIDOL 5 MG TABLET PO PRN (08:25)
[2021-07-29] MEDS: IBUPROFEN 600 MG TABLET PO PRN (08:25)
[2021-07-29 17:08] VITALS: BP 129/75
[2021-07-29] MEDS: OXYBUTYNIN CHLORIDE 5 MG ER TABLET PO SCH (17:08)
[2021-07-29] MEDS: PALIPERIDONE 3 MG ER TABLET PO SCH (20:15)
[2021-07-29] MEDS: ZOLPIDEM TARTRATE 10 MG TABLET PO PRN (20:15)
[2021-07-30 08:00] VITALS: BP 109/54
[2021-07-30] MEDS: DIVALPROEX SODIUM 500 MG DR TABLET PO SCH ×2 (09:28→20:32)
[2021-07-30] MEDS: NICOTINE 14 MG/24 HOUR PATCH TD SCH (09:28)
[2021-07-30] MEDS: AmLODIPine BESYLATE 5 MG TABLET PO SCH (09:28)
[2021-07-30 16:39] VITALS: BP 148/79
[2021-07-30] MEDS: OXYBUTYNIN CHLORIDE 5 MG ER TABLET PO SCH (16:49)
[2021-07-30] MEDS: HALOPERIDOL 5 MG TABLET PO PRN (16:53)
[2021-07-30] MEDS: LORazepam 2 MG TABLET PO PRN (16:54)
[2021-07-30] MEDS: PALIPERIDONE 3 MG ER TABLET PO SCH (20:32)
[2021-07-31 08:00] VITALS: BP 115/63
[2021-07-31] MEDS: AmLODIPine BESYLATE 5 MG TABLET PO SCH (08:46)
[2021-07-31] MEDS: DIVALPROEX SODIUM 500 MG DR TABLET PO SCH ×2 (08:46→20:07)
[2021-07-31] MEDS: NICOTINE 14 MG/24 HOUR PATCH TD SCH (08:47)
[2021-07-31] MEDS ORDERED: PALIPERIDONE PALMITATE 234 MG/1.5 ML SYRINGE IM SCH (09:00)
[2021-07-31] MEDS: LOPERAMIDE HCL 2 MG CAPSULE PO PRN (10:25)
[2021-07-31 11:13] VITALS: BP 122/72
[2021-07-31] MEDS: IBUPROFEN 600 MG TABLET PO PRN ×2 (11:13→19:28)
[2021-07-31] MEDS: OXYBUTYNIN CHLORIDE 5 MG ER TABLET PO SCH (16:08)
[2021-07-31 16:53] VITALS: BP 114/81
[2021-07-31] MEDS: PALIPERIDONE 3 MG ER TABLET PO SCH (20:07)
[2021-07-31] MEDS ORDERED: DIVA-112 PO (22:01)
[2021-07-31] MEDS ORDERED: PALI234D IM (22:01)
[2021-07-31] MEDS: HALOPERIDOL 5 MG TABLET PO PRN (22:03)
[2021-08-01] MEDS: DIVALPROEX SODIUM 500 MG DR TABLET PO SCH (08:17)
[2021-08-01] MEDS: AmLODIPine BESYLATE 5 MG TABLET PO SCH (08:17)
[2021-08-01] MEDS: LOPERAMIDE HCL 2 MG CAPSULE PO PRN (08:17)
[2021-08-01] MEDS: NICOTINE 14 MG/24 HOUR PATCH TD SCH (08:22)
[2021-08-01 09:25] VITALS: BP 134/61
[2021-08-01] MEDS: IBUPROFEN 600 MG TABLET PO PRN (11:30)
[2021-08-01] MEDS ORDERED: AMLO-257 PO (21:48)
[2021-08-01] MEDS ORDERED: OXYB-34 PO (21:48)
== END 2021-08-01 13:30 | disposition home or self-care (01) | DRG 750 ==
LOC: EMS 16:42 → EDUNIT# 16:42 → 3EI 21:47
PROVIDERS: ADMIT Psychiatry & Neurology Psychiatry; ATTEND Psychiatry & Neurology Psychiatry
DX: F25.0 Schizoaffective disorder, bipolar type (principal); R45.850 Homicidal ideations; R45.851 Suicidal ideations; E03.9 Hypothyroidism, unspecified; Z20.822 Contact with and (suspected) exposure to COVID-19; I10 Essential (primary) hypertension; J31.0 Chronic rhinitis; J44.9 Chronic obstructive pulmonary disease, unspecified; M19.90 Unspecified osteoarthritis, unspecified site; M10.9 Gout, unspecified; R32 Unspecified urinary incontinence; Z72.0 Tobacco use; Z71.6 Tobacco abuse counseling; Z90.49 Acquired absence of other specified parts of digestive tract; Z88.5 Allergy status to narcotic agent; Z88.8 Allergy status to other drugs, medicaments and biological substances
CPT/HCPCS: 80053; 80164; 80307; 81003; 85025; 87081; 99285; G0480

== ENCOUNTER 2024-04-02 08:49 | Inpatient (IN) | payer MEDICARE, MEDICAID ==
[~2024-04-02] VITALS: Ht 157.5 cm; Wt 71.7 kg
[~2024-04-02 08:49] MED LIST changes: +ALLO-45 PO; +BENZ-247 PO; +CHOL25TA4 PO; +DIVA-112 PO; +FAMO20 PO; +LETR2.5 PO; +MELA5TAB40 PO; +PALI234D IM; -PALI819S IM; -VALP250C48 PO
[2024-04-02 09:47] VITALS: O2SAT 98
[2024-04-02 10:24] LABS: BASOPHILS % (AUTO) 0.6 % (0.0-2.0); EOSINOPHILS % (AUTO) 0.9 % (1.0-6.0); HEMATOCRIT 36.3 % (36-46); HEMOGLOBIN 12.2 g/dL (12.0-16.0); LYMPHOCYTES # (AUTO) 0.8 K/uL (1.0-4.8); LYMPHOCYTES % (AUTO) 13.1 % (22.0-44.0); MEAN CORPUSCULAR HEMOGLOBIN 32.2 pg (26.0-34.0); MEAN CORPUSCULAR HGB CONC 33.7 G/dL (31.0-37.0); MEAN CORPUSCULAR VOLUME 96 fL (80-100); MONOCYTES # (AUTO) 0.6 K/uL (0.1-1.0); MONOCYTES % (AUTO) 9.1 % (2.0-9.0); NEUTROPHILS # (AUTO) 4.7 K/uL (1.8-7.7); NEUTROPHILS % (AUTO) 76.3 % (40.0-70.0); PLATELET COUNT (AUTO) 214 K/uL (150-450); RED CELL DISTRIBUTION WIDTH 13.7 % (11.5-14.5); WHITE BLOOD COUNT (AUTO) 6.2 K/uL (4.5-11.0)
[2024-04-02 10:31] LABS: ANION GAP 7 mmol/L (8-16); CALCIUM, TOTAL 8.9 mg/dL (8.8-10.5); CARBON DIOXIDE 31 mmol/L (22-29); CHLORIDE 101 mmol/L (98-107); GLOMERULAR FILTR. RATE CALC > 60 mL/min (>60); GLUCOSE,RANDOM 83 mg/dL (70-110); POTASSIUM 3.9 mmol/L (3.5-5.1); SODIUM SERUM 139 mmol/L (136-145); UREA NITROGEN, BLOOD 9 mg/dL (7-18)
[2024-04-02 10:37] LABS: ALANINE AMINOTRANSFERASE 19 U/L (12-78); ALBUMIN 3.2 g/dL (3.4-5.0); ALKALINE PHOSPHATASE 79 U/L (46-116); ASPARTATE AMINOTRANSFERASE 19 U/L (15-37); BILIRUBIN,TOTAL 0.3 mg/dL (0.1-1.0); TOTAL PROTEIN, SERUM 6.7 g/dL (6.4-8.2)
[2024-04-02 10:47] LABS: ALCOHOL, BLOOD (SERUM) < 3 mg/dL (0-10)
[2024-04-02 11:00] LABS: COVID AG,FIA SOURCE NASAL SWAB
[2024-04-02] MEDS ORDERED: MAGNESIUM HYDROXIDE SUSPENSION 30 ML UDCUP PO PRN (11:15)
[2024-04-02] MEDS ORDERED: MAG HYDROX/ALUMINUM HYD/SIMETH ES 30 ML SUSPENSION UDCUP PO PRN (11:15)
[2024-04-02] MEDS ORDERED: LOPERAMIDE HCL 2 MG CAPSULE PO PRN (11:15)
[2024-04-02] MEDS ORDERED: HALOPERIDOL 5 MG TABLET PO PRN (11:15)
[2024-04-02 11:31] LABS: SARS-COV2 (COVID) ANTIGEN,FIA Negative (Negative)
[2024-04-02] MEDS: BENZTROPINE MESYLATE 1 MG TABLET PO SCH (16:29)
[2024-04-02 16:32] VITALS: BP 156/73; PULSE 86; RESP 17; TEMP 97; O2SAT 96
[2024-04-02] MEDS: FAMOTIDINE 20 MG TABLET PO SCH (16:32)
[2024-04-02] MEDS: ACETAMINOPHEN 325 MG TABLET PO PRN (16:34)
[2024-04-02] MEDS ORDERED: INFLUENZA VIRUS VACCINE TVS (6MO+) 2024-25/PF 45 MCG/0.5 ML SYRINGE IM. ONE (17:45)
[2024-04-02 20:45] VITALS: BP 152/76; PULSE 88; RESP 16; TEMP 97.1; O2SAT 98
[2024-04-02] MEDS: DIVALPROEX SODIUM 500 MG DR TABLET PO SCH (20:53)
[2024-04-02] MEDS: LORazepam 2 MG TABLET PO PRN (20:53)
[2024-04-02] MEDS: ZOLPIDEM TARTRATE 10 MG TABLET PO PRN (20:53)
[2024-04-02] MEDS: MELATONIN 5 MG TABLET PO SCH (20:53)
[2024-04-03 08:10] VITALS: BP 149/74; PULSE 83; RESP 16; TEMP 97.5; O2SAT 98
[2024-04-03] MEDS: LETROZOLE 2.5 MG TABLET PO SCH (08:57)
[2024-04-03] MEDS: ALLOPURINOL 300 MG TABLET PO SCH (08:57)
[2024-04-03] MEDS: AmLODIPine BESYLATE 5 MG TABLET PO SCH (08:57)
[2024-04-03] MEDS: OXYBUTYNIN CHLORIDE 5 MG ER TABLET PO SCH (08:57)
[2024-04-03 20:03] VITALS: BP 135/65; PULSE 88; RESP 17; TEMP 97
[2024-04-04 08:22] VITALS: BP 149/78; PULSE 85; RESP 16; TEMP 97.6; O2SAT 96
[2024-04-04 20:00] VITALS: BP 156/70; PULSE 70; RESP 17; TEMP 98.5; O2SAT 96
[2024-04-05] VITALS (7 sets, daily range): BP systolic 126–162; BP diastolic 55–87; PULSE 69–81; RESP 16–20; TEMP 96.9–98; O2SAT 95–98
[2024-04-06 08:13] VITALS: BP 167/96; PULSE 93; RESP 16; TEMP 96.9; O2SAT 96
[2024-04-06] MEDS: PALIPERIDONE PALMITATE 234 MG/1.5 ML SYRINGE IM SCH (09:59)
[2024-04-06 20:20] VITALS: BP 111/68; PULSE 88; RESP 18; TEMP 97.8; O2SAT 98
[2024-04-06 23:56] VITALS: BP_SYST 111; BP_SYST 128; BP_DIAS 68; BP_DIAS 70; PULSE 72; PULSE 88; RESP 18; TEMP 97; TEMP 97.8; O2SAT 98; O2SAT 99
[2024-04-07 08:13] VITALS: BP 149/64; PULSE 77; RESP 16; TEMP 97.5; O2SAT 96
[2024-04-07 13:15] VITALS: RESP 16
[2024-04-07 14:15] VITALS: RESP 17
[2024-04-07 20:00] VITALS: BP 151/63; PULSE 71; RESP 16; TEMP 97.3; O2SAT 97
[2024-04-08 08:44] VITALS: BP 122/66; PULSE 70; RESP 17; TEMP 97.4; O2SAT 95
[2024-04-09 08:14] VITALS: BP 113/65; PULSE 74; RESP 16; TEMP 97.2; O2SAT 95
[2024-04-09 17:16] VITALS: BP 141/84; PULSE 83; RESP 16; TEMP 97.7; O2SAT 96
[2024-04-10 08:20] VITALS: BP 156/75; PULSE 96; RESP 16; TEMP 97; O2SAT 95
[2024-04-10 20:37] VITALS: BP 146/60; PULSE 85; RESP 18; TEMP 97; O2SAT 97
[2024-04-11] VITALS (7 sets, daily range): BP systolic 113–138; BP diastolic 56–76; PULSE 76–86; RESP 16–18; TEMP 96.9–98; O2SAT 92–96
[2024-04-12] VITALS (7 sets, daily range): BP systolic 113–156; BP diastolic 57–83; PULSE 75–85; RESP 16–19; TEMP 97.2–101.8; O2SAT 92–95
[2024-04-12] MEDS: AZITHROMYCIN 250 MG TABLET PO SCH (18:42)
[2024-04-12 19:55] LABS: GLUCOMETER DEV NAME(LOC) POC.BV; POC SARS-COV2 AG, FIA NEGATIVE (NEGATIVE)
[2024-04-12 21:40] LABS: INFLUENZA TYPE B NEGATIVE FOR TYPE B (NEGATIVE)
[2024-04-12 22:19] LABS: INFLUENZA TYPE A POSITIVE FOR TYPE A (NEGATIVE)
[2024-04-13 08:28] VITALS: BP 150/60; PULSE 88; RESP 16; TEMP 96.9; O2SAT 96
[2024-04-13] MEDS: OSELTAMIVIR PHOSPHATE 75 MG CAPSULE PO SCH (08:51)
[2024-04-15] MEDS ORDERED: CLON0.1T2 PO (15:17)
[2024-04-15] MEDS ORDERED: OSEL75CA17 PO (15:17)
== END 2024-04-13 21:33 | disposition still patient (30) | DRG 750 ==
LOC: EMS 09:14 → B3A 14:10
PROVIDERS: ADMIT Psychiatry & Neurology Psychiatry; ATTEND Psychiatry & Neurology Psychiatry
PROC: GZHZZZZ Group Psychotherapy (ICD-10-PCS; principal; 2024-04-03)
PROC: GZ52ZZZ Individual Psychotherapy, Cognitive (ICD-10-PCS; 2024-04-03)
DX: F25.1 Schizoaffective disorder, depressive type (principal); E11.9 Type 2 diabetes mellitus without complications; E03.9 Hypothyroidism, unspecified; Z20.822 Contact with and (suspected) exposure to COVID-19; E78.5 Hyperlipidemia, unspecified; F17.200 Nicotine dependence, unspecified, uncomplicated; I10 Essential (primary) hypertension; F10.20 Alcohol dependence, uncomplicated; F15.90 Other stimulant use, unspecified, uncomplicated; J10.1 Influenza due to other identified influenza virus with other respiratory manifestations; J44.9 Chronic obstructive pulmonary disease, unspecified; N39.0 Urinary tract infection, site not specified; R32 Unspecified urinary incontinence; Z71.6 Tobacco abuse counseling; Z79.899 Other long term (current) drug therapy; Z90.49 Acquired absence of other specified parts of digestive tract; Z88.5 Allergy status to narcotic agent; M19.90 Unspecified osteoarthritis, unspecified site
CPT/HCPCS: 80048; 80076; 80164; 85025; 87081; 87804; 99285; G0480

== ENCOUNTER 2024-04-05 07:59 | Emergency (ER) | payer MEDICARE, OTHER ==
[~2024-04-05] VITALS: Ht 157.5 cm; Wt 75.5 kg
[2024-04-05 08:04] VITALS: BP 159/84; PULSE 75; RESP 16; TEMP 98.1; O2SAT 97
[2024-04-05 08:29] LABS: BASOPHILS % (AUTO) 0.9 % (0.0-2.0); EOSINOPHILS % (AUTO) 0.9 % (1.0-6.0); HEMATOCRIT 39.4 % (36-46); HEMOGLOBIN 13.1 g/dL (12.0-16.0); LYMPHOCYTES % (AUTO) 24.6 % (22.0-44.0); MEAN CORPUSCULAR HEMOGLOBIN 31.6 pg (26.0-34.0); MEAN CORPUSCULAR HGB CONC 33.2 G/dL (31.0-37.0); MEAN CORPUSCULAR VOLUME 95 fL (80-100); MONOCYTES # (AUTO) 0.6 K/uL (0.1-1.0); MONOCYTES % (AUTO) 13.8 % (2.0-9.0); NEUTROPHILS # (AUTO) 2.4 K/uL (1.8-7.7); NEUTROPHILS % (AUTO) 59.8 % (40.0-70.0); PLATELET COUNT (AUTO) 225 K/uL (150-450); RED BLOOD CELL COUNT(AUTO) 4.13 MIL/uL (4.00-5.20); RED CELL DISTRIBUTION WIDTH 14.1 % (11.5-14.5)
[2024-04-05 08:37] LABS: ANION GAP 5 mmol/L (8-16); CALCIUM, TOTAL 9.1 mg/dL (8.8-10.5); CARBON DIOXIDE 32 mmol/L (22-29); CHLORIDE 105 mmol/L (98-107); CREATININE 0.72 mg/dL (0.60-1.30); GLOMERULAR FILTR. RATE CALC > 60 mL/min (>60); GLUCOSE,RANDOM 83 mg/dL (70-110); POTASSIUM 3.9 mmol/L (3.5-5.1); SODIUM SERUM 142 mmol/L (136-145); UREA NITROGEN, BLOOD 11 mg/dL (7-18)
[2024-04-05 09:36] LABS: APPEARANCE,URINE HAZY (CLEAR); BILIRUBIN,URINE NEGATIVE (NEGATIVE); COLOR,URINE LIGHT YELLOW (YELLOW); GLUCOSE, URINE (UA) NEGATIVE (NEGATIVE); KETONES,URINE NEGATIVE (NEGATIVE); LEUKOCYTE ESTERASE ,URINE NEGATIVE (NEGATIVE); NITRATE,URINE NEGATIVE (NEGATIVE); OCCULT BLOOD,URINE NEGATIVE (NEGATIVE); PROTEIN,URINE NEGATIVE (NEGATIVE); SPECIFIC GRAVITIY, URINE 1.016 (1.003-1.030); UROBILINOGEN,URINE <=1.0 mg/dL (<=1.0)
[2024-04-05 10:23] LABS: AMORPHOUS SEDIMENT,UR Few /LPF (None Seen); BACTERIA,URINE Many /HPF (None Seen); RBC,URINE None Seen /HPF (0-2)
[2024-04-05] MEDS: CefTRIAXone SODIUM 1 GM/VIAL IM ONE (10:43)
[2024-04-05] MEDS: LIDOCAINE/PF 1% 2 ML VIAL IM ONE (10:44)
== END 2024-04-05 11:35 ==
LOC: EMS 08:03
DX: R53.1 Weakness (principal); I10 Essential (primary) hypertension; F20.9 Schizophrenia, unspecified; R51.9 Headache, unspecified; J44.9 Chronic obstructive pulmonary disease, unspecified; F12.90 Cannabis use, unspecified, uncomplicated; F15.90 Other stimulant use, unspecified, uncomplicated; F14.90 Cocaine use, unspecified, uncomplicated; F17.210 Nicotine dependence, cigarettes, uncomplicated; Z86.19 Personal history of other infectious and parasitic diseases; Z90.49 Acquired absence of other specified parts of digestive tract; Z88.5 Allergy status to narcotic agent; W05.0XXA Fall from non-moving wheelchair, initial encounter; Y93.89 Activity, other specified; Y92.239 Unspecified place in hospital as the place of occurrence of the external cause; Y99.8 Other external cause status
CPT/HCPCS: 99283; 80048; 81001; 85025; 87086; 36415; 96372; J0696; J3490

== ENCOUNTER → 2024-04-12 | Emergency (ER) | payer MEDICARE, OTHER ==
[~2024-04-12] VITALS: Ht 172.7 cm; Wt 72.0 kg
[~2024-04-12] MED LIST changes: +CLON0.1T2 PO; +OSEL75CA17 PO
[2024-04-12 00:09] VITALS: TEMP 97.5
[2024-04-12 04:15] VITALS: BP 129/63; PULSE 79; RESP 19; O2SAT 98
== END | disposition still patient (30) ==
LOC: EMS 00:01
DX: S80.01XA Contusion of right knee, initial encounter (principal); F10.20 Alcohol dependence, uncomplicated; J44.9 Chronic obstructive pulmonary disease, unspecified; I10 Essential (primary) hypertension; F20.9 Schizophrenia, unspecified; F12.90 Cannabis use, unspecified, uncomplicated; F17.210 Nicotine dependence, cigarettes, uncomplicated; F14.90 Cocaine use, unspecified, uncomplicated; F15.90 Other stimulant use, unspecified, uncomplicated; Z88.5 Allergy status to narcotic agent; Z86.19 Personal history of other infectious and parasitic diseases; Z79.899 Other long term (current) drug therapy; Z79.811 Long term (current) use of aromatase inhibitors; W19.XXXA Unspecified fall, initial encounter; Y93.89 Activity, other specified; Y92.89 Other specified places as the place of occurrence of the external cause; Y99.8 Other external cause status
CPT/HCPCS: 99283; 99285

== ENCOUNTER 2024-04-13 01:00 | Emergency (ER) | payer MEDICARE, OTHER ==
[~2024-04-13] VITALS: Ht 157.5 cm; Wt 69.5 kg
[~2024-04-13 01:00] MED LIST changes: -CLON0.1T2 PO; -OSEL75CA17 PO
[2024-04-13 01:32] LABS: HEMOGLOBIN 10.4 g/dL (12.0-16.0); MEAN CORPUSCULAR HEMOGLOBIN 31.9 pg (26.0-34.0); MEAN CORPUSCULAR HGB CONC 33.6 G/dL (31.0-37.0); MEAN CORPUSCULAR VOLUME 95 fL (80-100); PLATELET COUNT (AUTO) 114 K/uL (150-450); RED BLOOD CELL COUNT(AUTO) 3.27 MIL/uL (4.00-5.20)
[2024-04-13 01:42] LABS: ANION GAP 6 mmol/L (8-16); CALCIUM, TOTAL 8.2 mg/dL (8.8-10.5); CARBON DIOXIDE 29 mmol/L (22-29); CHLORIDE 106 mmol/L (98-107); CREATININE 0.68 mg/dL (0.60-1.30); GLOMERULAR FILTR. RATE CALC > 60 mL/min (>60); GLUCOSE,RANDOM 96 mg/dL (70-110); POTASSIUM 3.9 mmol/L (3.5-5.1); SODIUM SERUM 141 mmol/L (136-145); UREA NITROGEN, BLOOD 13 mg/dL (7-18)
[2024-04-13 01:48] LABS: ALANINE AMINOTRANSFERASE 17 U/L (12-78); ALBUMIN 2.6 g/dL (3.4-5.0); ALKALINE PHOSPHATASE 58 U/L (46-116); ASPARTATE AMINOTRANSFERASE 30 U/L (15-37); BILIRUBIN,TOTAL 0.2 mg/dL (0.1-1.0); TOTAL PROTEIN, SERUM 5.6 g/dL (6.4-8.2)
[2024-04-13 02:33] LABS: BAND NEUTROPHILS % (MANUAL) 1 % (0-5); LYMPHOCYTES % (MANUAL) 20 % (22-44); MONOCYTES % (MANUAL) 15 % (2-9); SEGMENTED NEUTROPHILS % 64 % (40-70); TOTAL CELLS COUNTED 100
[2024-04-13 05:11] VITALS: BP 124/67; PULSE 69; RESP 18; TEMP 97.9; O2SAT 97
[2024-04-15] MEDS ORDERED: OSEL75CA17 PO (15:17)
[2024-04-15] MEDS ORDERED: CLON0.1T2 PO (15:17)
== END 2024-04-13 06:34 | disposition admitted as inpatient to this hospital (09) ==
LOC: EMS 01:03
DX: J11.1 Influenza due to unidentified influenza virus with other respiratory manifestations (principal); F10.20 Alcohol dependence, uncomplicated; J44.9 Chronic obstructive pulmonary disease, unspecified; I10 Essential (primary) hypertension; F12.90 Cannabis use, unspecified, uncomplicated; F15.90 Other stimulant use, unspecified, uncomplicated; F14.90 Cocaine use, unspecified, uncomplicated; F17.210 Nicotine dependence, cigarettes, uncomplicated; F20.9 Schizophrenia, unspecified; Z79.811 Long term (current) use of aromatase inhibitors; Z79.899 Other long term (current) drug therapy; Z86.19 Personal history of other infectious and parasitic diseases; Z88.5 Allergy status to narcotic agent
CPT/HCPCS: 71046; 80048; 80076; 85025; 99285; 36415-L1; 36415-TC